=== PATIENT | female | born 1960 | race Caucasian/White ===

== ENCOUNTER 2019-12-11 15:02 | Emergency (ER) | payer BC, SELFPAY ==
[2019-12-11 15:24] VITALS: BP 142/82; PULSE 86; RESP 18; TEMP 36.7; O2SAT 96
--- NOTE | 2019-12-11 21:38 | ED.UPPEXIN ---
HPI - Extremity Injury (Upper) General Chief Complaint: Extremity Injury, Upper Stated Complaint: left arm swelling Time Seen by Provider: 12/11/19 16:04 Source: patient Mode of arrival: ambulatory Limitations: no limitations History of Present Illness HPI narrative: Patient presents for tingling and pain in her left upper extremity that began after falling on the extremity 3 months ago. Patient states that she complains of has had intermittent discomfort to the area since the event. Patient states that she has had x-ray imaging of her neck shoulder and arm which were negative. Patient reports she has intermittent tingling and cramping-like pain to the left arm. Patient reports she does have a history of neuropathy and she has had to have nerve conduction studies on her lower extremities. Patient denies new injury or direct injury to her neck. Patient denies any chest pain or pain radiating from her chest into her jaw or in her arm. Patient states that she had a EKG on due to her impending surgery which was normal. Related Data Home Medications Medication Instructions Recorded Confirmed acetaminophen-codeine tablet 12/11/19 atorvastatin 12/11/19 fluoxetine mg 12/11/19 omeprazole 12/11/19 ropinirole mg 12/11/19 sucralfate 12/11/19 Allergies Allergy/AdvReac Type Severity Reaction Status Date / Time hydrocodone Allergy Severe HALLUCINATI Verified 11/03/18 14:38 ONS morphine Allergy Severe ANAPHYLAXIS Verified 11/03/18 14:38 adhesive tape Allergy Intermediate Rash Verified 11/03/18 14:38 latex Allergy Unknown Itching Verified 12/11/19 16:01 Sulfa (Sulfonamide Allergy Unknown shortness Verified 10/02/15 14:16 Antibiotics) of breath and itching sulfanilamide Allergy Unknown Anaphylaxis Verified 12/11/19 16:01 Review of Systems Review of Systems: Narrative: CONSTITUTIONAL: Denies fever, chills, or sweats. EYES: Denies visual changes, redness, or discharge. ENT: Denies rhinorrhea, congestion, sore throat, or otalgia. CARDIOVASCULAR: Denies chest pain, palpitations, or edema. RESPIRATORY: Denies cough or dyspnea. GASTROINTESTINAL: Denies abdominal pain, nausea, vomiting, or diarrhea. GENITOURINARY: Denies dysuria or hematuria. SKIN: Denies rash or itching. MUSCULOSKELETAL: Reports left arm pain denies back pain, joint pain, or myalgia. NEUROLOGIC: Denies headache, numbness, dizziness, or weakness. PSYCHIATRIC: Denies anxiety or depression. [facility] Past Medical History Medical History (Updated 12/11/19 @ 17:10 by Donnie Briones PA-C) History of hypertension History of sleep apnea Surgical History Surgical History (Updated 05/14/19 @ 14:48 by Karen Bosch PA-C) History of cholecystectomy History of hysterectomy History of inguinal hernia repair Family History Family History (Updated 12/07/15 @ 23:19 by DOCTOR UNKNOWN) Father Hypertension Cerebrovascular accident Family history of diabetes mellitus in first degree relative Family history of heart disease in male family member before age 55 Family history of type 1 diabetes mellitus Mother Hypertension Family history of malignant neoplasm of breast in first degree relative Other Asthma Depression Family history of allergic disorder Family history of arthritis Social History Social History Smoking status: Never smoker Second hand tobacco smoke exposure: No Alcohol intake: never Gender identity (if verbalized by the patient): Female Exam Narrative: Exam Narrative: GENERAL: Well-appearing, well-nourished, and in no acute distress. HEAD: Normocephalic, atraumatic. EYES: PERRLA and EOMI. ENT: Nares clear, no rhinorrhea or epistaxis. Mucous membranes moist. Oropharynx without tonsillar hypertrophy exudate or other lesions. Bilateral TMs pearly benavidez nonbulging NECK: Supple. No adenopathy or masses. CHEST: Clear to auscultation. No respiratory distress. No wheezes rales or rhonchi HEART: Regu
== END 2019-12-11 17:25 | disposition home or self-care (01) ==
PROVIDERS: Emergency Provider Emergency Medicine; PCP Nurse Practitioner Adult Health
DX: M79.602 Pain in left arm (principal); R20.2 Paresthesia of skin; I10 Essential (primary) hypertension; G47.30 Sleep apnea, unspecified
CPT/HCPCS: 99282

== ENCOUNTER 2020-02-08 18:52 | Emergency (ER) | payer BC, SELFPAY ==
--- NOTE | ~2020-02-08 | XR_ITS ---
EXAMINATION: XR wrist RT min 3V DATE: 02/08/2020 19:33 INDICATION: Annual sided right wrist pain TECHNIQUE: Posteroanterior, ulnar deviation, oblique, and lateral views of the right wrist were obtai rgant. COMPARISON: none FINDINGS: Alignment is normal. No fracture. Mild osteoarthritis at the first metacarpophalangeal and interphala ngeal joints. No cortical erosions. Soft tissues are unremarkable. IMPRESSION: 1. 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 No acute osseous abnormality. Reviewed, dictated and finalized at location A.
[2020-02-08 18:57] VITALS: BP 124/75; PULSE 78; RESP 16; TEMP 36.1; O2SAT 100
--- NOTE | 2020-02-08 19:30 | ED.GENADULT ---
HPI - General Adult General Chief complaint: Extremity Injury, Upper Stated complaint: hurt my wrist Time Seen by Provider: 02/08/20 19:00 Source: patient Mode of arrival: ambulatory Limitations: no limitations History of Present Illness HPI narrative: Patient is a 59-year-old female who presents to emergency department for evaluation of right wrist pain since the weekend after lifting objects patient notes pain along the radial aspect of the wrist worse with activity and movement. Patient denies other injury or trauma taking anti-inflammatory with minimal improvement Related Data Home Medications Medication Instructions Recorded Confirmed fluoxetine 60 mg DAILY 12/11/19 omeprazole DAILY 12/11/19 ropinirole mg HS 12/11/19 pregabalin BID 02/08/20 trazodone HS 02/08/20 Allergies Allergy/AdvReac Type Severity Reaction Status Date / Time hydrocodone Allergy Severe HALLUCINATI Verified 02/08/20 19:08 ONS morphine Allergy Severe ANAPHYLAXIS Verified 02/08/20 19:08 adhesive tape Allergy Intermediate Rash Verified 02/08/20 19:08 latex Allergy Intermediate Itching Verified 02/08/20 19:08 Sulfa (Sulfonamide Allergy Unknown shortness Verified 02/08/20 19:08 Antibiotics) of breath and itching Review of Systems Review of Systems: All systems reviewed & are unremarkable except as noted in HPI and below PMFSH Past Medical History Medical History History of hypertension History of sleep apnea Surgical History Surgical History History of cholecystectomy History of hysterectomy History of inguinal hernia repair Family History Family History (Updated 12/07/15 @ 23:19 by DOCTOR UNKNOWN) Father Hypertension Cerebrovascular accident Family history of diabetes mellitus in first degree relative Family history of heart disease in male family member before age 55 Family history of type 1 diabetes mellitus Mother Hypertension Family history of malignant neoplasm of breast in first degree relative Other Asthma Depression Family history of allergic disorder Family history of arthritis Social History Social History Smoking status: Never smoker Second hand tobacco smoke exposure: No Alcohol intake: never Gender identity (if verbalized by the patient): Female Exam Narrative: Exam Narrative: GENERAL: Well-appearing, well-nourished, and in no acute distress. HEAD: Normocephalic, atraumatic. EYES: PERRLA and EOMI. ENT: Nares clear, no rhinorrhea or epistaxis. Mucous membranes moist. EXTREMITIES: Normal range of motion. No edema. Tenderness of the radial aspect of the right wrist with no deformity noted SKIN: Warm, dry, no rash. NEURO: No focal deficits. Alert and oriented x3. Neurovascularly intact. Capillary refill less than 2 seconds PSYCH: Normal mood and affect. Course Course Emergency Course: Patient in the room in no distress aware of case findings treatment plan and diagnosis Vital Signs Vital signs: Vital Signs Temperature 96.9 F L 02/08/20 18:57 Pulse Rate 78 02/08/20 18:57 Respiratory Rate 16 02/08/20 18:57 Blood Pressure 124/75 02/08/20 18:57 Pulse Oximetry 100 02/08/20 18:57 Temperature 96.9 F L 02/08/20 18:57 Pulse Rate 78 02/08/20 18:57 Respiratory Rate 16 02/08/20 18:57 Blood Pressure 124/75 02/08/20 18:57 Pulse Oximetry 100 02/08/20 18:57 Medical Decision Making [facility] Narrative Medical decision making narrative: Patients injury or pain is consistent with musculoskeletal etiology. No signs of neurological or vascular compromise on exam. Compartments and tisues are soft without signs of compartment syndrome. Pain is felt appropriate for further evaluation on an outpatient basis. Vital Signs Vital Signs: Vital Signs Temperature 96.9 F L 02/08/20 18:57
[2020-02-08 19:56] VITALS: BP 123/81; PULSE 77; RESP 16; TEMP 36.7; O2SAT 100
== END 2020-02-08 19:57 | disposition home or self-care (01) ==
PROVIDERS: Emergency Provider Emergency Medicine; PCP Nurse Practitioner Adult Health
DX: S63.501A Unspecified sprain of right wrist, initial encounter (principal); S66.911A Strain of unspecified muscle, fascia and tendon at wrist and hand level, right hand, initial encounter; I10 Essential (primary) hypertension; G47.30 Sleep apnea, unspecified; X50.0XXA Overexertion from strenuous movement or load, initial encounter
CPT/HCPCS: 73110; 99283

== ENCOUNTER 2020-02-28 17:13 | Emergency (ER) | payer BC, SELFPAY ==
--- NOTE | ~2020-02-28 | XR_ITS ---
EXAMINATION: XR chest 2V EXAM DATE: 02/28/2020 17:38 INDICATION: Mid chest pain O2opxak, shortness of breath, Hx hypertension, Worse Laying Down . TECHNIQUE: Frontal and lateral projections of the chest obtained and reviewed. Comparison is made to prior examination from 05/14/2019. FINDINGS: The lungs are clear. There are no pleural effusions. The cardiomediastinal silhouette is within normal limits. There is no pneumothorax suspected. The bones and soft tissues are unremarkab le. Gastric banding device. IMPRESSION: No acute cardiopulmonary findings. Reviewed, dictated and finalized at location A.
--- NOTE | ~2020-02-28 | CT_ITS ---
EXAMINATION: CTA chest PE protocol EXAM DATE: 02/28/2020 19:26 INDICATION: Shortness of breath, chest pain for 3 weeks. TECHNIQUE: Spiral CTA of the chest (pulmonary arteries) was performed with 100 cc Omnipaque 350 intr avenous contrast injection. Images were acquired during the pulmonary arterial phase. Coronal maxi mum intensity projection 3D-reconstructions were created by the technologist on dedicated workstation . Axial, coronal and sagittal reformatted images were reviewed. The dose-length product (DLP) for t his examination was 996.40 mGy-cm. The exposure was tailored according to patient size (auto mA exp osure control), and iterative reconstruction (ASIR) was used as additional dose reduction technique. There is no prior study for comparison. FINDINGS: Pulmonary arteries are well opacified and without intraluminal filling defects. No thorac ic aortic dissection. Linear left basilar atelectasis. Some dependent mosaic attenuation, appearance most consistent with air trapping. No confluent consolidation. There are no pleural or pericardial effusions. Tracheobronchial tree is patent. There is no mediastinal, hilar or axillary lymphadeno henny. There is no pneumothorax. Heart normal in size. No evidence of coronary arterial calcifi cation. Gastric banding device. Cholecystectomy clips. There is moderate thoracic spondylosis witho ut osteoblastic or osteolytic lesions identified. IMPRESSION: 1. No pulmonary emboli. 2. Left basilar linear atelectasis. 3. Dependent mosaic attenuation probably air trapping. Reviewed, dictated and finalized at location A.
--- NOTE | 2020-02-28 17:13 | ECG_ITS ---
Measurements Intervals [place] Rate: 81 P: 31 ME: 146 QRS: -1 QRSD: 97 T: 16 QT: 384 QTc: 448 Interpretive Statements SINUS RHYTHM VOLTAGE CRITERIA FOR LVH BORDERLINE ECG Electronically Signed On 02-29-2020 6:43:11 CDT by Corey Olivia D.O.
[2020-02-28 17:14] VITALS: BP 136/72; PULSE 83; RESP 15; TEMP 36.6; O2SAT 97
[2020-02-28 17:21] VITALS: BP 136/72; PULSE 83; PULSE 86; RESP 20; O2SAT 97
--- NOTE | 2020-02-28 17:23 | ED.GENADULT ---
HPI - General Adult General Chief complaint: Chest Pain Stated complaint: CP/SOB Time Seen by Provider: 02/28/20 17:16 Source: patient History of Present Illness HPI narrative: Patient is a 59 y/o female complaining of intermittent chest pain during last 3 weeks. Her current episode of pain started 2 days ago. She states that her pain is located in the midsternal area with radiation to left arm sometimes. She rates her pain as 5/10 and she states laying down aggravates her pain sometimes. She has a chronic cough. She denies any fever, chills or shortness of breath. Related Data Home Medications Medication Instructions Recorded Confirmed fluoxetine 60 mg DAILY 12/11/19 omeprazole DAILY 12/11/19 ropinirole mg HS 12/11/19 pregabalin BID 02/08/20 trazodone HS 02/08/20 acetaminophen-codeine 1 tablet PO Q6H PRN 02/28/20 aspirin 81 mg PO DAILY 02/28/20 celecoxib 200 mg PO DAILY 02/28/20 fluconazole [Diflucan] 100 mg PO DAILY 02/28/20 fluoxetine 40 mg PO DAILY 02/28/20 lidocaine HCl [Lidocaine Viscous] 1 applic MUCOUS MEMBRANE TID PRN 02/28/20 nystatin unit VAGINAL 02/28/20 02/28/20 rosuvastatin 20 mg PO DAILY 02/28/20 sucralfate g 02/28/20 02/28/20 tizanidine 4 mg PO Q8H PRN 02/28/20 Allergies Allergy/AdvReac Type Severity Reaction Status Date / Time hydrocodone Allergy Severe HALLUCINATI Verified 02/08/20 19:08 ONS morphine Allergy Severe ANAPHYLAXIS Verified 02/08/20 19:08 adhesive tape Allergy Intermediate Rash Verified 02/08/20 19:08 latex Allergy Intermediate Itching Verified 02/08/20 19:08 Sulfa (Sulfonamide Allergy Unknown shortness Verified 02/08/20 19:08 Antibiotics) of breath and itching Review of Systems Constitutional: Constitutional: Denies chills, Denies fever(s), Denies headache(s) and Denies weakness Eyes: Eyes: Denies blurry vision ENT: Denies headache(s) and Denies neck pain Cardiovascular: Cardiovascular: Reports chest pain and Denies dyspnea Respiratory: Respiratory: Reports cough and Denies dyspnea Gastrointestinal: Gastrointestinal: Denies abdominal pain, Denies diarrhea, Denies nausea and Denies vomiting Genitourinary: Genitourinary: Denies hematuria and Denies dysuria Musculoskeletal: Musculoskeletal: Denies back pain and Denies neck pain Neurologic: Denies headache(s) and Denies weakness [facility] Past Medical History Medical History (Updated 02/28/20 @ 21:12 by Darshana Rogers MD) History of hypertension History of sleep apnea Surgical History Surgical History History of cholecystectomy History of hysterectomy History of inguinal hernia repair Family History Family History Father Hypertension Cerebrovascular accident Family history of diabetes mellitus in first degree relative Family history of heart disease in male family member before age 55 Family history of type 1 diabetes mellitus Mother Hypertension Family history of malignant neoplasm of breast in first degree relative Other Asthma Depression Family history of allergic disorder Family history of arthritis Social History Social History Smoking status: Never smoker Second hand tobacco smoke exposure: No Alcohol intake: never Gender identity (if verbalized by the patient): Female Exam Const: General: no acute distress and well developed Orientation/consciousness: oriented to person, oriented to place, oriented to time and patient oriented x3 HENMT: Head: normocephalic Ears: external ears normal General nose exam: Normal external nose present Eyes: General: appearance normal, both eyes and all related structures Conjunctivae: conjunctivae normal Neck: Neck: normal visual inspection and full ROM Chest: Chest palpation & inspection: normal inspection of the chest and no tenderness Resp: Effort & Inspection: nor
[2020-02-28 17:41] LABS: Basophils Percent Auto 0.5 % (0.2-1.2); Eosinophils Absolute Auto 0.4 K/mm3 (0-0.3); Eosinophils Percent Auto 4.6 % (0-4.4); Hematocrit 35.5 % (37.0-47.0); Hemoglobin 11.1 g/dL (12.0-15.0); Immature Granulocyte Absolute 0.04 K/mm3 (0.00-0.031); Immature Granulocyte Percent A 0.5 % (0-0.5); Lymphocytes Absolute Auto 1.69 K/mm3 (0.9-3.2); Lymphocytes Percent Auto 19.1 % (18.3-44.2); Mean Corpuscular HGB Conc 31.3 g/dl (32-36); Mean Corpuscular Hemoglobin 25.8 pg (26-34); Mean Corpuscular Volume 82.6 fl (80-100); Mean Platelet Volume 10.5 fl (7.4-10.4); Monocytes Absolute Auto 0.6 K/mm3 (0.1-0.6); Monocytes Percent Auto 6.7 % (2.6-8.5); Neutrophils Absolute Auto 6.1 K/mm3 (1.3-6.7); Neutrophils Percent Auto 68.6 % (45.5-73.1); Platelet Count Result 272 k/mm3 (150-375); Red Cell Distribution Width 14.7 % (11.5-14.5); White Blood Count 8.8 K/mm3 (4.5-10.0)
--- NOTE | 2020-02-28 17:46 | PC.NURSE ---
RADHA OCONNOR INFORMED THAT PT IS MODERATE RISK ON COLUM[place]IA SCALE, NO NEW ORDERS.
[2020-02-28 17:54] LABS: Anion Gap 4 mmol/L (8-16); Blood Urea Nitrogen 19 mg/dL (7-17); Calcium 9.2 mg/dL (8.4-10.2); Carbon Dioxide 33 mmol/L (22-30); Chloride 101 mmol/L (98-107); Estimated CRCL calculation 75 ml/min; Estimated Glomerular Filt Rate > 60; Glucose 93 mg/dL (65-105); Potassium 4.2 mmol/L (3.4-5.0); Prothrombin Time 13.2 Seconds (11.1-14.7); Sodium 138 mmol/L (137-145)
[2020-02-28 17:55] LABS: Partial Thromboplastin Time 26.6 SECONDS (22.3-36.8)
[2020-02-28 18:05] LABS: Troponin I < 0.012 ng/mL (0.000-0.034)
--- NOTE | 2020-02-28 18:38 | PC.NURSE ---
PT BACK FROM CT ASKING FOR AC IV FOR CONTRAST, DOES NOT WANT CONTRAST MEDIA PUSHED THROUGH WRIST IV THAT IS IN PLACE.
[2020-02-28 18:39] VITALS: BP 119/73; PULSE 87; RESP 20; O2SAT 97
[2020-02-28 19:00] VITALS: BP 123/73; PULSE 84; RESP 16; O2SAT 100
--- NOTE | 2020-02-28 19:13 | PC.NURSE ---
REPORT TO ANIVAL PUGA AT THIS TIME, SHE HAS ASSUMED PT CARE.
--- NOTE | 2020-02-28 19:13 | PC.NURSE ---
Assumed care of pt. Report from VIVIEN Payne
[2020-02-28 19:46] VITALS: BP 113/67; PULSE 85; RESP 20; O2SAT 98
[2020-02-28 20:33] LABS: Troponin I < 0.012 ng/mL (0.000-0.034)
[2020-02-28 21:15] VITALS: BP 111/64; PULSE 79; RESP 14; O2SAT 99
== END 2020-02-28 21:15 | disposition home or self-care (01) ==
PROVIDERS: Emergency Provider Emergency Medicine; PCP Nurse Practitioner Adult Health
DX: R07.9 Chest pain, unspecified (principal); I10 Essential (primary) hypertension; G47.30 Sleep apnea, unspecified
CPT/HCPCS: 36415; 71046; 71275; 80048; 84484; 85025; 85380; 85610; 85730; 93005; 99284; Q9967

== ENCOUNTER 2022-08-22 19:44 | Emergency (ER) | payer OTHER, SELFPAY ==
--- NOTE | 2022-08-22 19:46 | ED.GENADULT ---
HPI - General Adult General Chief complaint: Dental/Oral Stated complaint: MOUTH PAIN/SWELLING Time Seen by Provider: 08/22/22 19:48 Source: patient, RN notes reviewed and old records reviewed Mode of arrival: ambulatory Limitations: no limitations History of Present Illness HPI narrative: 61-year-old female presents to the [facility] with complaints of 3 hours of feeling like her mouth is swollen and painful has taken Benadryl, used mouthwash, use her nystatin Related Data Home Medications Medication Instructions Recorded Confirmed fluoxetine 20 mg capsule 60 mg DAILY 12/11/19 omeprazole 20 mg capsule,delayed DAILY 12/11/19 release ropinirole 1 mg tablet mg HS 12/11/19 pregabalin 150 mg capsule BID 02/08/20 trazodone 100 mg tablet HS 02/08/20 acetaminophen 300 mg-codeine 30 mg 1 tablet PO Q6H PRN Pain 02/28/20 tablet fluoxetine 40 mg capsule 40 mg PO DAILY 02/28/20 lidocaine HCl 2 % mucosal solution 1 applic mucous membrane TID PRN 02/28/20 (Lidocaine Viscous) Pain nystatin 100,000 unit vaginal unit vaginal 02/28/20 02/28/20 tablet Allergies Allergy/AdvReac Type Severity Reaction Status Date / Time hydrocodone Allergy Severe HALLUCINATI Verified 08/22/22 19:52 ONS morphine Allergy Severe ANAPHYLAXIS Verified 08/22/22 19:52 adhesive tape Allergy Intermediate Rash Verified 08/22/22 19:52 latex Allergy Intermediate Itching Verified 08/22/22 19:52 Sulfa (Sulfonamide Allergy Unknown shortness Verified 08/22/22 19:52 Antibiotics) of breath and itching Review of Systems Review of Systems: All systems reviewed & are unremarkable except as noted in HPI and below Constitutional: Constitutional: Reports no additional constitutional complaints Eyes: Eyes: Reports no additional eye complaints ENT: Reports as per HPI Cardiovascular: Cardiovascular: Reports no additional cardiovascular complaints, Denies chest pain and Denies dyspnea Respiratory: Respiratory: Reports no additional respiratory complaints, Denies chest congestion, Denies cough and Denies dyspnea Gastrointestinal: Gastrointestinal: Reports no additional gastrointestinal complaints, Denies abdominal pain, Denies nausea and Denies vomiting Musculoskeletal: Musculoskeletal: Reports no additional musculoskeletal complaints Integumentary/Breasts: Skin/Breast: Reports system reviewed and no additional complaints, except as docu Neurologic: Reports system reviewed and no additional complaints, except as documented Psychiatric: Psychiatric: Reports no additional psychiatric complaints Allergic/Immunologic: Allergic/Immunologic: Reports no additional allergic/immunologic complaints [facility] Past Medical History Medical History History of hypertension History of sleep apnea Surgical History Surgical History History of cholecystectomy History of hysterectomy History of inguinal hernia repair Family History Family History Father Hypertension Cerebrovascular accident Family history of diabetes mellitus in first degree relative Family history of heart disease in male family member before age 55 Family history of type 1 diabetes mellitus Mother Hypertension Family history of malignant neoplasm of breast in first degree relative Other Asthma Depression Family history of allergic disorder Family history of arthritis Social History Social History Smoking status: Never smoker Second hand tobacco smoke exposure: No Alcohol intake: never Gender identity (if verbalized by the patient): Female Comments At the time of my signature, I reviewed and agree with the nursing past medical, surgical, social, and family history. There is no relevant family history pertinent to the patient complaint. E
[2022-08-22 19:51] VITALS: BP 140/71; PULSE 77; RESP 16; TEMP 36.6; O2SAT 100
[2022-08-22 19:57] VITALS: BP 140/71; PULSE 77; RESP 16; TEMP 36.6; O2SAT 100
== END 2022-08-22 20:02 | disposition home or self-care (01) ==
PROVIDERS: Emergency Provider Nurse Practitioner
DX: K08.89 Other specified disorders of teeth and supporting structures (principal); I10 Essential (primary) hypertension
CPT/HCPCS: 99213; G0463

== ENCOUNTER 2022-09-17 08:09 | Emergency (ER) | payer OTHER, SELFPAY ==
[2022-09-17] VITALS (10 sets, daily range): BP systolic 95–148; BP diastolic 56–66; PULSE 83–100; RESP 17–22; TEMP 36.6–39.5; O2SAT 92–100
--- NOTE | ~2022-09-17 | XR_ITS ---
Clinical Indication: Shortness of breath, chest pain AP and lateral views of the chest: Comparison: 02/28/2020 Findings: The lungs are clear, without evidence of focal consolidation or pleural effusion. Cardiome diastinal silhouette is within normal limits. Bones and soft tissues are unremarkable. Impression: Normal chest. Reviewed, dictated and finalized at location . Impression: Normal chest.
--- NOTE | ~2022-09-17 | CT_ITS ---
EXAMINATION: CT BRAIN W/O DATE: 09/17/2022 09:02 INDICATION: Head injury. TECHNIQUE: Computed tomography (CT) of the head was performed without intravenous contrast. The dose- length product was 1059.33 mGy-cm. Automated exposure control and iterative reconstruction technique were employed. COMPARISON: No prior studies for comparison. FINDINGS: Normal brain parenchymal volume for age. Normal benavidez-white differentiation. No acute intrac ranial hemorrhage, infarction, mass or mass effect. No ventriculomegaly or midline shift. Midline sagittal images demonstrate a normal corpus callosum, c raniovertebral junction and sella turcica. Basilar cisterns are patent. There is a small air-fluid level in the right maxillary sinus. There is mucosal thickening of the eth moid sinuses. Mastoids are pneumatized. No depressed skull fractures. IMPRESSION: 1. No acute intracranial abnormality. Reviewed, dictated and finalized at location B.
--- NOTE | 2022-09-17 08:21 | ECG_ITS ---
Measurements Intervals [place] Rate: 88 P: 49 HI: 142 QRS: 18 QRSD: 90 T: 42 QT: 341 QTc: 413 Interpretive Statements SINUS RHYTHM NONSPECIFIC ST & T-WAVE ABNORMALITY- ANTEROLAT/INF LEADS BORDERLINE ECG COMPARED TO ECG 02/28/2020 17:17:02 ST-T WAVE ABNORMALITY NOW PRESENT Electronically Signed On 09-17-2022 9:02:55 CDT by Corey Olivia D.O.
[2022-09-17] MEDS: ASPIRIN 81 MG CHEWABLE TABLET 324 MG PO (08:38)
[2022-09-17 08:47] LABS: Basophils Percent Auto 0.5 % (0.2-1.2); Eosinophils Absolute Auto 0.3 K/mm3 (0-0.3); Eosinophils Percent Auto 3.6 % (0-4.4); Hematocrit 35.9 % (37.0-47.0); Hemoglobin 10.9 g/dL (12.0-15.0); Immature Granulocyte Absolute 0.02 K/mm3 (0.00-0.031); Immature Granulocyte Percent A 0.2 % (0-0.5); Lymphocytes Absolute Auto 0.75 K/mm3 (0.9-3.2); Lymphocytes Percent Auto 8.7 % (18.3-44.2); Mean Corpuscular HGB Conc 30.4 g/dl (32-36); Mean Corpuscular Hemoglobin 26.1 pg (26-34); Mean Corpuscular Volume 86.1 fl (80-100); Mean Platelet Volume 10.3 fl (7.4-10.4); Monocytes Absolute Auto 0.3 K/mm3 (0.1-0.6); Monocytes Percent Auto 3.9 % (2.6-8.5); Neutrophils Absolute Auto 7.2 K/mm3 (1.3-6.7); Neutrophils Percent Auto 83.1 % (45.5-73.1); Platelet Count Result 221 k/mm3 (150-375); Red Blood Count 4.17 M/mm3 (4.2-5.4); Red Cell Distribution Width 16.6 % (11.5-14.5); White Blood Count 8.6 K/mm3 (4.5-10.0)
[2022-09-17] MEDS: LEVALBUTEROL NEB 1.25 MG/3 ML 2.5 MG INHALATION (08:55)
[2022-09-17] MEDS: IPRATROPIUM BR 0.02% INH SOLN 0.5 MG/2.5 ML VIAL 1.5 MG INHALATION (08:55)
[2022-09-17 08:58] LABS: Alanine Aminotransferase 31 U/L (6-35); Albumin Level 4.1 g/dL (3.5-5.1); Alkaline Phosphatase 92 U/L (38-126); Anion Gap 7 mmol/L (8-16); Aspartate Amino Transferase 44 U/L (14-36); Bilirubin,Total 0.7 mg/dL (0.2-1.3); Blood Urea Nitrogen 9 mg/dL (7-17); Calcium 8.9 mg/dL (8.4-10.2); Carbon Dioxide 30 mmol/L (22-30); Chloride 103 mmol/L (98-107); Estimated CRCL calculation 62 ml/min; Estimated Glomerular Filt Rate 56; Glucose 96 mg/dL (65-110); Lipase 47 U/L (23-300); Sodium 140 mmol/L (137-145)
[2022-09-17 09:04] LABS: Prothrombin Time 13.5 Seconds (11.1-14.7)
[2022-09-17 09:05] LABS: Partial Thromboplastin Time 28.7 SECONDS (22.3-36.8)
[2022-09-17 09:09] LABS: Troponin I < 0.012 ng/mL (0.000-0.034)
[2022-09-17] MEDS: KETOROLAC 30 MG/ML VIAL (*BKC) IV PUSH (10:50)
--- NOTE | 2022-09-17 10:50 | PC.NURSE ---
Pt states she feels feverish, temp obtained, axillary temp of 103.1, Dr. Thompson notified
--- NOTE | 2022-09-17 11:04 | ED.GENADULT ---
HPI - General Adult General Chief complaint: Unspecified Stated complaint: i cant have hardly breath Time Seen by Provider: 09/17/22 08:28 History of Present Illness HPI narrative: Patient is a 61-year-old female who presents ER with multiple complaints. Her major complaint is shortness of breath beginning 2 days ago after mowing the lawn. She has developed productive cough and shortness of breath that worsened last night. Subjective fevers and chills. She has chest pain that is described as tight. Patient has frequent coughing and has trouble finishing a sentence. Patient also reports that she fell 10 days ago off of a deck. No loss of consciousness but has had some mild headache since then. No extremity injury or numbness or tingling. She is not on any blood thinners. Related Data Home Medications Medication Instructions Recorded Confirmed fluoxetine 20 mg capsule 60 mg DAILY 12/11/19 08/22/22 omeprazole 20 mg capsule,delayed 20 mg PO DAILY 12/11/19 08/22/22 release ropinirole 1 mg tablet 1 mg PO HS 12/11/19 08/22/22 pregabalin 150 mg capsule 150 mg PO BID 02/08/20 08/22/22 trazodone 100 mg tablet 100 mg PO HS 02/08/20 08/22/22 acetaminophen 300 mg-codeine 30 mg 1 tablet PO Q6H PRN Pain 02/28/20 08/22/22 tablet fluoxetine 40 mg capsule 40 mg PO DAILY 02/28/20 08/22/22 lidocaine HCl 2 % mucosal solution 1 applic mucous membrane TID PRN 02/28/20 08/22/22 (Lidocaine Viscous) Pain nystatin 100,000 unit vaginal 1 unit vaginal DAILY 02/28/20 08/22/22 tablet Allergies Allergy/AdvReac Type Severity Reaction Status Date / Time hydrocodone Allergy Severe HALLUCINATI Verified 08/22/22 19:52 ONS morphine Allergy Severe ANAPHYLAXIS Verified 08/22/22 19:52 adhesive tape Allergy Intermediate Rash Verified 08/22/22 19:52 latex Allergy Intermediate Itching Verified 08/22/22 19:52 Sulfa (Sulfonamide Allergy Unknown shortness Verified 08/22/22 19:52 Antibiotics) of breath and itching Review of Systems Review of Systems: All systems reviewed & are unremarkable except as noted in HPI and below Constitutional: Constitutional: Denies chills and Denies fever(s) ENT: Denies sinus pressure and Denies sore throat Cardiovascular: Cardiovascular: Reports chest pain, Denies radiating jaw, neck or arm pain and Denies palpitations Respiratory: Respiratory: Reports cough, Reports dyspnea and Reports wheezing Gastrointestinal: Gastrointestinal: Denies abdominal pain, Denies diarrhea, Denies nausea and Denies vomiting PMFSH Past Medical History Medical History (Updated 09/17/22 @ 13:34 by Trey Thompson MD) History of hypertension History of sleep apnea Surgical History Surgical History History of cholecystectomy History of hysterectomy History of inguinal hernia repair Family History Family History Father Hypertension Cerebrovascular accident Family history of diabetes mellitus in first degree relative Family history of heart disease in male family member before age 55 Family history of type 1 diabetes mellitus Mother Hypertension Family history of malignant neoplasm of breast in first degree relative Other Asthma Depression Family history of allergic disorder Family history of arthritis Social History Social History Smoking status: Never smoker Second hand tobacco smoke exposure: No Alcohol intake: never Gender identity (if verbalized by the patient): Female Exam Narrative: GENERAL: Ill-appearing, well-nourished, and in no acute distress. HEAD: Normocephalic, atraumatic. EYES: PERRL and EOMI. ENT: Mucous membranes moist. CHEST: Coarse rales and wheezing bilaterally with frequent coughing. Mild respiratory distress. HEART: Regular rate and rhythm. Normal peripheral pulses. ABDOMEN: Soft, nontender, nondi
[2022-09-17] MEDS: POTASSIUM CHLORIDE 20 MEQ TABLET 40 MEQ PO (11:25)
[2022-09-17 11:56] LABS: Influenza A QL RT-PCR Negative (Negative); Influenza B QL RT-PCR Negative (Negative); SARS-CoV-2 RNA PCR Negative (Negative)
[2022-09-17 12:01] LABS: Troponin I < 0.012 ng/mL (0.000-0.034)
== END 2022-09-17 13:48 | disposition home or self-care (01) ==
PROVIDERS: Emergency Provider Emergency Medicine; PCP Physician Assistant
DX: J18.9 Pneumonia, unspecified organism (principal); R09.1 Pleurisy; Z20.822 Contact with and (suspected) exposure to COVID-19; I10 Essential (primary) hypertension; G47.30 Sleep apnea, unspecified; Z90.710 Acquired absence of both cervix and uterus; R94.31 Abnormal electrocardiogram [ECG] [EKG]
CPT/HCPCS: 36415; 70450; 71046; 80053; 83690; 84484; 85025; 85610; 85730; 87636; 93005; 94640; 96374; 99284; A9270; J1885

== ENCOUNTER 2022-10-02 18:28 | Emergency (ER) | payer OTHER, SELFPAY ==
--- NOTE | ~2022-10-02 | XR_ITS ---
EXAMINATION: XR chest 2V DATE: 10/02/2022 20:20 INDICATION: Shortness of breath. Pneumonia. TECHNIQUE: Frontal and lateral views of the chest were obtained. COMPARISON: Chest 2 views 09/17/2022 FINDINGS: The chest demonstrates clear lungs without pneumonia, pleural effusion, or pneumothorax. Th e heart size is normal. There is mild chronic anterior wedging of multiple vertebral bodies. There ar e surgical clips in the abdomen. IMPRESSION: 1. No acute cardiopulmonary disease. Reviewed, dictated and finalized at location E.
[2022-10-02 18:38] VITALS: BP 135/74; PULSE 72; RESP 18; TEMP 36.8; O2SAT 98
--- NOTE | 2022-10-02 18:42 | ECG_ITS ---
Measurements Intervals [place] Rate: 68 P: 42 GA: 168 QRS: 8 QRSD: 101 T: -2 QT: 401 QTc: 428 Interpretive Statements SINUS RHYTHM DELAYED PRECORDIAL R/S TRANSITION NONSPECIFIC ST & T-WAVE ABNORMALITY- ANT/INF LEADS BASELINE ARTIFACT- V5 BORDERLINE ECG COMPARED TO ECG 09/17/2022 08:27:15 NO SIGNIFICANT CHANGES Electronically Signed On 10-03-2022 6:33:36 CDT by Corey Olivia D.O.
--- NOTE | 2022-10-02 19:29 | ED.GENADULT ---
HPI - General Adult General Chief complaint: Shortness of Breath/Dyspnea Stated complaint: Mouth pain Time Seen by Provider: 10/02/22 19:02 History of Present Illness HPI narrative: This is a 61-year-old female with history of fibromyalgia presenting ED with mouth pain. The patient is diagnosed with pneumonia last week and was treated with antibiotics. Her condition is improved but she has developed pain throughout her mouth. She relates it to when she has had thrush in the past. She has been taking Tylenol threes with some improvement. She does have a residual cough from the ammonia that has been bothering her but she is not taking a cough medicine yet. Patient denies fever, chills, trouble swallowing her secretions or shortness of breath. The patient called her primary care physician who told her to come to the emergency room for evaluation. Related Data Home Medications Medication Instructions Recorded Confirmed fluoxetine 20 mg capsule 60 mg DAILY 12/11/19 08/22/22 omeprazole 20 mg capsule,delayed 20 mg PO DAILY 12/11/19 08/22/22 release ropinirole 1 mg tablet 1 mg PO HS 12/11/19 08/22/22 pregabalin 150 mg capsule 150 mg PO BID 02/08/20 08/22/22 trazodone 100 mg tablet 100 mg PO HS 02/08/20 08/22/22 acetaminophen 300 mg-codeine 30 mg 1 tablet PO Q6H PRN Pain 02/28/20 08/22/22 tablet fluoxetine 40 mg capsule 40 mg PO DAILY 02/28/20 08/22/22 lidocaine HCl 2 % mucosal solution 1 applic mucous membrane TID PRN 02/28/20 08/22/22 (Lidocaine Viscous) Pain nystatin 100,000 unit vaginal 1 unit vaginal DAILY 02/28/20 08/22/22 tablet Allergies Allergy/AdvReac Type Severity Reaction Status Date / Time hydrocodone Allergy Severe HALLUCINATI Verified 10/02/22 18:28 ONS morphine Allergy Severe ANAPHYLAXIS Verified 10/02/22 18:28 adhesive tape Allergy Intermediate Rash Verified 10/02/22 18:28 latex Allergy Intermediate Itching Verified 10/02/22 18:28 Sulfa (Sulfonamide Allergy Unknown shortness Verified 10/02/22 18:28 Antibiotics) of breath and itching PMFSH Past Medical History Medical History Fibromyalgia History of hypertension History of sleep apnea Surgical History Surgical History History of cholecystectomy History of hysterectomy History of inguinal hernia repair Family History Family History Father Hypertension Cerebrovascular accident Family history of diabetes mellitus in first degree relative Family history of heart disease in male family member before age 55 Family history of type 1 diabetes mellitus Mother Hypertension Family history of malignant neoplasm of breast in first degree relative Other Asthma Depression Family history of allergic disorder Family history of arthritis Social History Social History Smoking status: Never smoker Second hand tobacco smoke exposure: No Alcohol intake: never Gender identity (if verbalized by the patient): Female Exam Narrative: APPEARANCE: No apparent distress. Head: oral examination revealed no obvious ulcerations. There are some white clumps in the buccal surfaces. EYES: EOMI, NOSE: Atraumatic NECK: Trachea midline No audible stridor RESPIRATORY: No increased rate of breathing, clear auscultation CARDIOVASCULAR: RRR, no peripheral edema ABDOMINAL: Non-distended MUSCULOSKELETAl: No obvious deformities NEURO: Alert. Moving 4/4 extremities SKIN:: Warm, dry. Normal color PSYCHIATRIC: Normal affect Course Vital Signs Vital signs: Vital Signs Temperature 98.3 F 10/02/22 18:38 Pulse Rate 72 10/02/22 18:38 Respiratory Rate 18 10/02/22 18:38 Blood Pressure 135/74 10/02/22 18:38 Pulse Oximetry 98 10/02/22 18:38 Oxygen Delivery Room Air 10/02/22 18:38 Temperatu
[2022-10-02 19:34] LABS: Basophils Percent Auto 0.4 % (0.2-1.2); Eosinophils Absolute Auto 0.4 K/mm3 (0-0.3); Eosinophils Percent Auto 4.2 % (0-4.4); Hematocrit 33.9 % (37.0-47.0); Hemoglobin 10.5 g/dL (12.0-15.0); Immature Granulocyte Absolute 0.04 K/mm3 (0.00-0.031); Immature Granulocyte Percent A 0.4 % (0-0.5); Lymphocytes Absolute Auto 1.48 K/mm3 (0.9-3.2); Lymphocytes Percent Auto 15.5 % (18.3-44.2); Mean Corpuscular Hemoglobin 25.8 pg (26-34); Mean Corpuscular Volume 83.3 fl (80-100); Mean Platelet Volume 10.2 fl (7.4-10.4); Monocytes Absolute Auto 0.7 K/mm3 (0.1-0.6); Neutrophils Absolute Auto 6.9 K/mm3 (1.3-6.7); Neutrophils Percent Auto 72.5 % (45.5-73.1); Platelet Count Result 239 k/mm3 (150-375); Red Blood Count 4.07 M/mm3 (4.2-5.4); Red Cell Distribution Width 15.4 % (11.5-14.5); White Blood Count 9.6 K/mm3 (4.5-10.0)
[2022-10-02 19:44] LABS: Alanine Aminotransferase 20 U/L (6-35); Albumin Level 3.8 g/dL (3.5-5.1); Alkaline Phosphatase 78 U/L (38-126); Anion Gap 3 mmol/L (8-16); Aspartate Amino Transferase 27 U/L (14-36); Bilirubin,Total 0.4 mg/dL (0.2-1.3); Blood Urea Nitrogen 8 mg/dL (7-17); Calcium 8.3 mg/dL (8.4-10.2); Carbon Dioxide 33 mmol/L (22-30); Chloride 105 mmol/L (98-107); Estimated CRCL calculation 73 ml/min; Estimated Glomerular Filt Rate > 60; Glucose 84 mg/dL (65-110); Potassium 3.1 mmol/L (3.4-5.0); Sodium 141 mmol/L (137-145)
[2022-10-02] MEDS: IBUPROFEN 400 MG TABLET 800 MG PO (20:05)
[2022-10-02] MEDS: NYSTATIN 100,000 UNITS/ML SUSP 5 ML ORAL.SUSP PO (20:05)
[2022-10-02] MEDS: BENZOCAINE 20% DENTAL GEL 9 GM TUBE 1 APPLIC BY MOUTH (20:06)
[2022-10-02 20:30] VITALS: BP 125/82; PULSE 65; RESP 18
== END 2022-10-02 20:32 | disposition home or self-care (01) ==
PROVIDERS: Family Medicine; Emergency Provider Emergency Medicine; PCP Physician Assistant
DX: B37.0 Candidal stomatitis (principal); M79.7 Fibromyalgia; I10 Essential (primary) hypertension; Z87.01 Personal history of pneumonia (recurrent); Z90.49 Acquired absence of other specified parts of digestive tract; Z90.710 Acquired absence of both cervix and uterus
CPT/HCPCS: 36415; 71046; 80053; 85025; 93005; 99284; A9270

== ENCOUNTER 2023-03-30 18:25 | Emergency (ER) | payer OTHER, SELFPAY ==
[2023-03-30] VITALS (8 sets, daily range): BP systolic 111–138; BP diastolic 56–73; PULSE 72–95; RESP 15–20; TEMP 36.6; O2SAT 88–97
--- NOTE | ~2023-03-30 | XR_ITS ---
EXAMINATION: XR chest 2V DATE: 03/30/2023 19:00 INDICATION: Cough and congestion TECHNIQUE: AP and lateral views of the chest are obtained. COMPARISON: 10/02/2022 FINDINGS: The lungs are free of acute opacities. No pleural effusion or pneumothorax. The cardiomedia stinal silhouette is normal. There is moderate thoracic spondylosis. IMPRESSION: 1. No acute cardiopulmonary abnormality. Reviewed, dictated and finalized at location F. X DEVOPS ENGINEER
--- NOTE | 2023-03-30 18:31 | ECG_ITS ---
Measurements Intervals [place] Rate: 78 P: 40 NE: 152 QRS: 12 QRSD: 92 T: 8 QT: 390 QTc: 446 Interpretive Statements SINUS RHYTHM NONSPECIFIC ST & T-WAVE ABNORMALITY- DIFFUSE LEADS BASELINE WANDER- I, II, III BORDERLINE ECG COMPARED TO ECG 10/02/2022 18:59:00 NO SIGNIFICANT CHANGES Electronically Signed On 03-30-2023 19:34:23 FIBERLINE SUPERVISOR by Corey Olivia D.O.
--- NOTE | 2023-03-30 18:32 | ED.SOB ---
HPI - SOB/Dyspnea General Chief Complaint: Shortness of Breath/Dyspnea Stated Complaint: cough, congestion Time Seen by Provider: 03/30/23 19:07 Source: patient Mode of arrival: ambulatory Limitations: no limitations History of Present Illness HPI Narrative: Patient is a 62 y/o female who presents to the ED with c/o URI sx's. Patient reports having cough, congestion, hoarse voice, shortness of breath, nausea, intermittent fevers (Tmax 104.1) since Thursday. She states the sob has progressively worsened. She has been around her mother who has been ill with similar sx's. She has been taking Tylenol without relief. She also reports having pain in her right lower back. Denies injury. Denies abdominal pain, vomiting, CP. Related Data Home Medications Medication Instructions Recorded Confirmed fluoxetine 20 mg capsule 60 mg DAILY 12/11/19 08/22/22 omeprazole 20 mg capsule,delayed 20 mg PO DAILY 12/11/19 08/22/22 release ropinirole 1 mg tablet 1 mg PO HS 12/11/19 08/22/22 pregabalin 150 mg capsule 150 mg PO BID 02/08/20 08/22/22 trazodone 100 mg tablet 100 mg PO HS 02/08/20 08/22/22 acetaminophen 300 mg-codeine 30 mg 1 tablet PO Q6H PRN Pain 02/28/20 08/22/22 tablet fluoxetine 40 mg capsule 40 mg PO DAILY 02/28/20 08/22/22 lidocaine HCl 2 % mucosal solution 1 applic mucous membrane TID PRN 02/28/20 08/22/22 (Lidocaine Viscous) Pain nystatin 100,000 unit vaginal 1 unit vaginal DAILY 02/28/20 08/22/22 tablet Allergies Allergy/AdvReac Type Severity Reaction Status Date / Time hydrocodone Allergy Severe HALLUCINATI Verified 10/02/22 18:28 ONS morphine Allergy Severe ANAPHYLAXIS Verified 10/02/22 18:28 adhesive tape Allergy Intermediate Rash Verified 10/02/22 18:28 latex Allergy Intermediate Itching Verified 10/02/22 18:28 Sulfa (Sulfonamide Allergy Unknown shortness Verified 10/02/22 18:28 Antibiotics) of breath and itching Review of Systems Constitutional: Constitutional: Reports fever(s) ENT: Reports nasal congestion Cardiovascular: Cardiovascular: Denies chest pain Respiratory: Respiratory: Reports chest congestion, Reports cough and Reports dyspnea Gastrointestinal: Gastrointestinal: Denies abdominal pain, Reports nausea and Denies vomiting Musculoskeletal: Musculoskeletal: Reports back pain and Reports myalgias [facility] Past Medical History Medical History Fibromyalgia History of hypertension History of sleep apnea Surgical History Surgical History History of cholecystectomy History of hysterectomy History of inguinal hernia repair Family History Family History Father Hypertension Cerebrovascular accident Family history of diabetes mellitus in first degree relative Family history of heart disease in male family member before age 55 Family history of type 1 diabetes mellitus Mother Hypertension Family history of malignant neoplasm of breast in first degree relative Other Asthma Depression Family history of allergic disorder Family history of arthritis Social History Social History Smoking status: Never smoker Second hand tobacco smoke exposure: No Alcohol intake: never Gender identity (if verbalized by the patient): Female Exam Const: General: ill appearing Nutritional Appearance: well nourished Orientation/consciousness: patient oriented x3 Limitations: no limitations Chest: Chest palpation & inspection: normal inspection of the chest Resp: Effort & Inspection: normal respiratory effort and labored (mildly) Auscultation: crackles on the left Cardio: Rate: regular rate Rhythm: regular rhythm Back/Spine/Pelvis: Other: tenderness throughout R lumbar/lateral back Course Vital Signs Vital signs: Vital
--- NOTE | 2023-03-30 19:28 | ED.GENADULT ---
HPI - General Adult General Chief complaint: Shortness of Breath/Dyspnea Stated complaint: cough, congestion Time Seen by Provider: 03/30/23 19:07 Source: patient Mode of arrival: ambulatory Limitations: no limitations History of Present Illness HPI narrative: Patient presents the emergency department from home with her . She denies history of asthma or COPD. She has been short of breath with cough for the past couple days. Also complains of a headache and low-grade fevers. Overall not feeling well. Related Data Home Medications Medication Instructions Recorded Confirmed fluoxetine 20 mg capsule 60 mg DAILY 12/11/19 08/22/22 omeprazole 20 mg capsule,delayed 20 mg PO DAILY 12/11/19 08/22/22 release ropinirole 1 mg tablet 1 mg PO HS 12/11/19 08/22/22 pregabalin 150 mg capsule 150 mg PO BID 02/08/20 08/22/22 trazodone 100 mg tablet 100 mg PO HS 02/08/20 08/22/22 acetaminophen 300 mg-codeine 30 mg 1 tablet PO Q6H PRN Pain 02/28/20 08/22/22 tablet fluoxetine 40 mg capsule 40 mg PO DAILY 02/28/20 08/22/22 lidocaine HCl 2 % mucosal solution 1 applic mucous membrane TID PRN 02/28/20 08/22/22 (Lidocaine Viscous) Pain nystatin 100,000 unit vaginal 1 unit vaginal DAILY 02/28/20 08/22/22 tablet Allergies Allergy/AdvReac Type Severity Reaction Status Date / Time hydrocodone Allergy Severe HALLUCINATI Verified 10/02/22 18:28 ONS morphine Allergy Severe ANAPHYLAXIS Verified 10/02/22 18:28 adhesive tape Allergy Intermediate Rash Verified 10/02/22 18:28 latex Allergy Intermediate Itching Verified 10/02/22 18:28 ketorolac Allergy Unknown Anxiety Verified 03/30/23 20:54 Sulfa (Sulfonamide Allergy Unknown shortness Verified 10/02/22 18:28 Antibiotics) of breath and itching Review of Systems Review of Systems: Negative except for as documented in the HPI [facility] Past Medical History Medical History Fibromyalgia History of hypertension History of sleep apnea Surgical History Surgical History History of cholecystectomy History of hysterectomy History of inguinal hernia repair Family History Family History Father Hypertension Cerebrovascular accident Family history of diabetes mellitus in first degree relative Family history of heart disease in male family member before age 55 Family history of type 1 diabetes mellitus Mother Hypertension Family history of malignant neoplasm of breast in first degree relative Other Asthma Depression Family history of allergic disorder Family history of arthritis Social History Social History Smoking status: Never smoker Second hand tobacco smoke exposure: No Alcohol intake: never Gender identity (if verbalized by the patient): Female Exam Narrative: GENERAL: Well-appearing, well-nourished, and in no acute distress. Not feeling well HEAD: Normocephalic, atraumatic. EYES: PERRLA and EOMI. ENT: Nares clear, no rhinorrhea or epistaxis. Mucous membranes moist. NECK: Supple. CHEST: Clear to auscultation. No respiratory distress. HEART: Regular rate and rhythm. ABDOMEN: Soft, nontender, nondistended. EXTREMITIES: Normal range of motion. No edema. SKIN: Warm, dry, no rash. NEURO: No focal deficits. Alert and oriented x3. PSYCH: Normal mood and affect. Course Course Emergency Course: Differential diagnosis includes but not limited to pneumonia, bronchitis, COVID, new onset CHF Vital Signs Vital signs: Vital Signs Temperature 36.6 C 03/30/23 18:27 Pulse Rate 90 03/30/23 18:27 Respiratory Rate 18 03/30/23 18:27 Blood Pressure 111/61 03/30/23 18:27 Pulse Oximetry 92 03/30/23 18:27 Oxygen Delivery Room Air 03/30/23 18:27 Temperature 36.6 C 03/30/23
[2023-03-30 19:39] LABS: Basophils Percent Auto 0.2 % (0.2-1.2); Eosinophils Percent Auto 0.1 % (0-4.4); Hematocrit 34.8 % (37.0-47.0); Hemoglobin 10.5 g/dL (12.0-15.0); Immature Granulocyte Absolute 0.06 K/mm3 (0.00-0.031); Immature Granulocyte Percent A 0.5 % (0-0.5); Lymphocytes Absolute Auto 1.06 K/mm3 (0.9-3.2); Lymphocytes Percent Auto 8.2 % (18.3-44.2); Mean Corpuscular HGB Conc 30.2 g/dl (32-36); Mean Corpuscular Hemoglobin 24.8 pg (26-34); Mean Corpuscular Volume 82.1 fl (80-100); Mean Platelet Volume 10.2 fl (7.4-10.4); Monocytes Absolute Auto 0.7 K/mm3 (0.1-0.6); Monocytes Percent Auto 5.7 % (2.6-8.5); Neutrophils Percent Auto 85.3 % (45.5-73.1); Platelet Count Result 193 k/mm3 (150-375); Red Blood Count 4.24 M/mm3 (4.2-5.4); Red Cell Distribution Width 16.4 % (11.5-14.5); White Blood Count 12.9 K/mm3 (4.5-10.0)
[2023-03-30] MEDS: ALBUTEROL SULFATE NEB 2.5 MG/3 ML INH INHALATION (19:41)
[2023-03-30] MEDS: METOCLOPRAMIDE HCL INJ 10 MG/2 ML VIAL IV PUSH (19:46)
[2023-03-30] MEDS: KETOROLAC 15 MG/ML VIAL (*BKC) 30 MG IV PUSH (19:46)
[2023-03-30] MEDS: SODIUM CHLORIDE 0.9% IV 1,000 ML 999 ML IV CONT (19:46)
[2023-03-30] MEDS: BENZONATATE 100 MG CAPSULE PO (19:46)
[2023-03-30] MEDS: diphenhydrAMINE HCl INJ 50 MG/ML VIAL 25 MG IV PUSH (19:47)
[2023-03-30 19:48] LABS: Alanine Aminotransferase 18 U/L (6-35); Albumin Level 3.5 g/dL (3.5-5.1); Alkaline Phosphatase 72 U/L (38-126); Anion Gap 8 mmol/L (8-16); Aspartate Amino Transferase 27 U/L (14-36); Bilirubin,Total 0.6 mg/dL (0.2-1.3); Blood Urea Nitrogen 10 mg/dL (7-17); Calcium 8.4 mg/dL (8.4-10.2); Carbon Dioxide 30 mmol/L (22-30); Chloride 103 mmol/L (98-107); Estimated CRCL calculation 70 ml/min; Estimated Glomerular Filt Rate > 60; Glucose 107 mg/dL (65-110); Magnesium 2.1 mg/dL (1.6-2.3); Potassium 3.4 mmol/L (3.4-5.0); Sodium 141 mmol/L (137-145)
[2023-03-30 19:57] LABS: INR 1.1; Prothrombin Time 14.9 Seconds (11.1-14.7)
[2023-03-30 19:58] LABS: Partial Thromboplastin Time 43.5 SECONDS (22.3-36.8)
[2023-03-30 20:00] LABS: Troponin I < 0.012 ng/mL (0.000-0.034)
[2023-03-30 20:15] LABS: Influenza A QL RT-PCR Negative (Negative); Influenza B QL RT-PCR Negative (Negative); SARS-CoV-2 RNA PCR Negative (Negative)
[2023-03-30] MEDS: rOPINIRole HCL 0.5 MG TABLET PO (20:15)
[2023-03-30 21:28] LABS: Procalcitonin 0.9 ng/mL
== END 2023-03-30 21:00 | disposition home or self-care (01) ==
PROVIDERS: Physician Assistant; Emergency Provider Emergency Medicine; PCP Physician Assistant
DX: J40 Bronchitis, not specified as acute or chronic (principal); I10 Essential (primary) hypertension; G47.30 Sleep apnea, unspecified; M79.7 Fibromyalgia
CPT/HCPCS: 36415; 71046; 80053; 83735; 84145; 84484; 85025; 85610; 85730; 87636; 93005; 94640; 96361; 96374; 96375; 99284; A9270; J1200; J1885; J2765; J7030

== ENCOUNTER 2023-04-04 14:56 | Emergency (ER) | payer OTHER, SELFPAY ==
[2023-04-04 15:13] VITALS: BP 130/57; PULSE 79; RESP 20; TEMP 37.1; O2SAT 94
--- NOTE | 2023-04-04 17:04 | PC.NURSE ---
Pt walked up to the triage desk and states, jey me off the list and walked out.
== END 2023-04-04 17:26 | disposition left against medical advice (07) ==
LOC: ANHED 17:17
PROVIDERS: PCP Physician Assistant
DX: R06.02 Shortness of breath (principal)
CPT/HCPCS: 99199

== ENCOUNTER 2023-06-16 18:12 | Emergency (ER) | payer OTHER, SELFPAY ==
--- NOTE | ~2023-06-16 | XR_ITS ---
EXAMINATION: XR chest 2V Exam Date/Time: 06/16/2023 19:03 ABORIGINAL CEREMONIAL CELEBRANT HISTORY: SOB Comparison: 03/30/2023. RESULT: Lines, tubes, and devices: Cholecystectomy clips. Lungs and pleura: Slightly low volumes in the lateral view with crowding. No focal consolidation, pl eural effusion, or pneumothorax. Cardiomediastinal silhouette: Stable. Other: No acute osseous or upper abdominal finding. IMPRESSION: No acute cardiopulmonary process. Reviewed, dictated and finalized at location K. IGINAL CEREMONIAL CELEBRANT
--- NOTE | 2023-06-16 18:20 | ECG_ITS ---
Measurements Intervals [place] Rate: 82 P: 33 IN: 155 QRS: -7 QRSD: 92 T: 29 QT: 387 QTc: 453 Interpretive Statements SINUS RHYTHM MINIMAL VOLTAGE CRITERIA FOR LVH, CONSIDER NORMAL VARIANT [MEETS CRITERIA IN ONE OF: R(aVL), S(V1), R(V5), R(V5/V6)+S(V1)] NONSPECIFIC ST & T-WAVE ABNORMALITY COMPARED TO ECG 03/30/2023 19:14:18 NO SIGNIFICANT CHANGES Electronically Signed On 06-17-2023 15:05:25 CIS COORDINATOR by Richie Tejada M.D.
[2023-06-16 18:21] VITALS: BP 119/75; PULSE 87; RESP 20; TEMP 36.7; O2SAT 96
[2023-06-16 18:51] LABS: Basophils Percent Auto 0.5 % (0.2-1.2); Eosinophils Absolute Auto 0.1 K/mm3 (0-0.3); Hematocrit 33.8 % (37.0-47.0); Hemoglobin 9.9 g/dL (12.0-15.0); Immature Granulocyte Absolute 0.03 K/mm3 (0.00-0.031); Immature Granulocyte Percent A 0.5 % (0-0.5); Immature Platelet Fraction Pct 5.8 % (0.9-11.2); Lymphocytes Absolute Auto 0.56 K/mm3 (0.9-3.2); Lymphocytes Percent Auto 8.7 % (18.3-44.2); Mean Corpuscular HGB Conc 29.3 g/dl (32-36); Mean Corpuscular Hemoglobin 24.4 pg (26-34); Mean Corpuscular Volume 83.3 fl (80-100); Mean Platelet Volume 11.1 fl (7.4-10.4); Monocytes Absolute Auto 0.4 K/mm3 (0.1-0.6); Monocytes Percent Auto 5.5 % (2.6-8.5); Neutrophils Absolute Auto 5.3 K/mm3 (1.3-6.7); Neutrophils Percent Auto 82.8 % (45.5-73.1); Platelet Count Result 177 k/mm3 (150-375); Red Blood Count 4.06 M/mm3 (4.2-5.4); Red Cell Distribution Width 17.9 % (11.5-14.5); White Blood Count 6.4 K/mm3 (4.5-10.0)
[2023-06-16 19:04] LABS: Alanine Aminotransferase 16 U/L (6-35); Albumin Level 3.7 g/dL (3.5-5.1); Alkaline Phosphatase 87 U/L (38-126); Anion Gap 7 mmol/L (8-16); Aspartate Amino Transferase 33 U/L (14-36); Bilirubin,Total 0.6 mg/dL (0.2-1.3); Blood Urea Nitrogen 9 mg/dL (7-17); Calcium 8.4 mg/dL (8.4-10.2); Carbon Dioxide 24 mmol/L (22-30); Chloride 104 mmol/L (98-107); Estimated CRCL calculation 66 ml/min; Estimated Glomerular Filt Rate > 60; Glucose 100 mg/dL (65-110); Potassium 3.5 mmol/L (3.4-5.0); Sodium 135 mmol/L (137-145)
[2023-06-16 19:11] LABS: Anisocytosis 1+ (NORMAL); Hypochromasia 1+ (NORMAL); Ovalocytes 1+ (NORMAL); Platelet Estimate Adequate (Adequate); Schistocytes None Seen (NORMAL)
[2023-06-16 19:30] LABS: Influenza A QL RT-PCR Negative (Negative); Influenza B QL RT-PCR Negative (Negative); RSV RNA, RT-PCR Negative (Negative); SARS-CoV-2 RNA PCR Positive (Negative)
[2023-06-16 20:38] VITALS: BP 114/59; PULSE 83; RESP 17; O2SAT 95
--- NOTE | 2023-06-16 21:42 | ED.SOB ---
HPI - SOB/Dyspnea General Chief Complaint: Shortness of Breath/Dyspnea Stated Complaint: sob Time Seen by Provider: 06/16/23 20:22 History of Present Illness HPI Narrative: Patient is a 62-year-old female with a history of hypertension, hyperlipidemia presenting with URI symptoms. Patient states that since yesterday she has had body aches and a cough. States the cough is sometimes painful. States that she has also felt intermittently short of breath. Denies leg swelling, lightheadedness, palpitations. No vomiting or diarrhea. Related Data Home Medications Medication Instructions Recorded Confirmed omeprazole 20 mg capsule,delayed 20 mg PO DAILY 12/11/19 04/14/23 release pregabalin 150 mg capsule 150 mg PO BID 02/08/20 04/14/23 trazodone 100 mg tablet 100 mg PO HS 02/08/20 04/14/23 acetaminophen 300 mg-codeine 30 mg 1 tablet PO Q6H PRN Pain 02/28/20 04/14/23 tablet lidocaine HCl 2 % mucosal solution 1 applic mucous membrane TID PRN 02/28/20 04/14/23 (Lidocaine Viscous) Pain fluoxetine 20 mg capsule 20 mg PO QAM 04/14/23 04/14/23 fluoxetine 40 mg capsule 40 mg PO QPM 04/14/23 04/14/23 Allergies Allergy/AdvReac Type Severity Reaction Status Date / Time hydrocodone Allergy Severe HALLUCINATI Verified 06/16/23 20:40 ONS morphine Allergy Severe ANAPHYLAXIS Verified 06/16/23 20:40 adhesive tape Allergy Intermediate Rash Verified 06/16/23 20:40 latex Allergy Intermediate Itching Verified 06/16/23 20:40 ketorolac Allergy Unknown Anxiety Verified 06/16/23 20:40 Sulfa (Sulfonamide Allergy Unknown shortness Verified 06/16/23 20:40 Antibiotics) of breath and itching Review of Systems Review of Systems: All systems reviewed & are unremarkable except as noted in HPI and below PMFSH Past Medical History Medical History Fibromyalgia History of hypertension History of sleep apnea Surgical History Surgical History History of cholecystectomy History of hysterectomy History of inguinal hernia repair Family History Family History Father Hypertension Cerebrovascular accident Family history of diabetes mellitus in first degree relative Family history of heart disease in male family member before age 55 Family history of type 1 diabetes mellitus Mother Hypertension Family history of malignant neoplasm of breast in first degree relative Other Asthma Depression Family history of allergic disorder Family history of arthritis Social History Social History Smoking status: Never smoker Second hand tobacco smoke exposure: No Alcohol intake: never Gender identity (if verbalized by the patient): Female Exam Narrative: GENERAL: Nontoxic, in no acute distress, pleasant cooperative HEAD: Normocephalic, atraumatic. EYES: PERRLA and EOMI. ENT: grossly unremarkable NECK: Supple. CHEST: Clear to auscultation. No respiratory distress. HEART: Regular rate and rhythm ABDOMEN: Soft, nontender, nondistended EXTREMITIES: Normal range of motion. No edema. SKIN: Warm, dry, no rash. NEURO: No focal deficits. Alert and oriented x3. PSYCH: Normal mood and affect. Course Vital Signs Vital signs: Vital Signs Temperature 98.1 F 06/16/23 18:21 Pulse Rate 87 06/16/23 18:21 Respiratory Rate 20 06/16/23 18:21 Blood Pressure 119/75 06/16/23 18:21 Pulse Oximetry 96 06/16/23 18:21 Oxygen Delivery Room Air 06/16/23 18:21 Temperature 98.1 F 06/16/23 18:21 Pulse Rate 76 06/16/23 22:21 Respiratory Rate 17 06/16/23 20:38 Blood Pressure 110/50 L 06/16/23 22:21 Pulse Oximetry 95 06/16/23 22:21 Oxygen Delivery Room Air 06/16/23 18:21 MDM - SOB/Dyspnea MDM Narrative Medical decision making narrative: 62-year-old
[2023-06-16] MEDS: SODIUM CHLORIDE 0.9% IV 1,000 ML 999 ML IV CONT (22:11)
[2023-06-16 22:21] VITALS: BP 110/50; PULSE 76; O2SAT 95
== END 2023-06-16 23:26 | disposition home or self-care (01) ==
PROVIDERS: Emergency Provider Emergency Medicine; PCP Nurse Practitioner Family
DX: U07.1 COVID-19 (principal); M79.7 Fibromyalgia; I10 Essential (primary) hypertension; G47.30 Sleep apnea, unspecified
CPT/HCPCS: 36415; 71046; 80053; 85025; 85055; 87637; 93005; 96360; 99284; J7030

== ENCOUNTER 2023-09-02 11:24 | Outpatient (CLI) | payer OTHER, SELFPAY ==
--- NOTE | ~2023-09-02 | XR_ITS ---
AP and lateral views of the left hip Clinical history: Pain Findings: No acute fracture or dislocation is seen. Osseous alignment is anatomic. Bilateral hip and SI joint spaces are preserved. Soft tissues are unremarkable. Impression: No significant abnormality is seen. Reviewed, dictated and finalized at location . Impression: No significant abnormality is seen.
--- NOTE | ~2023-09-02 | XR_ITS ---
Left Knee Technique: AP and lateral views were obtained. Clinical History: Pain Findings: No fracture or dislocation is seen. Left knee arthroplasty in place, without evidence of bradford rdware complication.. Soft tissues are unremarkable. No joint effusion is seen. Impression: No acute abnormality. Left knee arthroplasty in place. Reviewed, dictated and finalized at location . Impression: No acute abnormality. Left knee arthroplasty in place.
--- NOTE | ~2023-09-02 | XR_ITS ---
Right Knee Technique: AP and lateral views were obtained. Clinical History: Pain Findings: No fracture or dislocation is seen. Osseous alignment is anatomic. There is mild to moderat e tricompartmental degenerative spurring. Soft tissues are unremarkable. No joint effusion is seen. Impression: Mild to moderate tricompartmental degenerative change. Reviewed, dictated and finalized at location . Impression: Mild to moderate tricompartmental degenerative change.
[2023-09-02 20:11] LABS: Alanine Aminotransferase 17 U/L (6-35); Alkaline Phosphatase 91 U/L (38-126); Anion Gap 5 mmol/L (4-12); Aspartate Amino Transferase 57 U/L (14-36); Bilirubin,Total 0.7 mg/dL (0.2-1.3); Blood Urea Nitrogen 11 mg/dL (7-17); Calcium 9.1 mg/dL (8.4-10.2); Carbon Dioxide 33 mmol/L (22-30); Chloride 105 mmol/L (98-107); Cholesterol 236 mg/dL (0-200); Estimated Glomerular Filt Rate > 60; Glucose 80 mg/dL (65-110); HDL Direct 46 mg/dL; Potassium 3.4 mmol/L (3.4-5.0); Sodium 143 mmol/L (137-145); Triglycerides 149 mg/dL (<150)
[2023-09-02 20:13] LABS: Iron 39 ug/dL (37-170)
[2023-09-02 20:17] LABS: Basophils Absolute Auto 0.1 K/mm3 (0.0-0.1); Basophils Percent Auto 0.8 % (0.2-1.2); Eosinophils Absolute Auto 0.4 K/mm3 (0-0.3); Eosinophils Percent Auto 5.5 % (0-4.4); Hematocrit 33.6 % (37.0-47.0); Hemoglobin 9.9 g/dL (12.0-15.0); Immature Granulocyte Absolute 0.02 K/mm3 (0.00-0.031); Immature Granulocyte Percent A 0.3 % (0-0.5); Lymphocytes Percent Auto 18.9 % (18.3-44.2); Mean Corpuscular HGB Conc 29.5 g/dl (32-36); Mean Corpuscular Hemoglobin 24.4 pg (26-34); Mean Corpuscular Volume 82.8 fl (80-100); Mean Platelet Volume 9.8 fl (7.4-10.4); Monocytes Absolute Auto 0.4 K/mm3 (0.1-0.6); Monocytes Percent Auto 6.3 % (2.6-8.5); Neutrophils Absolute Auto 4.3 K/mm3 (1.3-6.7); Neutrophils Percent Auto 68.2 % (45.5-73.1); Platelet Count Result 345 k/mm3 (150-375); Red Blood Count 4.06 M/mm3 (4.2-5.4); White Blood Count 6.4 K/mm3 (4.5-10.0)
[2023-09-02 20:24] LABS: LDL Cholesterol Direct 145 mg/dL
[2023-09-02 20:43] LABS: Anisocytosis 1+; Hypochromasia 1+; Ovalocytes 1+; Platelet Estimate Adequate (Adequate); Schistocytes None Seen
[2023-09-02 21:00] LABS: Ferritin 7.42 ng/mL (11.1-264); Vitamin D 25 Hydroxy 16.7 ng/mL
[2023-09-04 18:38] LABS: Red Blood Cell Folate 640 ng/mL RBC (>280)
== END 2023-09-02 11:25 | disposition home or self-care (01) ==
LOC: ANHASCIMG 11:35 → ANHBWCIMG 11:37
PROVIDERS: PCP Nurse Practitioner Adult Health; Visit Provider Nurse Practitioner Adult Health
DX: D64.9 Anemia, unspecified (principal); E55.9 Vitamin D deficiency, unspecified; Z13.9 Encounter for screening, unspecified; M25.562 Pain in left knee; M25.551 Pain in right hip; M25.552 Pain in left hip; M17.11 Unilateral primary osteoarthritis, right knee
CPT/HCPCS: 36415; 73502; 73560; 80053; 80061; 82306; 82607; 82728; 82747; 83540; 84443; 85025

== ENCOUNTER 2023-10-07 15:04 | Outpatient (CLI) | payer OTHER, SELFPAY ==
--- NOTE | ~2023-10-07 | XR_ITS ---
Cervical Spine: AP, lateral, open-mouth views Clinical History: Pain Findings: The normal lordotic curve is maintained. The vertebral bodies and posterior elements appea r intact. There is mild degenerative change at C4-C5 and C5-C6. There is mild facet arthropathy and c ervical spine. Pre-vertebral soft tissues are unremarkable. Impression: Mild degenerative spondylosis, as above. Reviewed, dictated and finalized at location . Impression: Mild degenerative spondylosis, as above.
--- NOTE | ~2023-10-07 | XR_ITS ---
Lumbosacral Spine: AP and lateral views Clinical History: Pain Findings: The normal lordotic curve is maintained. No fracture seen. There is 8mm anterolisthesis of L4 over L5. There is mild degenerative disc change at L4-L5 and L5-S1. There is severe facet arthropa thy at L4-L5 and L5-S1. There is mild to moderate facet arthropathy in the remainder of the lumbar sp ine. The sacroiliac joints are normally outlined. Impression: Severe degenerative spondylosis at L4-L5 and L5-S1, with associated 8 mm anterolisthesis of L4 over L 5. Mild degenerative spondylosis of the upper lumbar spine. Reviewed, dictated and finalized at location . Impression: Severe degenerative spondylosis at L4-L5 and L5-S1, with associated 8 mm cresencio listhesis of L4 over L5. Mild degenerative spondylosis of the upper lumbar spine.
[2023-10-07 19:25] LABS: Hematocrit 36.4 % (37.0-47.0); Hemoglobin 10.6 g/dL (12.0-15.0); Mean Corpuscular HGB Conc 29.1 g/dl (32-36); Mean Corpuscular Hemoglobin 23.3 pg (26-34); Mean Platelet Volume 10.6 fl (7.4-10.4); Platelet Count Result 331 k/mm3 (150-375); Red Blood Count 4.55 M/mm3 (4.2-5.4); Red Cell Distribution Width 17.5 % (11.5-14.5); White Blood Count 6.1 K/mm3 (4.5-10.0)
[2023-10-07 20:09] LABS: Iron 51 ug/dL (37-170)
[2023-10-07 20:18] LABS: Percent Iron Saturation 12 % (20-50)
[2023-10-07 20:46] LABS: Ferritin 8.89 ng/mL (11.1-264)
[2023-10-07 21:36] LABS: Folic Acid 4.2 ng/mL (2.76->20)
== END 2023-10-07 15:05 | disposition home or self-care (01) ==
LOC: ANHBWCLAB 15:05
PROVIDERS: PCP Nurse Practitioner Adult Health; Visit Provider Nurse Practitioner Adult Health
DX: M47.896 Other spondylosis, lumbar region (principal); M47.897 Other spondylosis, lumbosacral region; M47.892 Other spondylosis, cervical region; D64.9 Anemia, unspecified; G89.29 Other chronic pain
CPT/HCPCS: 36415; 72040; 72100; 82607; 82728; 82746; 83540; 83550; 85027

== ENCOUNTER 2023-11-13 14:24 | Outpatient (CLI) | payer OTHER, SELFPAY ==
--- NOTE | ~2023-11-13 | MM_ITS ---
CORRECTED REPORT corrected examination description [facility] [place]23 This report was recreated on 11/16/23. Original report was EXAMINATION: MM screening mammo BI w stef HISTORY: Screening TECHNIQUE: Craniocaudal and mediolateral oblique 3-D tomosynthesis images were obtained and synthetic 2-D images were generated. CAD analysis was submitted and interpreted. COMPARISON: Comparison to multiple prior studies sequentially, with oldest reviewed study dated 01/08/2015. BREAST PARENCHYMAL COMPOSITION: Not dense: There are scattered areas of fibroglandular density. FINDINGS: There is no evidence of suspicious mass, calcification, or architectural distortion to suggest malignancy in either breast. There has been no suspicious interval change. IMPRESSION: 1. No mammographic evidence of malignancy. 2. Recommend routine screening mammography in one year. BI-RADS Category 1: Negative Reviewed, dictated and finalized at location B. MTDD
== END 2023-11-13 14:25 | disposition home or self-care (01) ==
LOC: ANHIMG 14:27
PROVIDERS: PCP Nurse Practitioner Adult Health; Visit Provider Nurse Practitioner Adult Health
DX: Z12.31 Encounter for screening mammogram for malignant neoplasm of breast (principal)
CPT/HCPCS: 77063; 77067

== ENCOUNTER 2024-04-18 09:57 | Outpatient (CLI) | payer OTHER, MEDICAID, SELFPAY ==
--- NOTE | ~2024-04-18 | XR_ITS ---
XR chest 2V Ordering provider: Shanel Ventura APRN History: 63 years Female with . R05.9 - Cough, unspecified . Comparison: June 16, 2023 FINDINGS: MEDIASTINUM: The cardiac silhouette is not enlarged. LUNGS: No infiltrates, effusions or pneumothorax. OTHER: No free air under the diaphragm. Degenerative changes of the spine. IMPRESSION: No acute cardiopulmonary pathology. Reviewed, dictated and finalized at location A. BOILER
== END 2024-04-18 09:58 | disposition home or self-care (01) ==
PROVIDERS: PCP Nurse Practitioner Adult Health; Visit Provider Nurse Practitioner Adult Health
DX: R05.9 Cough, unspecified (principal)
CPT/HCPCS: 71046

== ENCOUNTER 2025-02-13 19:59 | Observation (INO) | payer OTHER, MEDICAID, SELFPAY ==
[2025-02-13] VITALS (14 sets, daily range): BP systolic 100–156; BP diastolic 76–86; PULSE 68–83; RESP 13–24; TEMP 36.6; O2SAT 90–100; BMI 32.1
--- NOTE | ~2025-02-13 | XR_ITS ---
EXAMINATION: XR femur RT min 2V, 02/14/2025 12:50 CDT HISTORY: leg pain s/p fall COMPARISON: No comparisons available. Findings: No acute fracture or malalignment. Moderate to severe degenerative changes Soft tissues unremarkable. Impression: No acute fracture or malalignment. Reviewed, dictated and finalized at location P. Impression: No acute fracture or malalignment.
--- NOTE | ~2025-02-13 | CT_ITS ---
EXAMINATION: CT brain wo con DATE: 02/13/2025 21:01 INDICATION: Fall TECHNIQUE: Computed tomography (CT) of the head was performed without intravenous contrast. Sagittal and coronal reconstructions were performed. The mA was adjusted according to patient size. Iterative reconstruction technique was employed. The dose-length product was 681.00 mGy-cm. COMPARISON: head CT dated 09/17/2022 FINDINGS: No fracture. No acute intracranial hemorrhage, acute infarction or abnormal extra axial fluid collection. Ventricles are normal and symmetric. No mass/mass effect. The orbits, paranasal sinuses and mastoid air cells are normal. Developmentally unfused posterior ring of C1. IMPRESSION: 1. No fracture or acute intracranial process. Reviewed, dictated and finalized at location A.
--- NOTE | ~2025-02-13 | XR_ITS ---
EXAMINATION: XR hip RT 2V w AP pelvis DATE: 02/13/2025 21:18 INDICATION: Right hip injury post fall TECHNIQUE: Anteroposterior view of the pelvis and anteroposterior and cross- table lateral views of the right hip were obtained. COMPARISON: 11/14/2016 FINDINGS: Minimally displaced fractures of the right superior and inferior pubic rami also involving the right pubic body. Alignment is otherwise normal. No other fractures identified. Specifically no evident fracture of the proximal right femur or right acetabulum. Bilateral hip and sacroiliac joint spaces appear relatively preserved. Moderate to severe lower lumbar spondylosis with severe bilateral lower lumbar facet osteoarthritis. IMPRESSION: 1. Minimally displaced fractures of the right superior and inferior pubic rami and right pubic body. Reviewed, dictated and finalized at location A.
--- NOTE | ~2025-02-13 | XR_ITS ---
EXAMINATION: XR chest 1V DATE: 02/13/2025 21:18 INDICATION: Fall TECHNIQUE: frontal view of the chest was obtained. COMPARISON: Chest radiograph dated 04/28/2024 FINDINGS: The lungs remain clear with no focal airspace opacities, pulmonary edema, pleural effusion or pneumothorax. The cardiomediastinal silhouette is normal. Visualized bones and soft tissues are unremarkable. IMPRESSION: 1. No acute cardiopulmonary disease. Reviewed, dictated and finalized at location A.
--- NOTE | 2025-02-13 20:20 | ECG_ITS ---
Test Date: 2025-02-13 21:58:08 Measurements Intervals [place] Rate: 66 P: 55 CO: 151 QRS: 31 QRSD: 94 T: 26 QT: 376 QTc: 396 Interpretive Statements SINUS RHYTHM NONSPECIFIC ST & T-WAVE ABNORMALITY- INF/LAT LEADS BASELINE ARTIFACT- I, II, III, AVR, AVL, AVF BORDERLINE ECG No previous ECG available for comparison Electronically Signed On 02-14-2025 06:29:57 CDT by Corey Olivia D.O.
[2025-02-13] MEDS: ONDANSETRON INJ 4 MG/2 ML VIAL IV PUSH (20:32)
[2025-02-13] MEDS: HYDROmorphone HCL INJ (*CRX) 1 MG/ML SYR 0.5 MG IV PUSH ×2 (20:32→23:38)
[2025-02-13 20:33] LABS: Hematocrit 29.0 % (37.0-47.0); Hemoglobin 8.8 g/dL (12.0-15.0); Immature Granulocyte Percent A 1.2 % (0-0.5); Lymphocytes Absolute Auto 1.74 K/mm3 (0.9-3.2); Mean Corpuscular HGB Conc 30.3 g/dl (32-36); Mean Corpuscular Hemoglobin 21.7 pg (26-34); Mean Corpuscular Volume 71.4 fl (80-100); Nucleated Red Blood Cells Absolute Auto 0.000 K/mm3 (0.0-0.012); Nucleated Red Blood Cells Perc 0.0 % (0.0-0.2); Platelet Count Result 274 k/mm3 (150-375); Red Blood Count 4.06 M/mm3 (4.2-5.4); White Blood Count 9.8 K/mm3 (4.5-10.0)
--- OUTSIDE RECORDS SUMMARY | 2025-02-13 20:33 | XMS_ITS | Encounter Summary ---
Author Organization [facility] Address [facility] [place] [address] Care Team Providers Care Dermatology Teacher Name Role Phone Shanel Ventura Primary Care Provider + Susana Dixon MD Primary Care Provider + Encounter Details Date Type Department Care Team (Late st Contact Info) Description 11/01/2019 Lab Requisition [facility] [address] [place] [id number] Social History Tobacco Use Types Packs/Day Years Used Date Smoking Tobacco: Never Smokeless Tobacco: Never Alcohol Use Standard Drinks/Week Comments No 0 (1 standard drink = 0.6 oz pur e alcohol) Comments No Sex and Gender Information Value Date Recorded Sex Assigned at Not on file Legal Sex Female 6:41 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 Gender Identity Not on file Sexual Orientation Not on file documented as of this encounter Plan of Treatment Not on file documented as of this encounter Procedures Procedure Name Priority Date/Time Associated Diagnosis Comments SARS-COV-2 (COVID-19) IN HOUSE Routine 10/31/2019 1:02 PM CDT documented in this encounter Results * SARS-COV-2 (COVID-19) IN HOUSE (10/31/2019 1:02 PM CDT) COVID-19 PCR Not detected Not detected, Invalid 11/01/2019 8:52 PM CDT [facility] Microbiology SPECIMEN FROM NASOPHARYNGEAL STRUCTURE / Unknown Collection / Unknown 10/31/2019 1:02 PM CDT 11/01/2019 11:59 AM CDT Narrative [facility] - 11/01/2019 8:52 PM CDT This Real Time RT-PCR assay was developed and its performance characteristics determined by [facility]. This test has been authorized by the Food and Drug administration (FDA)under an Emergency Use Authorization (EUA). This test has been validated in accordance with the FDA's guidance document Policy for Diagnostic Testing in Laboratories Certified to perform High Complexity Testing under CLIA prior to Emergency Use Authorization for Coronavirus Disease-2019 during the Public Health Emergency issued on July 09, 2019. FDA independent review of this validation is pending. This test is only authorized for the duration of time the declaration that circumstances exist justifying the authorization of emergency use of in vitro diagnostic tests for detection of SARS-CoV-2 virus and/or diagnosis of COVID-19 infection under section 564(b)(1) of the Act, 21 U.S.C 360bbb-3 (b)(1), unless the authorization is terminated or revoked sooner. us LAB - MICROBIOLOGY ORDERABLES Fi nal Result [facility] [address] [place], [place] [address], [facility] [phone] documented in this encounter Visit Diagnoses Not on filedocumented in this encounter Additional Health Concerns Infection Onset Date Last Indicated Resolved Time COVID-19 Under Investigation 10/31/2019 10/31/2019 11/01/2019 8:52 PM CDT documented as of this encounter Care Teams Dermatology Teacher Relationship Specialty Start Date End Date Shanel Ventura APRN-ROWENA [address] [id number] PCP - General Nurse Practitioner 04/27/19 01/21/22 Susana Dixon MD [address] [place] [address] PCP - General 01/22/22 documented as of this encounter
--- OUTSIDE RECORDS SUMMARY | 2025-02-13 20:33 | XMS_ITS | Clinical Summary ---
Author Organization [facility] Address [address] [facility] [place] [address] Care Team Providers Care Sketch Liner Name Role Phone Susana Dixon MD Primary Care Provider + Source Comments [facility],non-owned Affiliates and Associated Physician Practices is amultiple site organization consisting of ambulatory clinics and hospital sitesin [place], [place], [place] and [place]. This disclosure is being madepursuant to the Care Everywhere program and may not contain all information available regarding this patient. Last updated 18.[facility] Allergies Active Allergy Reactions Criticality Noted Date Comments Sulfa Drugs Urticaria Medium 02/06/2018 Hydrocodone-Acetaminophen Shortness of Breath High 0 02/06/2018 Medications * Be aware that medications may not be up to date on this document. Alwaysverify current medications with the patient. HYDROcodone-ac etaminophen (NORCO) 5-325 MG tablet Take 1-2 tablets by mouth every 4 hours as needed for Pain Do not exceed 3 grams of acetaminophen (TYLENOL) daily. 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 Gender Identity Not on file Sexual Orientation Not on file Last Filed Vital Signs Vital Sign Reading Time Taken Comments Blood Pressure 125/66 02/06/2018 4:30 PM CDT Pulse 81 02/06/2018 4:38 PM CDT Temperature 36.4 C (97.5 F) 02/06/2018 5:41 AM CDT Respiratory Rate 18 02/06/2018 4:38 PM CDT Oxygen Saturation 100% 02/06/2018 4:38 PM CDT Inhaled Oxygen Concentration - - Weight 96.2 kg (212 lb) 02/06/2018 5:41 AM CDT Height 170.2 cm (5' 7) 02/06/2018 5:41 AM CDT Body Mass Index 33.2 02/06/2018 5:41 AM CDT Plan of Treatment Health Maintenance Due Date Last Done Comments COLOGUARD (AGES 45-75) - COL ON CA SCREENING 1960 COLON MONITORING 1960 COLONOSCOPY - COLON CA SCREENING 1960 CT COLONOGRAPHY - COLON CA SCREENING 1960 Colorectal Cancer Screening 1960 FIT - COLON CA SCREENING 1960 FLEX SIG - COLON CA SCREENING 1960 LIPID TESTING 1960 MAMMOGRAM 1960 HIV SCREENING 12/22/1975 HEPATITIS C SCREENING 12/17/1978 DTAP/TDAP/TD VACCINES (1 - Tdap) 12/22/1979 PAP SMEAR 1981 PNEUMOCOCCAL VACCINE 50+ (1 of 1 - PCV) 2010 ZOSTER VACCINE (1 of 2) 2010 DEPRESSION SCREENING 05/11/2024 COVID-19 VACCINE (2 - 2024-2 6 season) 2025 08/20/2020 INFLUENZA VACCINE (#1) 2025 , 03/14/2020 Respiratory Syncytial Virus (RSV) Vaccine Pt: or over 60 yrs (1 - 1-dose 75+ series) 12/22/2035 HEPATITIS B VACCINE Aged Out No longe r eligible based on patient's age to complete this topic HIB VACCINE Aged Out No longer eligi ble based on patient's age to complete this topic HPV VACCINE Aged Out No longer eligi ble based on patient's age to complete this topic MENINGOCOCCAL (Group B) VACCINE SHARED DECISION-MAKING Aged Out No longer eligible based on patient's age to complete this topic MENINGOCOCCAL GROUPS A/C/Y/W VACCINE Aged Out No longer eligible b ased on patient's age to complete this topic Insurance [facility] MEDICAID Care Teams Sketch Liner Relationship Specialty Start Date End Date Susana Dixon MD [address] [place] [address] PCP - General 01/22/22
--- OUTSIDE RECORDS SUMMARY | 2025-02-13 20:33 | XMS_ITS | Encounter Summary ---
Author Organization [facility] Address [address] [place] [address] Phone Care Team Providers Care Circular Tank Cooper Name Role Phone Gabrielle Thompson MD Primary Care Provider [phone] Tasha Blakely MD Primary Care Pr ovider Shanel Ventura NP Primary Care Provider [phone] Encounter Details Date Type Department Care Team (Latest Contact Info) Description 02/08/2018 Orders Only [facility] Scanning, Provider Social History Tobacco Use Types Packs/Day Years Used Date Smoking Tobacco: Never Smokeless Tobacco: Never Comments Unknown Sex and Gender Information Value Date Recorded Sex Assigned at Not on file Legal Sex Female 9:47 AM 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 AND 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 Gender Identity Female 04/30/2022 8:02 PM AERIAL PLANTING AND 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 Sexual Orientation Straight 04/30/2022 8: 02 PM AERIAL PLANTING AND 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 documented as of this encounter Plan of Treatment Not on file documented as of this encounter Procedures Procedure Name Priority Date/Time Associated Diagnosis Comments CARDIOLOGY DOCUMENT SCAN 02/08/2018 documented in this encounter Results * SCAN - CARDIOLOGY (02/08/2018) Anatomical Region Laterality Modality Other us Provider Scanning [facility] PROCEDURES Final Result documented in this encounter Visit Diagnoses Not on filedocumented in this encounter Care Teams Circular Tank Cooper Relationship Specialty [place] [address] [place] [address] PCP - General 02/08/18 08/15/18 Tasha Blakely MD [address] [address] PCP - General Internal Medicine 08/16/18 02/29/20 Shanel Ventura NP [address] [place] [address] PCP - General Nurse Practitioner 03/01/20 documented as of this encounter
--- OUTSIDE RECORDS SUMMARY | 2025-02-13 20:33 | XMS_ITS | Clinical Summary ---
Author Organization [facility] Address [address] [place] [address] Phone Care Team Providers Care Molding Fitter Name Role Phone Beena Owen MD Primary Care Provider Allergies Active Allergy Reactions Criticality Noted Date Comments Cayenne Unknown 11/10/2016 Cefdinir Rash Medium 03/25/2018 Blisters in mouth Codeine Anaphylaxis High 11/10/2016 Hydrocodone-Acetaminophen Anaphylaxis,Sh ortnes s of Breath/Wheezing High 11/10/2016 Currently taking and no allergies Morphine Anaphylaxis High 12/31/2017 Makes HR drop Prochlorperazine Rash Medium 11/03/2023 Sulfa (Sulfonamide Antibiotics) Hives High 02/06/2018 Medications ferrous sulfate 325 mg (65 mg iron) tablet Take 1 Tablet by mouth daily. 4 Active nystatin (MYCOSTATIN) 100,000 unit/mL suspension TAKE 5 ML BY MOUTH 4 TIMES A DAY 2 Active ofloxacin (OCUFLOX) 0.3 % solution PLEASE SEE ATTACHED FOR DETAILED DIRECTIONS 4 Active ondansetron (ZOFRAN) 4 mg Tablet Active polymyxin B sulf-trimethop rim (POLYTRIM) 10,000 unit- 1 mg/mL solution INSTILL 1 DROP INTO AFFECTED EYE(S) BY OPHTHALMIC ROUTE EVERY 6 HOURS Active albuterol sulfate HFA 90 mcg/actuation aerosol inhaler INHALE 2 PUFFS EVERY 4 HOURS BY INHALATION ROUTE NEEDED Active TENS unit and electrodes Combo PackIndication s:Other chronic pain Use daily as needed for pain control. 1 Each 4 Active gabapentin (NEURONTIN) 600 mg tabletIndicati ons:Other chronic pain Take 1 Tablet (600 mg) by mouth 2 times daily. 180 Tablet 3 07/10/2024 7:52 PM VISUAL COMMUNICATIONS INSTRUCTOR 4 Active DULoxetine (CYMBALTA) 60 mg Capsule, Delayed Release(E.C.) Take 1 Capsule (60 mg) by mouth daily. 90 Capsule 3 07/10/2024 7:52 PM VISUAL COMMUNICATIONS INSTRUCTOR 4 Active omeprazole (PriLOSEC) 40 mg Capsule, Delayed Release(E.C.) Take 1 Capsule (40 mg) by mouth daily. 90 Capsule 1 07/10/2024 7:52 PM VISUAL COMMUNICATIONS INSTRUCTOR 4 Active ergocalciferol (Vitamin D2) 50,000 unit capsuleIndicat ions:Vitamin D deficiency TAKE 1 CAPSULE BY MOUTH EVERY WEEK (every 7 days) 12 Capsule 07/10/2024 7:52 PM VISUAL COMMUNICATIONS INSTRUCTOR 4 Active rOPINIRole (REQUIP) 4 mg Tablet Take 1 Tablet (4 mg) by mouth daily at bedtime. 90 Tablet 3 5 Active traZODone (DESYREL) 100 mg tablet Take 1 Tablet (100 mg) by mouth daily at bedtime. 90 Tablet 3 07/10/2024 7:52 PM VISUAL COMMUNICATIONS INSTRUCTOR 5 Active cyanocobalamin (VITAMIN B-12) 1,000 mcg/mL SolutionIndica tions:Vitamin B12 deficiency (non anemic) INJECT 1000 MCG SUBCUTANEOUSLY ONCE A WEEK FOR 4 WEEKS, FOLLOWED BY ONCE A MONTH FOR 4 MONTHS 8 mL 1 07/10/2024 7:52 PM VISUAL COMMUNICATIONS INSTRUCTOR 5 Active Syringe with Needle, Disp, (BD Luer-Kesha Syringe) 3 mL 25 gauge x 1 SyringeIndicat ions:Vitamin B12 deficiency (non anemic) Use as directed to administer b12 (cyaocobalamin). 8 Each 07/10/2024 7:52 PM VISUAL COMMUNICATIONS INSTRUCTOR 5 Active tiZANidine (ZANAFLEX) 4 mg Tablet Take 1 Tablet (4 mg) by mouth every 6 hours as needed for spasms 30 Tablet 1 07/10/2024 7:52 PM VISUAL COMMUNICATIONS INSTRUCTOR 5 Active Active Problems Problem Noted Date Diagnosed Date Iron deficiency anemia 10/27/2022 Sleep disorder 10/27/2022 Spinal stenosis in cervical region 09/09/2022 Family history of breast cancer 12/31/2021 Mixed anxiety and depressive disorder 02/25/2021 Vitamin D deficiency 08/27/2020 Hyperlipidemia 04/28/2019 History of laparoscopic adjustable gastric vy ng 04/25/2019 Pernicious anemia 01/04/2018 Obesity (BMI 30.0-34.9) 12/18/2017 ZULEMA (obstructive sleep apnea) 12/18/2017 GERD (gastroesophageal reflux disease) 8 BRCA1 positive 08/05/2017 Anxiety 08/05/2017 Overview (11/03/2023): Last Assessment & Plan: Needs refill. Currently controlled on the fluoxetine 60mg Last Assessment & Plan: Needs refill. Currently controlled on the fluoxetine 60mg Fatty liver disease, nonalcoholic 08/05/2017 Fibromyalgia 08/05/2017 Migraines 08/05/2017 Rheumatoid arthritis 08/05/2017 Presence of total knee joint prosthesis, left Paroxysmal atrial fibrillati on with rapid ventricular response 05/11/2017 Osteoarthritis of knee 10/24/2011 Encounters Date Type Department Care Team Description 01/24/2025 External Device Data [facility] ABSTRACTION Provider, Abstract 12/27/2024 External Device Data [facility] ABSTRACTION Provider, Abstract 12/06/2024 External Device Data [facility] ABSTRACTION Provider, Abstract 12/06/2024 External Device Data [facility] ABSTRACTION Provider, Abstract 12/06/2024 External Device Data [facility] ABSTRACTION Provider, Abstract 11/29/2024 External Device Data [facility] ABSTRACTION Provider, Abstract from Last 3 Months Immunizations Immunization Administration Dates Next Due (ADACEL/BOOSTRIX)(10 YR UP) TDAP VACCINE, 0.5ML, IM 09/07/2018 (PFIZER)(12 YR UP) COVID-19 VACCINE - EMERGENCY USE AUTHORIZATION, MRNA, [id number](PF) 30 MCG/0.3 ML IM SUSP 08/20/2020 INFLUENZA VACCINE QUADRIVALENT 6 MOS UP PF IM ,03/14/2020 Family History Medical History Relation Name Comments Depression Father Mauricio Diabetes Father [place] Heart Disease Father Mauricio High Cholesterol Father [place] Hypertension Father [place] Respiratory Disease Father [place] COPD Breast Cancer Mother Vero Osorio Osteoporosis Mother Vero Osorio Relation Name Status Comments Father Mauricio Mother Vero Osorio Social History Tobacco Use Types Packs/Day Years Used Date Smoking Tobacco: Never Smokeless Tobacco: Never Alcohol Use Standard Drinks/Week Comments Never 0 (1 standard drink = 0.6 oz pur e alcohol) Comments Unknown Sex and Gender Information Value Date Recorded Sex Assigned at Female 11/02/2023 3:08 PM CDT Legal Sex Female 11:14 PM CDT Gender Identity Female 11/02/2023 3:08 PM CDT Sexual Orientation Straight 11/02/2023 3: 08 PM CDT Last Filed Vital Signs Vital Sign Reading Time Taken Comments Blood Pressure 114/68 11/03/2023 7:37 AM CDT Pulse 74 11/03/2023 7:37 AM CDT Temperature - - Respiratory Rate - - Oxygen Saturation 97% 11/03/2023 7:37 AM CDT Inhaled Oxygen Concentration - - Weight 81.6 kg (180 lb) 03/23/2024 8:25 AM VISUAL COMMUNICATIONS INSTRUCTOR Height 167.6 cm (5' 6) 03/23/2024 8:25 AM VISUAL COMMUNICATIONS INSTRUCTOR Body Mass Index 29.05 03/23/2024 8:25 AM VISUAL COMMUNICATIONS INSTRUCTOR Plan of Treatment Health Maintenance Due Date Last Done Comments Pre-Diabetes and Diabetes Screening 1960 HPV/Cotest (21-29) 1981 CERVICAL CANCER SCREENING 1990 HPV/Cotest (30-65) 1990 PAP SMEAR 1990 FIT-DNA Q 3 years 2005 FIT/FOBT Q 1 year 2005 Flex Sig/CT Colonography Q 5 years 2005 ZOSTER VACCINE (1 of 2) 2010 RSV VACCINE (60+ or ) (1 - Risk 60-74 years 1-dose series) 2020 BREAST CANCER SCREENING 11/05/2021 11/06/19 21, 02/08/2015, 02/08/2015 COLORECTAL SCREENING 10/05/2022 10/05/2012 Colorectal Cancer Screening 10/05/2022 Preventative Visit- Commercial 05/11/2024 INFLUENZA VACCINE (#1) 2024 02/25/2021, 2019 COVID-19 Vaccine (2024- season) 01/09/202504/2021 DTAP/TDAP/TD VACCINES (2 - T d or Tdap) 09/07/2028 09/07/2018 Insurance RX [employer] (INTERNAL) [facility] [employer] RX [employer] RX Member Subscriber Plan / Payer (Ef fective 2024-Present) Name:Anayeli Carranza Relation to Subscriber:Self Name:Anayeli Carranza Subscriber ID:Not on file Payer ID:Not on file Group ID:[facility] Type:RX Commercial Address: [address] Care Teams Molding Fitter Relationship Specialty [place] [id number] [facility] [address] [place] [phone] PCP - General Family Practice 11/03/23
--- OUTSIDE RECORDS SUMMARY | 2025-02-13 20:33 | XMS_ITS | Clinical Summary ---
Author Organization [facility] [address] [facility] Address [address] [place] [address] Care Team Providers Care Pipeline Systems Operator Name Role Phone Shanel Ventura NP Primary Care Provider [phone] Allergies Active Allergy Reactions Criticality Noted Date Comments Prochlorperazine Rash Medium Sulfa (Sulfonamide Antibiotics) Other (See comments) Reaction: Throat tightness, Medications FLUoxetine (PROzac) 40 mg capsule take 1 capsule by oral route every day in the morning 0 0 6 Active docusate sodium (COLACE) 100 mg capsule take 1 capsule (100MG) by oral route every day at bedtime as needed 30 0 6 Active HYDROcodone-acetam inophen (NORCO) 5-325 mg per tabletIndications: Pain Take 1-2 tablets by mouth every 4 (four) hours as needed for pain (1 tablet for mild to moderate pain or 2 tablets for severe pain). Do not exceed 8 tablets/day. 12 tablet 8 Active aspirin 81 mg chewable tablet Take 81 mg by mouth daily 8 Active pregabalin (LYRICA) 150 mg capsule 0 Active traZODone (DESYREL) 100 mg tablet trazodone 100 mg tablet 9 Active acetaminophen-code ine (TYLENOL with CODEINE #3) 300-30 mg per tablet 0 Active cyclobenzaprine (FLEXERIL) 10 mg tablet 1 Active omeprazole (PriLOSEC) 20 mg capsule 1 Active rOPINIRole (REQUIP) 1 mg tablet 1 Active celecoxib (CeleBREX) 100 mg capsule Take 1 capsule (100 mg total) by mouth 2 (two) times a day 60 capsule 1 Active ergocalciferol (VITAMIN D) 50,000 unit capsule 2 Active nystatin 100,000 unit/mL suspension TAKE 5 ML BY MOUTH 4 TIMES DAILY 2 Active ondansetron ODT (ZOFRAN-ODT) 4 mg disintegrating tablet DISSOLVE 1 TABLET IN MOUTH EVERY 4 HOURS NEEDED 2 Active rosuvastatin (CRESTOR) 20 mg tablet 2 Active Active Problems Problem Noted Date Diagnosed Date Breast lump in female 11/05/2020 Abnormal C-reactive protein 05/16/2019 Hyperlipidemia 04/29/2019 History of laparoscopic adjustable gastric vy ng 04/26/2019 Steatosis of liver 04/26/2019 Acute cystitis without hematuria 07/04/2018 Overview (12/13/2021): Last Assessment & Plan: Suspect some of her residual symptoms 2/2 to antibiotic as should be treated. She will see how she feels after completing Mass of soft tissue 07/04/2018 Overview (12/13/2021): Last Assessment & Plan: Suspect lipoma but given tenderness and her concern will get US Pernicious anemia 01/04/2018 Obesity (BMI 30.0-34.9) 12/18/2017 ZULEMA (obstructive sleep apnea) 12/18/2017 GERD (gastroesophageal reflux disease) 8 Neck pain, chronic 08/17/2017 Anxiety 08/05/2017 Overview (12/13/2021): Last Assessment & Plan: Needs refill. Currently controlled on the fluoxetine 60mg BRCA1 positive 08/05/2017 Herniation of intervertebral disc 08/05/2017 Herpes zoster 08/05/2017 Migraines 08/05/2017 Rheumatoid arthritis 08/05/2017 Presence of total knee joint prosthesis, left Paroxysmal atrial fibrillati on with rapid ventricular response 05/11/2017 Breast cancer screening, high risk patient 06/07 Abnormal mammogram 02/07/2015 Knee pain 10/27/2011 Osteoarthritis of knee 10/24/2011 Surgical History Surgery Date Site/Laterality Comments LAPAROSCOPIC GASTRIC BANDING lap band KNEE ARTHROSCOPY Arthroscopy knee KNEE ARTHROPLASTY Knee replacement Medical History Medical History Date Comments Hx Other Medical sleep apnea; Co mments: DLN 11/09/2015 - Hx Other Medical back pain; Comm ents: DLN 11/09/2015 - Anemia Anemia; Comments : DLN 11/09/2015 - Hx Other Medical brca; Comments: DLN 11/09/2015 - Malignant neoplasm of unknow n origin (HCC) Cancer, unknown; Comments: D ANDERSON 11/09/2015 - Hx Other Medical neuropathy; Com ments: [place] 11/09/2015 - Hx Other Medical Headache, migra ine Depression Depression Hypertension Hypertension Hx Other Medical 05/01/16 trigge r finger surgery left hand; Comments: DWL 05/13/2016 - Atrial fibrillation (HCC) Sleep apnea Paroxysmal atrial fibrillation (HCC) 05/11/2017 Family History Medical History Relation Name Comments COPD Father Coronary artery disease Father Heart attack Father Heart failure Father Breast cancer Mother Cancer Other 1 Family history of Cancer, unknown; Diabetes Other 2 Family history of Diabetes mellitus; Arthritis Other 3 Family history of Arthritis; COPD Other 4 Family history of COPD; Coronary artery disease Other 5 Fami ly history of Coronary artery disease; Gout Other 6 Family history of Gout; Hypertension Other 7 Family history of Hypertension; Kidney disease Other 8 Family histor y of Renal disease; Seizures Other 9 Family history of Seizure disorder; Relation Name Status Comments Father Mother Other 1 Other 2 Other 3 Other 4 Other 5 Other 6 Other 7 Other 8 Other 9 Social History Tobacco Use Types Packs/Day Years Used Date Smoking Tobacco: Never Smokeless Tobacco: Never Alcohol Use Standard Drinks/Week Comments Not Currently 0 (1 standard drink = 0.6 oz pur e alcohol) AUDIT-C Answer Date Recorded Q1: How often do you have a drink containing alc ohol? Never 11/05/2020 Average Number of Drinks Not on file 021 Frequency of Binge Drinking Not on file 10/10 Comments Unknown Sex and Gender Information Value Date Recorded Sex Assigned at Not on file Legal Sex Female 9:47 AM MRP CONTROLLER Gender Identity Female 04/30/2022 8:02 PM MRP CONTROLLER Sexual Orientation Straight 04/30/2022 8: 02 PM MRP CONTROLLER Obstetrics History Last Filed Vital Signs Vital Sign Reading Time Taken Comments Blood Pressure 113/79 12/13/2021 11:52 AM CDT Pulse 60 12/13/2021 11:52 AM CDT Temperature 2.8 C (37 F) 02/08/2018 9:58 PM CDT Respiratory Rate 20 02/08/2018 9:58 PM CDT Oxygen Saturation 95% 03/01/2020 2:34 PM CDT Inhaled Oxygen Concentration - - Weight 93.8 kg (206 lb 12.8 oz) 022 11:52 AM CDT Height 167.6 cm (5' 6) 12/13/2021 11:5 2 AM CDT Body Mass Index 33.38 12/13/2021 11:52 AM CDT Plan of Treatment Health Maintenance Due Date Last Done Comments Cervical Cancer Screening 1960 Colon Cancer Screening-Colonoscopy 1960 Depression Screening 1960 Hepatitis B Screening 1978 Regular Well Visit/Exam 18-64 1978 Pneumococcal vaccine <65 (1 of 2 - PCV) 12/22/1979 Zoster Vaccine (1 of 2) 2010 Breast Cancer Screening-Mammogram 11/05/2021 021, 02/08/2015 Covid-19 Vaccine ( season) 2025 04/29/2021, 09/20/2020, 08/20/2020 Influenza Vaccine (#1) 2025 02/25/2021, 2019 DTaP/Tdap/Td Vaccine (2 - Td or Tdap) 09/07/2028 Hepatitis C Screening Completed 12/08/2015 Procedures Procedure Name Priority Date/Time Associated Diagnosis Comments DIAGNOSTIC MAMMOGRAM BILATERAL W PANCHO Schedule Routine, Read Routine (OP Routine) 11/05/2020 3:21 PM CDT Breast lump in female SERUM HEPATITIS PANEL Routine 12/08/2015 3:27 PM CDT from Last 3 Months or Most Recently Relevant to Health Maintenance Results * Diagnostic Mammogram Bilateral W Pancho (11/05/2020 3:21 PM CDT) Anatomical Region Laterality Modality Breast Bilateral Mammography 11/05/2020 4:03 PM CDT Impressions 11/05/2020 4:03 PM CDT Mild diffuse breast edema and associated skin thickening in the area of clinical concern. No underlying suspicious cystic or solid masses. OVERALL FINAL ASSESSMENT: BI-RADS Category 2: Benign. Continued clinical follow-up is recommended. Annual breast MRI in conjunction with mammography is recommended for this high risk BRCA2 positive patient. Electronically signed by: Carrie Acosta M.D. Narrative 11/05/2020 4:03 PM CDT EXAMINATION: BILATERAL DIGITAL DIAGNOSTIC MAMMOGRAM INCLUDING CAD AND BILATERAL DIGITAL BREAST TOMOSYNTHESIS US BREAST LEFT LIMITED HISTORY: 59-year-old female with left breast redness. Patient reports history of BRCA2 positive status. COMPARISON: Multiple prior examinations dating back to 2014 TECHNIQUE: Full field digital mammographic views of BOTH breasts were performed, including computer aided detection (CAD) and BILATERAL digital breast tomosynthesis (DBT). Targeted left breast ultrasound was performed by a trained candy dipper hand. BREAST PARENCHYMAL COMPOSITION: There are scattered areas of fibroglandular density. MAMMOGRAM FINDINGS: There is no mass, calcification or architectural distortion suggestive of malignancy within EITHER breast. There is no significant interval change from prior exams. ULTRASOUND FINDINGS: No suspicious cystic or solid mass visualized. There is mild diffuse breast edema and mild focal skin thickening measuring up to 0.4 cm in the area of clinical concern. Procedure Note Carrie Acosta MD - 11/05/2020 EXAMINATION: BILATERAL DIGITAL DIAGNOSTIC MAMMOGRAM INCLUDING CAD AND BILATERAL DIGITAL BREAST TOMOSYNTHESIS US BREAST LEFT LIMITED HISTORY: 59-year-old female with left breast redness. Patient reports history of BRCA2 positive status. COMPARISON: Multiple prior examinations dating back to 2014 TECHNIQUE: Full field digital mammographic views of BOTH breasts were performed, including computer aided detection (CAD) and BILATERAL digital breast tomosynthesis (DBT). Targeted left breast ultrasound was performed by a trained candy dipper hand. BREAST PARENCHYMAL COMPOSITION: There are scattered areas of fibroglandular density. MAMMOGRAM FINDINGS: There is no mass, calcification or architectural distortion suggestive of malignancy within EITHER breast. There is no significant interval change from prior exams. ULTRASOUND FINDINGS: No suspicious cystic or solid mass visualized. There is mild diffuse breast edema and mild focal skin thickening measuring up to 0.4 cm in the area of clinical concern. IMPRESSION: Mild diffuse breast edema and associated skin thickening in the area of clinical concern. No underlying suspicious cystic or solid masses. OVERALL FINAL ASSESSMENT: BI-RADS Category 2: Benign. Continued clinical follow-up is recommended. Annual breast MRI in conjunction with mammography is recommended for this high risk BRCA2 positive patient. Electronically signed by: Carrie Acosta M.D. us Carlota Morris [employer] IMG MAMMO PROCEDURES Final R esult * Serum Hepatitis panel (12/08/2015 3:27 PM CDT) HAV ab, IgM Negative Negative CDR HIST ORICAL RESULTS HBV core ab, IgM Negative Negative CDR HISTORICAL RESULTS HBV surface ag Negative Negative CDR H ISTORICAL RESULTS Comment:Test performed at [facility], [address] [place] [address], [place]., [address] HCV ab Negative Negative CDR HISTOR ICAL RESULTS Serum 12/08/2015 3:27 PM CDT us Traci Crabtree MD LAB BLOOD ORDERABLES Final Resul t CDR HISTORICAL RESULTS from Last 3 Months or Most Recently Relevant to Health Maintenance Insurance [facility] [id number] [place] [address] Care Teams Pipeline Systems Operator Relationship Specialty Start Date End Date Shanel Ventura NP [facility] [place] [address] PCP - General Nurse Practitioner 03/01/20
--- OUTSIDE RECORDS SUMMARY | 2025-02-13 20:34 | XMS_ITS | Clinical Summary ---
Author Organization [facility] Address [address], [address] [address] Phone Care Team Providers Care Microcomputer Support Specialist Name Role Phone Bridgerv[employer]y Shanel Louise ALMONTE Primary Care Provider [phone] Social History Tobacco Use Types Packs/Day Years Used Date Smoking Tobacco: Never Assessed Comments No Sex and Gender Information Value Date Recorded Sex Assigned at Not on file Legal Sex Female 11:18 PM CDT Gender Identity Not on file Sexual Orientation Not on file Plan of Treatment Health Maintenance Due Date Last Done Comments Hepatitis C Virus (HCV) Screening 1960 Pap Smear 1981 Cervical Cancer Screening (CCS) 1990 HPV/Cotest 1990 Cologuard 2005 Colonoscopy 2005 Colorectal Cancer Screening 2005 Immunochemical Fecal Occult Blood 2005 Pneumococcal Immunization (5 0+ years) (1 of 1 - PCV) 2010 Zoster Immunization (1 of 2) 2010 Influenza Immunization (#1) 2025 03/14/2020 SARS-COV-2 Immunization ( season) 2025 04/29/2021, 09/20/2020, 08/20/2020 Respiratory Syncytial Virus (RSV) Immunization (Adult) (1 - 1-dose 75+ series) 12/22/2035 DTaP/Tdap/Td Immunization Discontinued 09/07/2018 TdaP Immunization Completed 09/07/2018 Hepatitis B Immunization Aged Out No longer eligible based on patient's age to complete this topic Human Papillomavirus (HPV) Immunization Aged Out No longer eligible based on patient's age to complete this topic Meningococcal Immunization (ACWY) Aged Out No longer eligible based on patient's age to complete this topic Rotavirus Immunization Aged Out No lo nger eligible based on patient's age to complete this topic Insurance [place]ICAID [place] Care Teams Microcomputer Support Specialist Relationship Specialty Start Date End Date Shanel Ventura APRN PCP - General Advanced Practice Nurse 11/29/20
--- OUTSIDE RECORDS SUMMARY | 2025-02-13 20:34 | XMS_ITS | Data Portability ---
Author Organization [facility] [employer], Main Office Address [address] [place] [address] Assessment No assessment recorded. Plan of Treatment Reminders Order Date Submit Date Provider Last Modified By Organization Details Last Modified Time Details Appointments None recorded. Lab lipid panel, serum [address] (Lab), [address] [place], [address], 3 16:41:42 CMP, serum or plasma [address] (Lab), [address] [place], [address], 3 16:41:56 vitamin D, 25-hydroxy, total, serum [address] (Lab), [address] [place], [address], 3 16:41:14 vitamin B12 + folate, serum or blood [address] (Lab), [address] [place], [address], 3 16:41:30 CBC [address] (Lab), [address] [place], [address], 3 16:40:49 iron + TIBC + ferritin, serum [address] [facility] (Lab), [address] [place], [address], 3 16:41:00 Referral None recorded. Procedures None recorded. Surgeries None recorded. Imaging home sleep study 2022 023 [email or web address] [id number] [facility] ([facility]), [address] [place], [address], 3 09:19:00 Medication Orders nystatin 100,000 unit/mL oral suspension 2022 023 [facility]Pharmacy #[id number], [address] [facility], [place], [address], 3 16:13:54 montelukast 10 mg tablet 2022 023 [id number] [address] [facility] [place], [address], 3 16:16:07 ProAir HFA 90 mcg/actuati on aerosol inhaler 2022 023 [id number] [address] [facility], [place], [address], 3 16:24:45 Patient TargetsNo targets recorded. Patient InstructionsNo instructions recorded. Reason for Referral None Reported. Results Created Date Observation Date Name Description Value Unit Range Abnormal Flag Note LastModifiedBy Organization Detail LastModifiedTime 10/10/19 22 10/09/2021 VITAM IN B12 (DAMIAN SWAPNIL ) vb12 363 pg/mL 239-93 1 Not Available [facility] (Lab) [address] [place], [address], 10/09/2021 20:36:00 10/10/19 22 10/09/2021 VITAM IN D 25-HY DROXY vd25oh 17.0 NG/mL 30-100 low Vitam in D Statu s: Defic ient: <20 ng/mL Insuf ficie nt: 20-29 ng/mL Suffi cient : 30-10 0 ng/mL Not Available [facility] (Lab) [address] [place], [address], 10/09/2021 20:00:44 10/10/19 22 10/09/2021 BASIC METAB OLIC PANEL sodium 140 mmol/ L 137-14 5 Not Available [facility] (Lab) [address] [place], [address], 10/09/2021 19:52:38 10/10/19 22 10/09/2021 BASIC METAB OLIC PANEL potassium 4.4 mmol/ L 3.5-5. 1 Not Available [facility] (Lab) [address] [place], [address], 10/09/2021 19:52:38 10/10/19 22 10/09/2021 BASIC METAB OLIC PANEL chloride 105 mmol/ L 98-107 Not Available [facility] (Lab) [address] [place], [address], 10/09/2021 19:52:38 10/10/19 22 10/09/2021 BASIC METAB OLIC PANEL carbon dioxide 27 mmol/ L 22-30 Not Available [facility] (Lab) [address] [place], [address], 10/09/2021 19:52:38 10/10/19 22 10/09/2021 BASIC METAB OLIC PANEL anion gap 12.4 mmol/ L 14-22 low Not Available [facility] (Lab) [address] [place], [address], 10/09/2021 19:52:38 10/10/19 22 10/09/2021 BASIC METAB OLIC PANEL glucose 84 mg/dL 70-99 Not Available [facility] (Lab) [address] [place], [address], 10/09/2021 19:52:38 10/10/19 22 10/09/2021 BASIC METAB OLIC PANEL BUN 19 mg/dL 8-19 Not Available [facility] (Lab) [address] [place], [address], 10/09/2021 19:52:38 10/10/19 22 10/09/2021 BASIC METAB OLIC PANEL creatinine 1.08 mg/dL 0.66-1 .25 Not Available [facility] (Lab) [address] [place], [address], 10/09/2021 19:52:38 10/10/19 22 10/09/2021 BASIC METAB OLIC PANEL GFR 52 Refer ence Range : Shubert ge GFR Healt hy Adult : >60 mL/mi n/1.7 3 m2 Chron ic Kidne y Disea se: 15-60 mL/mi n/1.7 3 m2 Kidne y Failu re: <15/m L/min /1.73 m2 www.n iddk. nih.g ov The MDRD study equat ion has not been valid ated in child karlo <18 years of age; pregn ant women ; the elder ly >85 years of age; or in some racia l or ethni c subgr oups, such as Ginger nics. Outsi de the valid ated malaika eters , estim ated GFR is less accur ate, requi ring clini carrillo judgm ent on a case- by-ca se basis . Clini carrillo inter preta tion for other races and ages must be made by the clini willard. The MDRD study equat ion has not been valid ated for the evalu ation of serum creat inine relat ed to nutri tiara l statu s or medic ation usage . For perso ns <18 years of age, a pedia tric GFR calcu lator is avail able on the [facility] websi te: https ://yisel payan.o rg/pr ofess ional s/kdo qi/gf r_cal culat or Not Available [facility] (Lab) [address] [place], [address], 10/09/2021 19:52:38 10/10/19 22 10/09/2021 BASIC METAB OLIC PANEL calcium 9.3 mg/dL 8.4-10 .2 Not Available [facility] (Lab) [address] [place], [address], 10/09/2021 19:52:38 10/10/19 22 10/09/2021 HEPAT IC/LI OMAR PANEL alkaline phosphatase 100 U/L 38-126 Not Available [facility] (Lab) [address] [place], [address], 10/09/2021 19:52:34 10/10/19 22 10/09/2021 HEPAT IC/LI OMAR PANEL alanine aminotransfe rase 16 U/L 0-35 Not Available [facility] (Lab) [address] [place], [address], 10/09/2021 19:52:34 10/10/19 22 10/09/2021 HEPAT IC/LI OMAR PANEL aspartate aminotransfe rase 29 U/L 15-37 Not Available [facility] (Lab) [address] [place], [address], 10/09/2021 19:52:34 10/10/19 22 10/09/2021 HEPAT IC/LI OMAR PANEL bilirubin, total 0.70 mg/dL 0.20-1 .30 Not Available [facility] (Lab) [address] [place], [address], 10/09/2021 19:52:34 10/10/19 22 10/09/2021 HEPAT IC/LI OMAR PANEL bilirubin, conjugated (direct) 0.00 mg/dL 0.00-0 .30 Not Available [facility] (Lab) [address] [place], [address], 10/09/2021 19:52:34 10/10/19 22 10/09/2021 HEPAT IC/LI OMAR PANEL biliurubin,u ncong. (indirect) 0.40 mg/dL 0.00-1 .1 Not Available [facility] (Lab) [address] [place], [address], 10/09/2021 19:52:34 10/10/19 22 10/09/2021 HEPAT IC/LI OMAR PANEL total protein 6.9 g/dL 6.3-8. 2 Not Available [facility] (Lab) [address] [place], [address], 10/09/2021 19:52:34 10/10/19 22 10/09/2021 HEPAT IC/LI OMAR PANEL albumin 3.9 g/dL 3.4-5. 0 Not Available [facility] (Lab) [address] [place], [address], 10/09/2021 19:52:34 10/10/19 22 10/09/2021 HEPAT IC/LI OMAR PANEL globulin 3.0 g/dL 2.6-4. 2 Not Available [facility] (Lab) [address] [place], [address], 10/09/2021 19:52:34 10/10/19 22 10/09/2021 HEPAT IC/LI OMAR PANEL A/G ratio 1.3 ratio 1.0-2. 0 Not Available [facility] (Lab) [address] [place], [address], 10/09/2021 19:52:34 10/10/19 22 10/09/2021 LIPID PANEL cholesterol 292 mg/dL 140-19 9 high NIH RAMONITA NSUS RECOM MENDA TION FOR THAI STERO L: ADULT CHILD LOW RISK: <200 <170 BORDE RLINE : <200- 239 ----- HIGH RISK: >240 >200 Not Available [facility] (Lab) [address] [place], [address], 10/09/2021 19:52:33 10/10/19 22 10/09/2021 LIPID PANEL triglyceride s 172 mg/dL 0-150 high NIH RAMONITA NSUS REPOR T RECOM MENDA TION FOR TRIGL YCERI CHESTER: ADULT CHILD LOW RISK: <150 ----- BODER LINE: 150-1 99 ----- HIGH RISK: >200 ----- Not Available [facility] (Lab) [address] [place], [address], 10/09/2021 19:52:33 10/10/19 22 10/09/2021 LIPID PANEL HDL cholesterol 65 mg/dL 40- Not Available [facility] (Lab) [address] [place], [address], 10/09/2021 19:52:33 10/10/19 22 10/09/2021 LIPID PANEL LDL cholesterol, calculated 193 mg/dL 0-130 high NIH RAMONITA NSUS REPOR T RECOM MENDA TIONS FOR LDL: ADULT CHILD LOW RISK <130 <110 (OPTI MAL LDL) <100 ----- BORDE RLINE : 130-1 59 ----- HIGH RISK: >160 >130 A TRIGL YCERI DE RESUL T >400 INVAL IDATE S THE CALCU LATIO N FOR LDL FRACT IONAT ION - THE LDL RESUL T WILL NOT BE REPOR ALMA. Not Available [facility] (Lab) [address] [place], [address], 10/09/2021 19:52:33 01/01/20 22 01/20/2022 BRCAS SURE COMPR EHENS BECKA TEST brcassure comprehensiv e test commen t . NEGAT BECKA FOR PATHO GENIC VARIA NTS No clini bud signi fican t varia nts or varia nts of uncer tain signi fican ce were ident ified . GENE VARIA NT BRCA1 NEGAT BECKA No patho genic varia nts were ident ified . BRCA2 NEGAT BECKA No patho genic varia nts were ident ified . Not Available [facility] (Lab) [address] [place], [address], 01/20/2022 09:14:24 01/01/20 22 01/20/2022 BRCAS SURE COMPR EHENS BECKA TEST specimen type commen t . Whole Blood Not Available [facility] (Lab) [address] [place], [address], 01/20/2022 09:14:24 01/01/20 22 01/20/2022 BRCAS SURE COMPR EHENS BECKA TEST interpretati on commen t . No patho genic varia nts were ident ified . Not Available [facility] (Lab) [address] [place], [address], 01/20/2022 09:14:24 01/01/20 22 01/20/2022 BRCAS SURE COMPR EHENS BECKA TEST released by joya t Emily pearson, PhD, [facility] Not Available [facility] (Lab) [address] [place], [address], 01/20/2022 09:14:24 01/01/20 22 01/20/2022 BRCAS SURE COMPR EHENS BECKA TEST recommendati ons commen t . Roshan ic couns gilson is recom alison d to discu ss the poten tial clini carrillo and/o r repro ducti ve impli catio ns of these resul ts, as well as recom menda tions for testi ng famil y membe rs. To acces s Integ rated Roshan ics Roshan ic Couns elors pleas e visit www.i ntegr irasema mejía cs.co m/gen etic- couns gilson or call (824) [facility] ([phone]). Not Available [facility] (Lab) [address] [place], [address], 01/20/2022 09:14:24 01/01/20 22 01/20/2022 BRCAS SURE COMPR EHENS BECKA TEST clinical info commen t . Perso nal and/o r famil y histo ry of Hered itary Breas t and Ovari an Cance r (HBOC ) Not Available [facility] (Lab) [address] [place], [address], 01/20/2022 09:14:24 01/01/20 22 01/20/2022 BRCAS SURE COMPR EHENS BECKA TEST references commen t . 1. NCCN Roshan ic/Fa giovaniia l High Risk Asses sment : Breas t, Ovari an, and Pancr eatic . Versi on 2. 2. Patricio minor et al. BRCA1 - and BRCA2 -Asso ciate d Hered itary Breas t and Ovari an Cance r. GeneR pedro collins, updat ed 2016. PMID: 77581 425. Not Available [facility] (Lab) [address] [place], [address], 01/20/2022 09:14:24 01/01/2001/20/2022 BRCAS SURE COMPR EHENS BECKA TEST pdf . Perfo rmed at: [facility] Jessica m [address], [place] [address] Lab Direc tor: Byron Begum [facility] , Phone : [phone] Not Available [facility] (Lab) [address] [place], [address], 01/20/2022 09:14:24 01/01/20 22 01/20/2022 BRCAS SURE COMPR EHENS BECKA TEST preauthoriza tion commen t . Prior autho rizat ion revie w compl ete Not Available [facility] (Lab) [address] [place], [address], 01/20/2022 09:14:24 01/01/2001/20/2022 BRCAS SURE COMPR EHENS BECKA TEST additional clinical info commen t . NCCN Guide lines When BRCA1 and BRCA2 resul ts are negat becka, addit ional testi ng may be helpf ul for some patie nts with breas t, ovari an, prost ate and pancr eatic cance r. Guide lines from the Natio nal Compr ehens becka Cance r Minnie little(R) (NCCN (R)) recom mend consi charly jacobs germl ine roshan ic testi ng for high- penet daphne breas t and/o r ovari an cance r genes (incl uding , but not limit ed to, BRCA1 /2, CDH1, PALB2 , PTEN, and TP53) in patie nts with any of the crite stephen in the table below . To discu ss compr ehens becka roshan ic testi ng for breas t, ovari an, prost ate and pancr eatic cance r genes , an Integ rated Purplu ics Roshan ic Coord inato r is avail able at 800-3 45-43 63. Breas t cance r diagn osed <= age 45 Male breas t cance r, ovari an cance r, or pancr eatic cance r Breas t cance r diagn osed age 46-50 with Prost ate multi ple prima ry breas t cance rs or >= 1 cance r at close relat becka with breas t, ovari an, any age and pancr eatic , or prost ate cance r Ashke nazi Jewis h ances try, or that is metas tatic , high risk or in combi natio n with certa in famil y histo ry crite stephen Breas t cance r diagn osed at any age and one of the follo wing: To aid in PARP inhib itor or olapa rib treat ment Ashke nazi Jewis h ances try Tripl e negat becka breas t cance r >= 1 close relat becka with breas t cance r <= age 50, or ovari an, pancr eatic , prost ate, or male breas t cance r at any age >= 3 total diagn oses of breas t cance r in patie nt and/o r close blood relat mar >= 2 close blood relat mar with eithe r breas t or prost ate cance r at any age Patie nts with a first or secon d degre e relat becka meeti ng certa in crite stephen in this table may consi jude germl ine roshan ic testi ng as well. Compl ete crite stephen may be found at NCCN. org. Not Available [facility] (Lab) [address], [place], [address], 01/20/2022 09:14:24 01/01/20 22 01/20/2022 BRCAS SURE COMPR EHENS BECKA TEST methods and limitations commen t . Next- gener ation seque ncing : Genom ic regio ns of inter est are selec alma using a custo m captu re reage nt for targe t enric hment and seque nced via the Illum medhat(R ) next gener ation seque ncing platf orm. Regio ns of inter est inclu de all exons and intro n/exo n junct ions (+/-2 0 nucle otide s) of the BRCA1 (NM_0 17424 .3) and BRCA2 (NM_0 09507 .3) genes . Seque ncing reads are align ed with the human [employer] e refer ence GRCh3 7/hg1 9 build . Minim um mean cover age is 40X. Any segme nt faili ng minim um read depth cover age is rescu ed by bi-di recti onal Sange r seque ncing to compl ete seque nce radha sis. Varia nts, inclu ding SNVs and CNVs, are ident ified using a custo m bioin forma tics pipel ine. Repor alma varia nts: Patho genic and likel y patho genic varia nts and varia nts of uncer tain signi fican ce (VUS) are repor alma. Non-d eleti on varia nts are speci fied using the numbe ring and nomen clatu re recom alison d by the Human Genom e Varia tion Socie ty (HGVS , http: //www .hgvs .org/ ). Benig n varia nts are not repor alma. Varia nt class ifica tion and confi rmati on are consi stent with ACMG stand ards and guide lines (Rich ards, PMID: 74383 868; Diana, PMID: 29196 774). Detai led varia nt class ifica tion infor matio n is avail able upon reque st. A varia nt of uncer tain signi fican ce (VUS) shoul d not be used in clini carrillo decis ion makin g; a VUS is class ified based on inade quate or confl ictin g evide nce regar ding its patho genic ity or clini carrillo relev ance. Limit ation s: Techn ologi es used do not detec t germl ine mosai cism and do not rule out the prese nce of large chrom osoma l aberr ation s, inclu ding rearr angem ents, gene fusio ns, or varia nts in regio ns or genes not inclu ded in this test, or possi ble inter / intra genic inter actio ns betwe en varia nts. Varia nt class ifica tion and/o r inter preta tion may stephen e over time if more infor matio n becom es avail able. False posit becka or false negat becka resul ts may occur for reaso ns that inclu de: roshan ic varia nts, pseud ogene inter feren ce, techn ical handl ing, blood trans fusio ns, bone marro w trans plant ation , misla belin g of sampl es, or gabriela eous repre senta tion of famil y relat ionsh ips. For heter ozygo us varia nts in the same gene the assay canno t deter mine wheth er they are on the same or diffe rent chrom osome ; to deter mine phase and clini carrillo signi fican ce, rarel y, paren kevyn testi ng may be requi red. Exact break point s of exon- level delet ions/ dupli catio ns are not deter mined . The prese nce of an inher ited cance r syndr ome due to a diffe rent roshan ic cause canno t be ruled out. Any inter preta tion shoul d be clini bdu corre lated with infor matio n about the patie nts prese ntati on and relev ant famil y histo ry. This test was devel oped and its perfo rmanc e purnima cteri stics deter mined by [employer]. It has not been clear ed or appro tim by the Food and Drug Admin istra tion. Not Available [facility] (Lab) [address], [place], [address], 01/20/2022 09:14:24 01/01/20 22 12/31/2021 urina lysis , dipst ick Leukocytes (reference range: negative ashley/ l) Negati ve Not Available [address] , [address], [place], [address], 12/31/2021 14:57:36 01/01/20 22 12/31/2021 urina lysis , dipst ick Nitrite (reference rage: negative mg/dl) negati ve Not Available [address] , [address], [place], [address], 12/31/2021 14:57:36 01/01/20 22 12/31/2021 urina lysis , dipst ick Urobilinogen (reference range: 0.2-1 mg/dl) 0.2 Not Available [address] , [address], [place], [address], 12/31/2021 14:57:36 01/01/20 22 12/31/2021 urina lysis , dipst ick Protein (reference range: negative mg/dl) Negati ve Not Available [address] , [address], [place], [address], 12/31/2021 14:57:36 01/01/20 22 12/31/2021 urina lysis , dipst ick pH (reference range: 5-7) 6.5 Not Available [address] , [address], [place], [address], 12/31/2021 14:57:36 01/01/20 22 12/31/2021 urina lysis , dipst ick Blood (reference range: negative Rajesh/ l) Negati ve Not Available [address] , [address], [place], [address], 12/31/2021 14:57:36 01/01/20 22 12/31/2021 urina lysis , dipst ick Specific [place] (reference range: 1.005-1.030) 1.015 Not Available [address] , [address], [place], [address], 12/31/2021 14:57:36 01/01/20 22 12/31/2021 urina lysis , dipst ick Ketone (reference range: negative mg/dl) Negati ve Not Available [address] , [address], [place], [address], 12/31/2021 14:57:36 01/01/20 22 12/31/2021 urina lysis , dipst ick Bilirubin (reference range: negative mg/dl) Small Not Available [address] , [address], [place], [address], 12/31/2021 14:57:36 01/01/20 22 12/31/2021 urina lysis , dipst ick Glucose (reference range: negative mg/dl) Negati ve Not Available [address] , [address], [place], [address], 12/31/2021 14:57:36 01/01/20 22 12/31/2021 urina lysis , dipst ick Appearance Clear Not Available [address] , [address], [place], [address], 12/31/2021 14:57:36 01/01/20 22 12/31/2021 urina lysis , dipst ick Color Yellow Not Available [facility] [address], [place], [address], 12/31/2021 14:57:36 01/01/20 22 12/31/2021 CULTU RE URINE urc ===== ===== ===== ===== ===== ===== ===== ===== ===== ===== ===== ===== ===== ===== ===== ===== ===== ===== ===== ===== ===== ===== ===== ===== CULTU RE NO.: [id number] Exam Statu s: Final Exam Type: CULTU RE URINE ===== ===== ===== ===== ===== ===== ===== ===== ===== ===== ===== ===== ===== ===== ===== ===== ===== ===== ===== ===== ===== ===== ===== ===== Cultu re Repor t: Organ ism #01 Staph yloco ccus haemo lytic us (stah ae) Antib iotic s staha e Achie vable Achie vable (01) Dosag e Serum Level Urine Level mcg/m l mcg/m l Cefox itin Scree n NEG - 021A Cipro floxa kishore <=0.5 S 021A Genta micin <=0.5 S 021A Induc ible Clind amyci NEG - 021A Levof loxac in <=0.1 2 S 021A Linez olid 2 S 021A Oxaci llin <=0.2 5 S 021A Rifam pin <=0.5 S 021A Tetra cycli ne <=1 S 021A Vanco mycin <=0.5 S 021A rt - Test Card Code AST-G P 021A o2 - Final Organ ism STAPH Y 021A af - Antib iotic Fami MACRO L 021A af - Antib iotic Famil y Na ap - Pheno type Name RESIS T 021A ap - Pheno type Name Nitro furan toin <=16 S 021A Not Available [facility] (Lab) [address] [place], [address], 01/03/2022 07:53:20 10/16/19 XR, lumbo sacra l spine , 4 or more view [facility] [address] [place] [address] [phone] Patirajeev t Name: ANAYELI BARAJAS Access ion #: [id number] Sex: F : 1960 5 Locati on: RA2 Attend ing Physic daniel: BETY SADLER Orderi Physic daniel: BETY SADLER Exam Date: 10/16/19 3:57 PM Exam Name: XR L SPINE 4V+ Admitt ing Diagno sis(es ): RADIOL OGY REPORT - FINAL EXAM: XR L SPINE 4V+ HISTOR Y: LBP 60-yea r-old female with low back pain radiat ing down the bilate ral legs, fall in Novemb er 2020. COMPAR KARTHIKEYAN: Radiog raphs dated 2019. TECHNI QUE: Five views of the lumbar spine were perfor med. FINDIN GS: No fractu res are identi fied throug hout the lumbar spine. There is 5 mm cresencio listhe sis L4 on L5. There is mild-t o-mode rate degene rative disc diseas e. There is advanc ed lower lumbar facet arthro henny. The obliqu e films do not demons trate spondy lolysi s. Surgic al clips in the right upper quadra nt are consis tent with prior cholec ystect peña. Page 1 of 2 [facility] Patien t Name: ANAYELI BARAJAS Access ion #: [id number] Sex: F : 1960 5 Exam Date: 10/16/19 3:57 PM Exam Name: XR L SPINE 4V+ Admitt ing Diagno sis(es ): IMPRES ROLAN: 1. No fractu re of the lumbar spine. 2. Degene rative disc diseas e and facet arthro henny. 3. Grade 1 cresencio listhe sis L4 on L5 withou t eviden ce of spondy lolysi s. 4. Given the patien t's histor y of lower extrem ity radicu lar sympto ms, consid er follow -up noncon trast MRI of the lumbar spine for evalua tion of the exitin g nerve roots. Create d and electr onical ly signed by: Migue borjas MD Signed Date: 10/16/19 8:01 PM (CT) Dictat ed by: Migue borjas MD (CT) (CT) Page 2 of [address] [facility] [facility] (Imaging) [address] [place], [address], 07/09/2022 13:31:02 10/16/19 22 10/15/2021 XR, lumba r spine No observ ation record ed. MIGRATION. [id number] [facility] Add On Lab Orders [address] [place], [address], 07/09/2022 13:31:02 11/14/19 22 11/13/2021 XR, cervi carrillo spine , 2 or 3 view No observ ation record ed. MIGRATION. [facility] Add On Lab Orders [address] [place], [address], 07/09/2022 13:31:02 11/14/19 22 XR, cervi carrillo spine , 2 or 3 view [facility] [place] [address] [facility] [place] [address] [phone] Patirajeev t Name: ANAYELI BARAJAS Access ion #: [id number] Sex: F : 1960 1 Locati on: RA2 Attend ing Physic daniel: BETY SADLER Orderi ng Physic daniel: BETY SADLER Exam Date: 11/14/19 4:06 PM Exam Name: XR C SPINE 2-3V Admitt ing Diagno sis(es ): RADIOL OGY REPORT - FINAL EXAM: XR C SPINE 2-3V HISTOR Y: neck pain 60-yea r-old female with neck pain and dizzin ess since fallin g 8 months ago; limite d range of motion ; pain radiat es to the bilate ral lower extrem ities. COMPAR KARTHIKEYAN: None availa ble. TECHNI QUE: AP, latera l, and odonto id views of the cervic al spine were perfor med. FINDIN GS: No cervic al fractu re, listhe sis, or prever tebral soft tissue edema are identi fied. There is mild cervic al degene rative disc diseas e and facet arthro henny. Page 1 of 2 [facility] Juan bustillos Name: ANAYELI BARAJAS Access ion #: [id number] Sex: F : 1960 1 Exam Date: 11/14/19 4:06 PM Exam Name: XR C SPINE 2-3V Admitt ing Diagno sis(es ): IMPRES ROLAN: 1. Degene rative change s of the cervic al spine withou t eviden ce of fractu re. 2. Given the patien t's histor y of upper extrem ity radicu lar sympto ms, consid er follow -up noncon trast MRI of the cervic al spine for evalua tion of the exitin g nerve roots. Create d and electr onical ly signed by: Migue borjas MD Signed Date: 11/14/19 8:10 PM (CT) Dictat ed by: Migue borjas MD (CT) (CT) Page 2 of 2 [id number] 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 Sagita l: T1, T2, Axial: T1, PBSG, Right Sagita l/Obli que: T2, Left Sagita l/Obli que: T2. FINDIN GS: Osseou s: No eviden ce of a fractu re malali gnment or destru ctive proces s preser vation of marrow signal . Page 1 of 3 [facility] Juan bustillos Name: CARLEY Calderon ANAYELI Troy Access ion #: [id number] Sex: F : 1960 8 Exam Date: 01/17/20 11:00 AM Exam Name: MRI C SPINE WO Admitt ing Diagno sis(es ): Spinal cord: Unrema rkable Prever tebral soft tissue s: Unrema rkable Disc spaces : Levels demons trate degene rative desicc ation signal intens ity C2-3: No eviden ce of centra l or neural forami nal stenos is C3-4: Otherw ise unrema rkable C4-5: Mild bulgin g of the degene rate annulu s is noted which result s in mild centra l spinal stenos is. Right zygoap ophyse al and uncove rtebra l joint hypert rophic change s result in mild right neural forami nal stenos is. C5-6: A small centra l disc protru rolan is noted which result s in modera te centra l spinal stenos is. Uncove rtebra l joint hypert rophy on the right result s in modera te right neural forami nal stenos is. C6-7: Mild diffus e bulgin g of the degene rate annulu s is presen t which result s in mild-t o-mode rate centra l spinal stenos is, no eviden ce of neural forami nal or prefor aminal stenos is. C7-T1: Otherw ise unrema rkable Parave rtebra l soft tissue s: Unrema rkable IMPRES ROLAN: See above. Page 2 of 3 [facility] Patien t Name: ANAYELI BARAJAS Access ion #: [id number] Sex: F : 1960 8 Exam Date: 01/17/20 11:00 AM Exam Name: MRI C SPINE WO Admitt ing Diagno sis(es ): Create d and electr onical ly signed by: Alli johnson MD Signed Date: 01/17/20 3:34 PM (CT) Dictat ed by: Alli johnson MD (CT) (CT) Page 3 of 3 [id number] [facility] (Imaging) [address] [place] [address], [address], 07/09/2022 13:31:02 01/17/20 22 01/16/2022 XR, cervi carrillo spine , 2 or 3 view No observ ation record ed. [id number] , [place], [address], 07/09/2022 13:31:02 01/17/20 22 01/16/2022 MRI, lumba r spine , w/o contr ast No observ ation record ed. [id number] , [place], [address], 07/09/2022 13:31:02 01/17/20 MRI, lumba r spine , w/o contr ast [facility] [address] [address] Juan bustillos Name: ANAYELI BARAJAS Access ion #: [id number] Sex: F : 1960 8 Locati on: RA2 Attend ing Physic daniel: BETY SADLER Orderi Physic daniel: BETY SADLER Exam Date: 01/17/20 11:00 AM Exam Name: MRI L SPINE WO Admitt ing Diagno sis(es ): RADIOL OGY REPORT - FINAL EXAM: MRI L SPINE WO HISTOR Y: radicu lopath y lower back pain and right leg pain COMPAR KARTHIKEYAN: None. TECHNI QUE: Multip lanar multis equenc e noncon trast MR images of the lumbar spine were perfor med. Sagita l: T1, T2, Axial: T1, T2, T2 multia ngle. FINDIN GS: Verteb ral bodies : Unrema rkable Conus medull sima: L1, unrema rkable Disc spaces : Degene rative desicc ation signal intens ity noted throug hout the Page 1 of 3 [facility] Juan bustillos Name: ANAYELI BARAJAS Access ion #: [id number] Sex: F : 1960 8 Exam Date: 01/17/20 11:00 AM Exam Name: MRI L SPINE WO Admitt ing Diagno sis(es ): thorac olumba r spine disc spaces . Parave rtebra l soft tissue s: Unrema rkable Vascul ature: No aneury sm T12-L1 : Unrema rkable L1-2: Unrema rkable mild bulgin g of the degene rate annulu s which bulges slight ly asymme tric lead to the right which result s in mild right prefor aminal stenos is and mild right neural forami nal stenos is. L2-3: Otherw ise unrema rkable L3-4: Bilate ral facet hypert rophic change s are noted. A bulgin g degene rate annulu s and facet hypert rophic change s are presen t result ing in mild to modera te right prefor aminal stenos is, mild-t o-mode rate right neural forami nal stenos is and mild left neural forami nal stenos is. There is eviden ce of mild centra l spinal stenos is. L4-5: Degene rative etiolo gy 1-2 mm anteri or offset of L4 relati ve to L5. Additi onally , there is a tiny centra l disc protru rolan superi mposin g a bulgin g degene rate annulu s and bilate ral facet hypert rophy the net result is modera te centra l spinal stenos is, modera te to severe bilate ral prefor aminal stenos is, modera te right neural forami nal stenos is and modera te to severe left neural forami nal stenos is. L5-S1: Bilate ral facet hypert rophic change s, unrema rkable Page 2 of 3 [facility] Patien t Name: ANAYELI BARAJAS Access ion #: [id number] Sex: F : 1960 8 Exam Date: 01/17/20 11:00 AM Exam Name: MRI L SPINE WO Admitt ing Diagno sis(es ): IMPRES ROLAN: See above. Create d and electr onical ly signed by: Alli johnson MD Signed Date: 01/17/20 4:13 PM (CT) Dictat ed by: Alli johnson MD (CT) (CT) Page 3 of 3 [id number] [facility] (Imaging) [address] [place], [address], 07/09/2022 13:31:02 09/18/19 23 09/17/2022 XR, chest No observ ation record ed. [email or web address] [facility] [address] [facility] [address], [place], [address], 09/17/2022 11:56:55 10/04/19 23 10/02/2022 XR, chest No observ ation record ed. [email or web address] [place] [address] [address] [facility] [address], [place], [address], 10/03/2022 12:57:00 03/31/20 23 03/30/2023 XR, chest No observ ation record ed. [email or web address] [place] [address] [address] [facility] [address], [place], [address], 03/31/2023 13:07:32 Result Notes Documentation Provider Name and Address Organization Details Recorded Time Xr, Lumbosacral Spine, 4 Or More View : [facility] [address] [place] [address] Patient Name: ANAYELI ECHOLS Sex: F : 1960 Location: [facility] Attending Physician: BETY GONZALEZ Ordering Physician: BETY GONZALEZ Exam Date: 10/15/2021 3:57 PM Exam Name: XR L SPINE 4V+ Admitting Diagnosis(es): RADIOLOGY REPORT - FINAL EXAM: XR L SPINE 4V+ HISTORY: LBP 60-year-old female with low back pain radiating down the bilateral legs, fall in March 2021. COMPARISON: Radiographs dated 07/19/2019. TECHNIQUE: Five views of the lumbar spine were performed. FINDINGS: No fractures are identified throughout the lumbar spine. There is 5 mm anterolisthesis L4 on L5. There is nekx-vk-twtuuohu degenerative disc disease. There is advanced lower lumbar facet arthropathy. The oblique films do not demonstrate spondylolysis. Surgical clips in the right upper quadrant are consistent with prior cholecystectomy. Page 1 of 2 [facility] Patient Name: ANAYELI ECHOLS Sex: F : 1960 Exam Date: 10/15/2021 3:57 PM Exam Name: XR L SPINE 4V+ Admitting Diagnosis(es): IMPRESSION: 1. No fracture of the lumbar spine. 2. Degenerative disc disease and facet arthropathy. 3. Grade 1 anterolisthesis L4 on L5 without evidence of spondylolysis. 4. Given the patient's history of lower extremity radicular symptoms, consider follow-up noncontrast MRI of the lumbar spine for evaluation of the exiting nerve roots. Created and electronically signed by: Migue Moctezuma MD Signed Date: 10/15/2021 8:01 PM (CT) Dictated by: Migue Moctezuma MD (CT) (CT) Page 2 of 2 Not Available [facility] 07/09/2022 13:31:02 Xr, Cervical Spine, 2 Or 3 View : [address] [address] Patient Name: ANAYELI ECHOLS Sex: F : 1960 Location: [facility] Attending Physician: BETY GONZALEZ Ordering Physician: BETY GONZALEZ Exam Date: 11/13/2021 4:06 PM Exam Name: XR C SPINE 2-3V Admitting Diagnosis(es): RADIOLOGY REPORT - FINAL EXAM: XR C SPINE 2-3V HISTORY: neck pain 60-year-old female with neck pain and dizziness since falling 8 months ago; limited range of motion; pain radiates to the bilateral lower extremities. COMPARISON: None available. TECHNIQUE: AP, lateral, and odontoid views of the cervical spine were performed. FINDINGS: No cervical fracture, listhesis, or prevertebral soft tissue edema are identified. There is mild cervical degenerative disc disease and facet arthropathy. Page 1 of 2 [facility] Patient Name: ANAYELI ECHOLS Sex: F : 1960 Exam Date: 11/13/2021 4:06 PM Exam Name: XR C SPINE 2-3V Admitting Diagnosis(es): IMPRESSION: 1. Degenerative changes of the cervical spine without evidence of fracture. 2. Given the patient's history of upper extremity radicular symptoms, consider follow-up noncontrast MRI of the cervical spine for evaluation of the exiting nerve roots. Created and electronically signed by: Migue Moctezuma MD Signed Date: 11/13/2021 8:10 PM (CT) Dictated by: Migue Moctezuma MD (CT) (CT) Page 2 of 2 Not Available [facility] 07/09/2022 13:31:02 Mri, Cervical Spine, W/o Contrast : [address] [address] Patient Name: ANAYELI ECHOLS Sex: F : 1960 Location: [facility] Attending Physician: BETY GONZALEZ Ordering Physician: BETY GONZALEZ Exam Date: 01/16/2022 11:00 AM Exam Name: MRI C SPINE WO Admitting Diagnosis(es): RADIOLOGY REPORT - FINAL EXAM: MRI C SPINE WO HISTORY: , March 2021 complains of posterior neck pain bilateral arm pain right hip and right leg pain, lower back pain and dizziness COMPARISON: Radiograph 11/13/2021 TECHNIQUE: Multiplanar multisequence noncontrast MR images of the cervical spine were performed. Sagital: T1, T2, Axial: T1, PBSG, Right Sagital/Oblique: T2, Left Sagital/Oblique: T2. FINDINGS: Osseous: No evidence of a fracture malalignment or destructive process preservation of marrow signal. Page 1 of 3 [facility] Patient Name: ANAYELI ECHOLS Sex: F : 1960 Exam Date: 01/16/2022 11:00 AM Exam Name: MRI C SPINE WO Admitting Diagnosis(es): Spinal cord: Unremarkable Prevertebral soft tissues: Unremarkable Disc spaces: Levels demonstrate degenerative desiccation signal intensity C2-3: No evidence of central or neural foraminal stenosis C3-4: Otherwise unremarkable C4-5: Mild bulging of the degenerate annulus is noted which results in mild central spinal stenosis. Right zygoapophyseal and uncovertebral joint hypertrophic changes result in mild right neural foraminal stenosis. C5-6: A small central disc protrusion is noted which results in moderate central spinal stenosis. Uncovertebral joint hypertrophy on the right results in moderate right neural foraminal stenosis. C6-7: Mild diffuse bulging of the degenerate annulus is present which results in zpaj-ik-ujecjqux central spinal stenosis, no evidence of neural foraminal or preforaminal stenosis. C7-T1: Otherwise unremarkable Paravertebral soft tissues: Unremarkable IMPRESSION: See above. Page 2 of 3 [facility] Patient Name: ANAYELI ECHOLS Sex: F : 1960 Exam Date: 01/16/2022 11:00 AM Exam Name: MRI C SPINE WO Admitting Diagnosis(es): Created and electronically signed by: Alli Grimes MD Signed Date: 01/16/2022 3:34 PM (CT) Dictated by: Alli Grimes MD (CT) (CT) Page 3 of 3 Not Available [facility] 07/09/2022 13:31:02 Mri, Lumbar Spine, W/o Contrast : [address] [address] Patient Name: ANAYELI ECHOLS Sex: F : 1960 Location: [facility] Attending Physician: BETY GONZALEZ Ordering Physician: BETY GONZALEZ Exam Date: 01/16/2022 11:00 AM Exam Name: MRI L SPINE WO Admitting Diagnosis(es): RADIOLOGY REPORT - FINAL EXAM: MRI L SPINE WO HISTORY: radiculopathy lower back pain and right leg pain COMPARISON: None. TECHNIQUE: Multiplanar multisequence noncontrast MR images of the lumbar spine were performed. Sagital: T1, T2, Axial: T1, T2, T2 multiangle. FINDINGS: Vertebral bodies: Unremarkable Conus medullaris: L1, unremarkable Disc spaces: Degenerative desiccation signal intensity noted throughout the Page 1 of 3 [facility] Patient Name: ANAYELI ECHOLS Sex: F : 1960 Exam Date: 01/16/2022 11:00 AM Exam Name: MRI L SPINE WO Admitting Diagnosis(es): thoracolumbar spine disc spaces. Paravertebral soft tissues: Unremarkable Vasculature: No aneurysm T12-L1: Unremarkable L1-2: Unremarkable mild bulging of the degenerate annulus which bulges slightly asymmetric lead to the right which results in mild right preforaminal stenosis and mild right neural foraminal stenosis. L2-3: Otherwise unremarkable L3-4: Bilateral facet hypertrophic changes are noted. A bulging degenerate annulus and facet hypertrophic changes are present resulting in mild to moderate right preforaminal stenosis, icax-eq-wpxomatq right neural foraminal stenosis and mild left neural foraminal stenosis. There is evidence of mild central spinal stenosis. L4-5: Degenerative etiology 1-2 mm anterior offset of L4 relative to L5. Additionally, there is a tiny central disc protrusion superimposing a bulging degenerate annulus and bilateral facet hypertrophy the net result is moderate central spinal stenosis, moderate to severe bilateral preforaminal stenosis, moderate right neural foraminal stenosis and moderate to severe left neural foraminal stenosis. L5-S1: Bilateral facet hypertrophic changes, unremarkable Page 2 of 3 [facility] Patient Name: ANAYELI ECHOLS Sex: F : 1960 Exam Date: 01/16/2022 11:00 AM Exam Name: MRI L SPINE WO Admitting Diagnosis(es): IMPRESSION: See above. Created and electronically signed by: Alli Grimes MD Signed Date: 01/16/2022 4:13 PM (CT) Dictated by: Alli Grimes MD (CT) (CT) Page 3 of 3 Not Available [facility] 07/09/2022 13:31:02 Problems Name Problem SNOMED Code Status Onset Date Resolution Date Notes Provider Name and Address Organization Details Recorded Time Steatotic liver disease 934957625 Active 2018 Not Available [facility] 3 13:29:36 Fibromyalg ia 790605805 Active 2018 Not Available [facility] 3 13:29:36 History of laparoscop ic adjustable gastric banding 375185473 Active 2018 Not Available [facility] 3 13:29:37 Rheumatoid arthritis 51249079 Completed 201805/16/2019 Not Available [facility] 3 13:29:37 Hyperlipid emia 78891294 Active 2018 Not Available [facility] 3 13:29:37 C-reactive protein outside reference range 887235611 Active 2019 Not Available [facility] 3 13:29:36 Obstructiv e sleep apnea syndrome 44083207 Active 2019 Not Available [facility] 3 13:29:37 Vitamin D deficiency 25451426 Active 2020 Not Available [facility] 3 13:29:36 Mixed anxiety and depressive disorder 710706753 Active 2020 Not Available [facility] 3 13:29:36 Gastroesop hageal reflux disease 692350331 Active 2021 Not Available [facility] 3 13:29:36 Low back pain 190393680 Active 2021 Not Available [facility] 3 13:29:36 Family history of breast cancer 437992711 Active 2021 Not Available [facility] 3 13:29:37 Spinal stenosis in cervical region 99649925 Active 2022 KELSEY Barcenas [address], [address], [place], [address] , [email or web address] 3 12:02:13 Upper respirator y infection 68730336 Active 2022 Vikash INNA Colón [address], [address], [place], [address] , [email or web address] 3 15:25:45 Pneumonia 151616760 Active 2022 KELSEY Barcenas [address], [address], [place], [address] , [employer] 3 16:31:29 Candidiasi s of mouth 89665392 Active 2022 KELSEY Barcenas [address], [address], [place], [address] , [employer] 3 16:11:34 Dyspnea 859526003 Active 2022 KELSEY Barcenas [address], [address], [place], [address] , [employer] 3 16:14:07 Sleep disorder 30210483 Active 2022 KELSEY Barcenas [address], [address], [place], [address] , [employer] 3 16:15:25 Iron deficiency anemia 26214761 Active 2022 KELSEY Barcenas [address], [address], [place], [address] , [employer] 3 16:24:55 Cobalamin deficiency 222867709 Active 2022 KELSEY Barcenas [address], [address], [place], [address] , [email or web address] 3 16:25:34 Problem Notes None recorded. Medical Equipment None Reported. Allergies Allergen ID Allergen Name Allergen Category Reaction Reaction Severity Criticality Documentation Date Start Date Code Code System Note Provider Name and Address Organization Details Recorded Time 02932 Substance with sulfonami de structure and antibacte rial mechanism of action (substanc e) medicatio n Not available Not available Not available 07/09/2022 61861 8003 SNOMED Not Available [facility] 3 13:31:00 Medications Name Sig Start Date Stop Date Status Note LastModified by Organization Details LastModified Time celecoxib 200 mg capsule Take 1 capsule every day by oral route for 30 days. 07/04 completed Not Available Not Available Not Available fluoxetine 40 mg capsule TAKE 1 CAPSULE BY MOUTH ONCE DAILY IN THE MORNING ALONG WITH 20MG. Needs appt before next refill 2023 active Not Available Not Available Not Avai lable cyclobenzap rine 10 mg tablet TAKE 1 TABLET BY MOUTH THREE TIMES A DAY NEEDED 2022 active Not Available Not Available Not Avai lable fluconazole 100 mg tablet TAKE 1 TABLET BY MOUTH EVERY DAY FOR 14 DAYS active Not Available Not Available No t Available atorvastati n 40 mg tablet Take 1 tablet every day by oral route at bedtime for 30 days. active Not Available Not Available No t Available clotrimazol e 10 mg cameron Please specify direction s, refills and quantity active Not Available Not Available No t Available nystatin 100,000 unit/mL oral suspension TAKE 5 ML BY MOUTH 4 TIMES A DAY active Not Available Not Available No t Available doxycycline hyclate 100 mg capsule Take 1 capsule twice a day by oral route for 10 days. 09/20 completed Not Available Not Available Not Available atorvastati n 20 mg tablet Take 1 tablet every day by oral route at bedtime for 90 days. 10/15 completed Not Available Not Available Not Available ropinirole 1 mg tablet TAKE 3 TABLETS BY MOUTH AT BEDTIME active Not Available Not Available No t Available tizanidine 2 mg tablet TAKE 1 TABLET BY MOUTH ONCE DAILY NEEDED FOR MUSCLE RELAXANT. TAKE IN THE EVENING. active Not Available Not Available No t Available azithromyci n 250 mg tablet TAKE 2 TABLETS BY MOUTH TODAY, THEN TAKE 1 TABLET DAILY FOR 4 DAYS active Not Available Not Available No t Available alprazolam 1 mg tablet 1 tab prior to procedure active Not Available Not Available No t Available Lidocaine Viscous 2 % mucosal solution TAKE 15 ML EVERY 3 HOURS BY ORAL ROUTE NEEDED. active Not Available Not Available No t Available tizanidine 4 mg tablet TAKE 1 TABLET BY MOUTH EVERY 6 HOURS NEEDED active Not Available Not Available No t Available benzonatate 200 mg capsule Take 1 capsule 3 times a day by oral route as needed. active Not Available Not Available No t Available hydrocodone 5 mg-acetamin ophen 325 mg tablet TAKE 1 TABLET EVERY 4 6 HOURS NEEDED FOR PAIN 08/22 completed Not Available Not Available Not Available sucralfate 1 gram tablet TAKE 1 TABLET BY MOUTH TWICE A DAY active Not Available Not Available No t Available ondansetron HCl 4 mg tablet active Not Available Not Available Not Available prednisone 20 mg tablet TAKE 2 TABLETS BY MOUTH EVERY DAY FOR 5 DAYS active Not Available Not Available No t Available penicillin V potassium 500 mg tablet TAKE 1 TABLET BY MOUTH EVERY 12 HOURS FOR 10 DAYS. active Not Available Not Available No t Available acetaminoph en 300 mg-codeine 30 mg tablet TAKE 1 TABLET BY MOUTH EVERY 6 HOURS NEEDED FOR MODERATE PAIN MUST LAST 30 DAYS active Not Available Not Available No t Available ciprofloxac in 250 mg tablet Take 1 tablet every 12 hours by oral route for 5 days. 05/14 completed Not Available Not Available Not Available omeprazole 40 mg capsule,del ayed release TAKE 1 CAPSULE BY MOUTH EVERY DAY FOR 90 DAYS active Not Available Not Available No t Available aspirin 81 mg tablet,vilma yed release TAKE ONE TABLET DAILY active Not Available Not Available No t Available oxycodone-a cetaminophe n 5 mg-325 mg tablet TAKE 1 TABLET EVERY 4-6 HOURS NEEDED FOR PAIN 04/26 completed Not Available Not Available Not Available amoxicillin 875 mg tablet TAKE 1 TABLET BY MOUTH EVERY 12 HOURS FOR 10 DAYS active Not Available Not Available No t Available trazodone 100 mg tablet Take 1 po at bedtime 2022 active Not Available Not Available Not Avai lable Kenalog 10 mg/mL suspension for injection In office injection administe red by the provider 07/04 completed [facility]: [id number]- [phone] Not Available Not Available Not Available benzonatate 100 mg capsule TAKE 1 CAPSULE BY MOUTH THREE TIMES A DAY NEEDED FOR COUGH active Not Available Not Available No t Available simvastatin 20 mg tablet Take 1 tablet every day by oral route for 30 days. active Not Available Not Available No t Available nortriptyli ne 10 mg capsule TAKE 1 TO 2 CAPSULES AT BEDTIME 04/26 completed Not Available Not Available Not Available ferrous sulfate 325 mg (65 mg iron) tablet active Not Available Not Available Not Available neomycin-po lymyxin-dex ameth 3.5 mg/mL-10,00 0 unit/mL-0.1 % eye drops active Not Available Not Available Not Available polymyxin B sulfate 10,000 unit-trimet hoprim 1 mg/mL eye drops INSTILL 1 DROP INTO AFFECTED EYE(S) BY OPHTHALMI C ROUTE EVERY 6 HOURS active Not Available Not Available No t Available Prevalite 4 gram powder for suspension in a packet MIX 1 PACKET (4 GRAMS) IN CHOICE OF FLUID AND DRINK DAILY active Not Available Not Available No t Available pramipexole 0.25 mg tablet TAKE 1 TABLET BY MOUTH EVERYDAY AT BEDTIME active Not Available Not Available No t Available buspirone 7.5 mg tablet TAKE 1 TABLET BY MOUTH EVERY 12 HOURS 04/26 completed Not Available Not Available Not Available omeprazole 20 mg capsule,del ayed release TAKE 1 CAPSULE BY MOUTH TWICE DAILY BEFORE MEAL(S) 07/23 completed Not Available Not Available Not Available diclofenac sodium 75 mg tablet,vilma yed release TAKE 1 TABLET BY MOUTH TWICE A DAY NEEDED active Not Available Not Available No t Available montelukast 10 mg tablet TAKE 1 TABLET BY MOUTH EVERY DAY active Not Available Not Available No t Available ergocalcife rol (vitamin D2) 1,250 mcg (50,000 unit) capsule TAKE 1 CAPSULE BY MOUTH TWICE WEEKLY 2022 active Not Available Not Available Not Avai lable methylpredn isolone 4 mg tablets in a dose pack Use as directed 05/14 completed Not Available Not Available Not Available albuterol sulfate HFA 90 mcg/actuati on aerosol inhaler INHALE 2 PUFFS EVERY 4 HOURS BY INHALATIO N ROUTE NEEDED active Not Available Not Available No t Available celecoxib 100 mg capsule 07/23 completed Not Available Not Available Not Available ondansetron 4 mg disintegrat ing tablet DISSOLVE 1 TABLET IN MOUTH ONCE EVERY 4 HOURS NEEDED active Not Available Not Available No t Available cefdinir 300 mg capsule Take 1 capsule every 12 hours by oral route for 10 days. active Not Available Not Available No t Available fluoxetine 20 mg capsule TAKE 1 CAPSULE BY MOUTH ONCE DAILY IN THE MORNING ALONG WITH 40MG active Not Available Not Available No t Available doxycycline hyclate 100 mg tablet TAKE ONE TABLET TWICE DAILY FOR 10 DAYS 09/20 completed Not Available Not Available Not Available amoxicillin 875 mg-mariano carolina clavulanate 125 mg tablet TAKE 1 TABLET BY MOUTH EVERY 12 HOURS FOR 10 DAYS 10/27 completed Not Available Not Available Not Available rosuvastati n 20 mg tablet TAKE 1 TABLET BY MOUTH EVERY DAY AT BEDTIME active Not Available Not Available No t Available rosuvastati n 40 mg tablet TAKE 1 TABLET BY MOUTH EVERY DAY active Not Available Not Available No t Available nitrofurant oin monohydrate /macrocryst als 100 mg capsule TAKE ONE CAPSULE TWICE DAILY UNTIL ALL TAKEN . TAKE WITH FOOD 04/26 completed Not Available Not Available Not Available pregabalin 150 mg capsule TAKE 1 CAPSULE BY MOUTH TWICE A DAY. Needs appt before next refill 2023 active Not Available Not Available Not Avai lable chlorhexidi ne gluconate 0.12 % mouthwash SWISH 15 MLS BY MOUTH AND SPIT TWICE DAILY FOR 2 WEEKS 08/22 completed Not Available Not Available Not Available lidocaine (PF) 10 mg/mL (1 %) injection solution In office injection administe red by the provider 07/04 completed [facility]: [id number] [phone] [phone] Not Available Not Available Not Available Emgality Pen 120 mg/mL subcutaneou s pen injector Inject 1ml monthly 11/28 completed Not Available Not Available Not Available Ubrelvy 50 mg tablet TAKE 1 TABLET BY MOUTH AT ONSET OF MIGRAINE. MAY REPEAT IN 2 HOURS IF HEADACHE NOT RESOLEVED . NO MORE THAN 2 TABLETS IN 24 HOUR PERIOD 11/28 completed Not Available Not Available Not Available Vitals Date Recorded Body mass index (BMI) Body height Oxygen saturation Oxygen saturation in Arterial blood by Pulse oximetry Heart rate Body temperature Body weight Systolic And Diastolic Provider Name and Address Organization Details Last Updated DateTime 3 33.6 kg/m2 167.64 cm 96 % 96 % 81 /min 96.3 [degF] 43885.2 1 g 126/78 mm[Hg] Not Available [facility] 3 13:29:26 Date Recorded Body mass index (BMI) Body height Oxygen saturation Oxygen saturation in Arterial blood by Pulse oximetry Heart rate Body temperature Body weight Systolic And Diastolic Provider Name and Address Organization Details Last Updated DateTime 2 34.5 kg/m2 167.64 cm 97 % 97 % 80 /min 96.4 [degF] 17075.7 7 g 110/70 mm[Hg] Not Available [facility] 3 13:29:26 Date Recorded Body height Body mass index (BMI) Body weight Body temperature Oxygen saturation Oxygen saturation in Arterial blood by Pulse oximetry Heart rate Systolic And Diastolic Provider Name and Address Organization Details Last Updated DateTime 3 167.64 cm 29.5 kg/m2 71965.4 g 97.2 [degF] 96 % 96 % 80 /min 136/80 mm[Hg] Maria Esther Vanegas CMA [place] [facility] 3 16:01:52 Date Recorded Body mass index (BMI) Body height Oxygen saturation Oxygen saturation in Arterial blood by Pulse oximetry Heart rate Body temperature Body weight Systolic And Diastolic Provider Name and Address Organization Details Last Updated DateTime 2 33.4 kg/m2 167.64 cm 98 % 98 % 72 /min 96.3 [degF] 00159.6 2 g 114/68 mm[Hg] Not Available [facility] 3 13:29:26 Date Recorded Body mass index (BMI) Body height Oxygen saturation Oxygen saturation in Arterial blood by Pulse oximetry Heart rate Body temperature Body weight Systolic And Diastolic Provider Name and Address Organization Details Last Updated DateTime 2 33.9 kg/m2 167.64 cm 96 % 96 % 84 /min 97.2 [degF] 42232.4 g 118/76 mm[Hg] Not Available [facility] 3 13:29:26 Social History Question Answer Notes LastModified by Organizat ion Details LastModified Time Tobacco Smoking Status Never Smoker Not Available [facility] 07/09/2022 13:29:16 What Is Your Level Of Caffeine Consumption? Occasional [id number] Information not available 07/09/2022 In The 14 Days Before Symptom Onset, Have You Had Close Contact With A Laboratory-confirm ed COVID-19 While That Case Was Ill? No [id number] Information not available 07/09/2022 In The 14 Days Before Symptom Onset, Have You Had Close Contact With A Person Who Is Under Investigation For COVID-19 While That Person Was Ill? No [id number] Information not available 07/09/2022 What Type Of Diet Are You Following? REGULAR [id number].[id number] [id number] Information not available 07/09/2022 Has Tobacco Cessation Counseling Been Provided? No [id number].[id number] Information not available 07/09/2022 Do You Have Any Dietary Restrictions? No MIGRATION.[id number] 2309 Information not available 07/09/2022 Sex: Female Functional Status Question Answer Note LastModified by Organizat ion Details LastModified Time Do you use any illicit or recreational drugs? No [id number] 26 Information not available 07/09/2022 Do you or have you ever used any other forms of tobacco or nicotine? No [id number].[id number] 26 Information not available 07/09/2022 What is your level of alcohol consumption? None [id number].[id number] 26 Information not available 07/09/2022 What is your exercise level? None [id number].[id number] 26 Information not available 07/09/2022 Mental Status None recorded. Family History Relationship Description Onset Age of this Age Resolved Age Notes LastModified by Organization Details LastModified Time Father Congestive heart failure [id number] Not available 07/09/2022 13:29:18 Father Chronic obstructive pulmonary disease MIGRATION.945 [id number] Not available 07/09/2022 13:29:18 Father Diabetes mellitus MIGRATION.971 [id number] Not available 07/09/2022 13:29:18 Father Hyperlipidem ia MIGRATION.982 [id number] Not available 07/09/2022 13:29:18 Father Myocardial infarction MIGRATION.822 [id number] Not available 07/09/2022 13:29:19 Mother Hyperlipidem ia MIGRATION.440 [id number] Not available 07/09/2022 13:29:19 Mother Malignant neoplasm of breast MIGRATION.485 [id number] Not available 07/09/2022 13:29:19 Medical History No medical history recorded. Gynecological History Statement/Question Response Menses Monthly N Current Control Method Menopause Breast Problems no Discharge no Obstetrics History GPAL:G 0 P 0 0 0 0 Immunizations Vaccine Type Date Status Note Provider Nam e and Address Organization Details Recorded Time COVID-19, mRNA, LNP-S, PF, 30 mcg/0.3 mL dose 08/20/2020 completed Not Available [facility] 13:30:59 Influenza, split virus, quadrivalent, PF 02/25/2021 completed Not Available [facility] 3 13:30:59 Influenza, split virus, quadrivalent, PF 03/14/2020 completed Not Available [facility] 3 13:30:59 Past Encounters Encounter ID Performer Location Encounter Start Date Encounter Closed Date Diagnosis/Indication Diagnosis SNOMED-CT Code Diagnosis ICD10 Code Diagnosis IMO Codes Diagnosis Note [id number] S[facility] [place] include 234 beds at the [facility] , [place] [address] 08/22/2020 00:00:00 08/22/2020 17:41:26 [id number] Richi Mrarero MD [address] [address] 09/12/2020 00:00:00 09/12/2020 16:50:15 [id number] Hanna Otoole MD [facility] [place] include 234 beds at the [facility] [place] [address] 02/25/2021 00:00:00 02/26/2021 10:35:10 [id number] Hanna Otoole MD [facility] [place] include 234 beds at the [facility] [place] [address] 04/01/2021 00:00:00 04/02/2021 08:44:55 [id number] [facility] [place] Counts include 234 beds at the [facility] [place] [address] 07/23/2021 00:00:00 07/23/2021 16:21:04 [id number] Hanna Otoole MD [facility] [place] include 234 beds at the [facility] [place] [address] 10/15/2021 00:00:00 10/16/2021 08:18:48 [id number] Hanna Otoole MD [facility] [place] Counts include 234 beds at the [facility] [address] [place] [address] 11/13/2021 00:00:00 11/14/2021 08:16:28 [id number] [facility] ic_[facility]way [facility] Adam [place] [address] [place] [address] 12/31/2021 00:00:00 12/31/2021 15:10:43 [id number] KELSEY Barcenas [facility] Primary Care Jacob [place] [address] [place] [address] 05/14/2022 00:00:00 05/14/2022 16:48:36 [id number] Blessing Lambert MD [facility] [address] [facility] [address] 10/27/2022 15:57:26 10/27/2022 16:37:08 Candidiasis of mouth 63857739 B37.0 Improving. Dyspnea 245609660 R06.00 Symptoms seem most likely allergy related.Wi ll try adding on singulair and continue albuterol as needed.If symptoms do not improve, will have her see pulmonolog y to evaluate further. Sleep disorder 25266744 G47.9 Started work-up for sleep apnea 2 years ago and states she was told she had ZULEMA but never received any further follow-up or equipment. Will put in orders for new sleep study and have her continue f/u with Dr. Win. Spinal hang scarlet in cervical region 15707501 M48.02 Has appointmen t with neurosurge ry this month. 05/14/22: MRI Cervical Spine 01/16/22. She has completed course of PT.Will take acetaminop hen-codein e for pain PRN. She also takes daily diclofenac and pregabalin .Will submit new referrals for neurosurge ry and pain management as she never followed up because she states she was never contacted about referrals. Iron defic iency anemia 41989367 D50.9 Recheck labs. Vitamin D deficiency 347 28980 E55.9 Currently on 50,000 units twice weekly. Cobalamin deficiency 190 345770 E53.8 Not currently on supplement . Hyperlipidemia 76376098 E78.5 Health Concerns Section Related Observation LastModified by Organization Detai ls LastModified Time None Recorded Concern Status LastModified by Organization Details LastModified Time None Recorded Advance Directives Directive None Recorded Payers Insurance Date Sequence Insurance Name Policy Number Policy Mejia Covered Member ID Mejia Member ID Guarantor Name 10/24/2022 1 [facility] (HMO) [id number] Anayeli Carolina Kinza [id number] Anayeli Echols 10/24/2022 [facility] (MEDICAID HMO) [id number] Anayeli Carolina Friesland [id number] Anayeli Echols Notes Date Note Type Note Provider Name and Address Organization Details Recorded Time 10/27/2022 text/html Pt. was seen at ER 09/17/22 and diagnosed with pneumonia (treated with azithromycin) and then 10/02/22 for mouth pain, diagnosed with thrush/ulcers (treated with nystatin).CBC/me tabolic normal.CXR unremarkable. EKG normal, unchanged. KELSEY Barcenas [address] [place] [address], [facility] [address] [place], [address], [place] [facility] 10/27/2022 17:03:15 OBGyn Episode No OBEpisode recorded.
--- OUTSIDE RECORDS SUMMARY | 2025-02-13 20:34 | XMS_ITS | Patient Health Record ---
Author Organization [facility] Address [address] [place] [address] Care Team Providers Care Extension Course Counselor Name Role Phone Jairon Hall Unavailable [phone] Reason For Referral No Information Medications Medication SIG (Take, Route, Frequency, Duration) Notes Start Date End Date Status Prevalite 4 gram Packet Oral *Pick strength-form from [employer] for eRX* Active Aspirin Adult Low Strength 81 MG Tablet Delayed Release Oral Active Atorvastatin Calcium 40 MG Tablet Oral Active Ondansetron HCl 4 MG Tablet Oral Active rOPINIRole HCl 1 MG Tablet Oral Active FLUoxetine HCl 20 MG Capsule Oral Active Acetaminophen-Codeine #3 300-30 MG Tablet Oral Active Benzonatate 100 MG Capsule Oral Active Sucralfate 1 GM Tablet Oral Active Doxycycline Hyclate 100 MG Tablet Oral Active FLUoxetine HCl 40 MG Capsule Oral Active Amoxicillin-Pot Clavulanate 875-125 MG Tablet Oral Active traZODone HCl 100 MG Tablet Oral Active tiZANidine HCl 2 MG Tablet Oral Active Omeprazole 20 MG Capsule Delayed Release Oral Active Simvastatin 20 MG Tablet Oral Active Plan Of Treatment No Information Insurance Providers Payer Name Payer Address Payer Phone Subscriber Number Group Number Insured Name Patient Relationship to Insured Coverage Start Date Coverage End Date Bcbs-I l Ppo [address] [place] [address] [id number] ALEJANDRA CARRANZA Spouse - patient is the spouse of the insured
--- OUTSIDE RECORDS SUMMARY | 2025-02-13 20:34 | XMS_ITS | Clinical Summary ---
Author Organization [facility] Address [address] [place] [address] Care Team Providers Care Flame Cutter Name Role Phone Zain Garnett MD Unavailable [phone] None, Provider MD Primary Care Provider Unavaila ble Allergies Active Allergy Reactions Criticality Noted Date Comments Cayenne Unknown 11/10/2016 Cefdinir Contact Dermatitis Medium 03/25/2018 Blisters in mouth Codeine Unknown 11/10/2016 Hydrocodone-Acetaminophen Anaphylaxis High 7 Currently taking and no allergies Morphine Other (see comment) Medium 12/31/2017 Makes HR drop Prochlorperazine Rash Medium Sulfa Antibiotics Other (see comment) 7 SOB, HIVES Reaction: Throat tightness, Sulfacetamide Anaphylaxis High 08/05/2017 Medications flecainide 100 MG tablet Take 1 tablet (100 mg total) by mouth daily as needed (palpitations ). 30 tablet 1 8 Active metoprolol tartrate 25 MG tablet Take 1 tablet (25 mg total) by mouth every 8 (eight) hours as needed (palpitations ). 60 tablet 1 8 Active aspirin 81 MG chewable tablet Chew 1 tablet (81 mg total) by mouth daily. 100 tablet 3 8 Active folic acid 1 MG tablet Take 1 tablet by mouth daily. 8 Active cyanocobalamin 1000 MCG/ML injection INJECT 1 ML MONTHLY DIRECTED 1 8 Active nortriptyline 10 MG capsule TAKE 1 TO 2 CAPSULES AT BEDTIME 1 9 Active FLUOXETINE 20 MG capsuleIndicatio ns:Anxiety TAKE 1 CAPSULE DAILY EVERY DAY IN THE MORNING ALONG WITH A 40MG CAPSULE 90 capsule 1 9 Active FLUOXETINE 40 MG capsuleIndicatio ns:Anxiety TAKE 1 CAPSULE EVERY DAY IN THE MORNING ALONG WITH A 20MG CAPSULE 90 capsule 1 9 Active OMEPRAZOLE 20 MG capsuleIndicatio ns:Gastroesophag eal reflux disease, esophagitis presence not specified TAKE ONE CAPSULE TWICE DAILY BEFORE MEALS 60 capsule 6 9 Active TRAZODONE 100 MG tabletIndication s:Anxiety TAKE ONE TABLET DAILY AT BEDTIME 90 tablet 2 9 Active TIZANIDINE 2 MG tabletIndication s:Neck pain, chronic TAKE THREE TABLETS ONCE DAILY NEEDED 60 tablet 4 9 Active ASPIRIN EC 81 MG tablet TAKE ONE TABLET DAILY 15 tablet 0 Active ONDANSETRON 4 MG tabletIndication s:Gastroesophage al reflux disease, esophagitis presence not specified TAKE ONE TABLET EVERY 8 HOURS NEEDED FOR NAUSEA 90 tablet 0 Active Active Problems Problem Noted Date Diagnosed Date Mass of soft tissue 07/04/2018 Assessment & Plan (07/04/2018 8:08 AM 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 She will see how she feels after completing Pernicious anemia 01/04/2018 Paroxysmal atrial fibrillati on with rapid ventricular response ([facility] 12/18/2017 Obesity (BMI 30.0-34.9) 12/18/2017 ZULEMA (obstructive sleep apnea) 12/18/2017 GERD (gastroesophageal reflux disease) 8 Neck pain, chronic 08/17/2017 Anxiety 08/05/2017 Assessment & Plan (07/04/2018 8:09 AM CORE LAYER MACHINE OPERATOR): Needs refill. Currently controlled on the fluoxetine 60mg BRCA1 positive 08/05/2017 Fatty liver disease, nonalcoholic 08/05/2017 Fibromyalgia 08/05/2017 Herniation of intervertebral disc 08/05/2017 Herpes zoster 08/05/2017 Migraines 08/05/2017 Rheumatoid arthritis ([facility]) 8 Resolved Problems Problem Noted Date Diagnosed Date Resolved Date Dyspnea on effort 12/18/2017 06/14/2018 Chest pain 06/14/2018 Immunizations Immunization Administration Dates Next Due Tdap (Historical Only-select from magnify glass) 09/07/2018 Social History Tobacco Use Types Packs/Day Years Used Date Smoking Tobacco: Never Smokeless Tobacco: Never Alcohol Use Standard Drinks/Week Comments No 0 (1 standard drink = 0.6 oz pur e alcohol) Comments No Sex and Gender Information Value Date Recorded Sex Assigned at Not on file Legal Sex Female 7:43 PM CDT Gender Identity Not on file Sexual Orientation Not on file Last Filed Vital Signs Vital Sign Reading Time Taken Comments Blood Pressure 136/73 07/24/2023 6:09 PM CDT Pulse 69 07/24/2023 6:09 PM CDT Temperature 36.7 C (98 F) 07/24/2023 4:11 PM CDT Respiratory Rate 20 07/24/2023 4:11 PM CDT Oxygen Saturation 99% 07/24/2023 4:11 PM CDT Inhaled Oxygen Concentration - - Weight 88.9 kg (195 lb 15.8 oz) 07/24/2023 4:11 PM CDT Height 170.2 cm (5' 7) 07/24/2023 4:11 PM CDT Body Mass Index 30.7 07/24/2023 4:11 PM CDT Plan of Treatment Health Maintenance Due Date Last Done Comments Cervical Cancer Screening Pap Smear (Age 30 to 64) Every 3 Years 1960 Annual Physical 12/22/1963 Hepatitis C 1978 Cervical Cancer Screening Pap with HPV Testing (Age 30 to 64) Every 5 Years 1990 Cervical Cancer Screening with HPV 1990 Mammogram Screening 2000 Pneumococcal Vaccine: 50+ Years (1 of 1 - PCV) 2010 Zoster Vaccines (1 of 2) 2010 RSV Immunization or 60+ Years (1 - Risk 60-74 years 1-dose series) 2020 Colorectal Cancer Screening Colonoscopy (10 Years) 10/05/2022 10/05/2012 COVID-19 Vaccine (5 - 2025-26 season) 2025 04/05/2022, 04/29/2021, 09/20/2020, Additional history exists Influenza Adult (#1) 2025 04/05/2022, 02/25/2021, 03/14/2020 DTaP, Tdap and Td Vaccines (2 - Td or Tdap) 09/07/2028 09/07/2018 Meningococcal B Vaccine Aged Out No l onger eligible based on patient's age to complete this topic Meningococcal Vaccine Aged Out No kylie sharri eligible based on patient's age to complete this topic RSV Immunizations Under 20 Months Aged Out No longer eligible based on patient's age to complete this topic Procedures Procedure Name Priority Date/Time Associated Diagnosis Comments COLONOSCOPY Routine 10/05/2012 12:00 AM CDT from Last 3 Months or Most Recently Relevant to Health Maintenance Results * Colonoscopy (10/05/2012 12:00 AM CDT) 10/05/2012 10/05/2012 Narrative [facility] TO EPIC CONVERSION - 10/05/2012 12:00 AM CDT Documented hx of procedure Procedure Note Md Generic MD Jody - 03/14/2018 Documented hx of procedure Generic Conversion Md [facility] PROCEDURE ORDERABLES Final Result [facility] TO [facility] CONVERSION from Last 3 Months or Most Recently Relevant to Health Maintenance Insurance [employer] [employer] Care Teams Flame Cutter Relationship Specialty Start Date End Date None, Provider, PCP - General UNKNOWN PHYSICIAN SPECIALTY 07/08/23 Zain Garnett MD [address] [facility] [address] [place] [address] Marquita Broker In Charge CARDIOVASCULAR DISEASE 12/17/17
[2025-02-13 20:45] LABS: Alanine Aminotransferase 19 U/L (6-35); Albumin Level 3.8 g/dL (3.5-5.1); Alkaline Phosphatase 103 U/L (38-126); Anion Gap 7 mmol/L (4-12); Aspartate Amino Transferase 29 U/L (14-36); Bilirubin,Total 0.4 mg/dL (0.2-1.3); Blood Urea Nitrogen 10 mg/dL (7-17); Calcium 8.7 mg/dL (8.4-10.2); Carbon Dioxide 26 mmol/L (22-30); Chloride 105 mmol/L (98-107); Estimated CRCL calculation 76 ml/min; Estimated Glomerular Filt Rate > 60; Glucose 98 mg/dL (65-110); Potassium 3.4 mmol/L (3.4-5.0); Sodium 138 mmol/L (137-145); Total Protein 6.8 g/dL (6.3-8.2)
[2025-02-13 20:49] LABS: INR 1.0; Prothrombin Time 13.5 Seconds (11.1-14.7)
[2025-02-13 20:59] LABS: Hypochromasia 1+; Microcytosis 1+ (NORMAL)
[2025-02-13 21:00] LABS: Schistocytes None Seen
--- NOTE | 2025-02-13 21:42 | ED_ITS ---
HPI - Fall General Chief Complaint: Fall Stated Complaint: FALL, HIT HEAD, RIGHT ARM, HIP, KNEE PAIN. Time Seen by Provider: 02/13/25 20:08 Source: patient Mode of arrival: EMS Limitations: no limitations History of Present Illness HPI Narrative: 64-year-old with a history of anxiety, depression, hyperlipidemia was brought in from home by EMS with a complains of fall. Patient states that he was not out of her truck did not realize that there with a garbage can behind the she accidentally fell on her right hip complaining of pain mostly on the medial aspect of the hip. To also states that she might have hit her head but no LOC. Denies any neck pain. complaint: fall Onset (ago): hour(s) (1) Fall from: standing Fall witnessed: yes, by family Place fall occurred: home Loss of consciousness: none Context: tripped/slipped Location of injury: head and pelvis Related Data Allergies Allergy/AdvReac Type Severity Reaction Status Date / Time hydrocodone Allergy Severe HALLUCINATI Verified 04/18/24 09:21 ONS morphine Allergy Severe ANAPHYLAXIS Verified 04/18/24 09:21 adhesive tape Allergy Intermediate Rash Verified 04/18/24 09:21 latex Allergy Intermediate Itching Verified 04/18/24 09:21 ketorolac Allergy Unknown Anxiety Verified 04/18/24 09:21 Sulfa (Sulfonamide Allergy Unknown shortness Verified 04/18/24 09:21 Antibiotics) of breath and itching Review of Systems 2 Review of Systems: All systems reviewed & are unremarkable except as noted in HPI and below Constitutional: Constitutional: Reports no additional constitutional complaints Eyes: Eyes: Reports no additional eye complaints ENT: Reports system reviewed and no additional complaints, except as documented Cardiovascular: Cardiovascular: Reports no additional cardiovascular complaints Respiratory: Respiratory: Reports no additional respiratory complaints Gastrointestinal: Gastrointestinal: Reports no additional gastrointestinal complaints Musculoskeletal: Musculoskeletal: Reports as per HPI Neurologic: Reports system reviewed and no additional complaints, except as documented [facility] Past Medical History Medical History Sciatica of right side Psychophysiological insomnia Other polyosteoarthritis Other chronic pain ZULEMA (obstructive sleep apnea) Neck pain Mixed hyperlipidemia Major depressive disorder, recurrent, moderate Lipid screening Insomnia due to psychological stress Gynecomastia, female Genetic susceptibility to malignant neoplasm of ovary Generalized anxiety disorder Family history of breast cancer BRCA2 positive Abnormal mammogram Abdominal pain in female COVID-19 Fibromyalgia History of sleep apnea History of hypertension Surgical History Surgical History Status post total left knee replacement Presence of unspecified artificial knee joint History of oophorectomy Bariatric surgery status History of cholecystectomy History of inguinal hernia repair History of hysterectomy Family History Family History Father Hypertension Cerebrovascular accident Family history of diabetes mellitus in first degree relative Family history of heart disease in male family member before age 55 Family history of type 1 diabetes mellitus Mother Hypertension Family history of malignant neoplasm of breast in first degree relative Other Asthma Depression Family history of allergic disorder Family history of arthritis Social History Social History (Updated 07/13/23 @ 14:53 by Jyoti Vallejo) Smoking status: Never smoker Second hand tobacco smoke exposure: No Alcohol intake: never Do You Feel Safe in your Home?: Yes Lack of Transportation: No Lack of Food: Never True Current Housing: I Have Housing Concerned About Future Housing: No Difficulty Paying Gas/Electric Bills: No Difficulty Paying for Meds: No Currently Unemployed: No Education: High School Diploma/GED Difficulty w/ Childcare or Family Care: No Living arrangements: with family Gender identity (if verbalized by the patient): Female Exam 2 Narrative: GENERAL: Well-appearing, well-nourished, and in no acute distress. HEAD: Normocephalic, atraumatic. EYES: PERRLA and EOMI. ENT: Nares clear, no rhinorrhea or epistaxis. Mucous membranes moist. NECK: Supple. CHEST: Clear to auscultation. No respiratory distress. HEART: Regular rate and rhythm. No murmur heard. Normal peripheral pulses. ABDOMEN: Soft, nontender, nondistended, normal active bowel sounds. EXTREMITIES: Normal range of motion. No edema. No obvious shortening noted no rotation complained of pain mostly on the medial aspect of the thigh on the right side SKIN: Warm, dry, no rash. NEURO: No focal deficits. Alert and oriented x3. PSYCH: Normal mood and affect. Course Vital Signs Vital signs: Vital Signs Temperature 36.6 C 02/13/25 20:05 Pulse Rate 78 02/13/25 20:05 Respiratory Rate 17 02/13/25 20:05 Blood Pressure 148/85 H 10/06/25 20:05 Pulse Oximetry 100 02/13/25 20:05 Temperature 36.6 C 02/13/25 20:05 Pulse Rate 75 02/13/25 20:37 Respiratory Rate 14 02/13/25 20:37 Blood Pressure 109/78 02/13/25 20:37 Pulse Oximetry 92 02/13/25 20:37 MDM - Fall Differential Diagnosis Differential diagnosis: Likely concussion with loss of consciousness and other (Hip fracture, pelvic fracture, head injury) Lab Data Attestation: I reviewed the patient's lab results. 02/13/25 20:29 02/13/25 20:29 Labs: Lab Results 02/13/25 Range/Units 20:29 WBC 9.8 (4.5-10.0) K/mm3 RBC 4.06 L (4.2-5.4) M/mm3 Hgb 8.8 L (12.0-15.0) g/dL Hct 29.0 L (37.0-47.0) % MCV 71.4 L (80-100) fl MCH 21.7 L (26-34) pg MCHC 30.3 L (32-36) g/dl RDW 18.9 H (11.5-14.5) % Plt Count 274 (150-375) k/mm3 MPV 9.1 (7.4-10.4) fl Immature Gran % (Auto) 1.2 H (0-0.5) % Neut % (Auto) 69.3 (45.5-73.1) % Lymph % (Auto) 17.8 L (18.3-44.2) % [place] % (Auto) 7.2 (2.6-8.5) % Eos % (Auto) 4.0 (0-4.4) % Baso % (Auto) 0.5 (0.2-1.2) % Lymph # (Auto) 1.74 (0.9-3.2) K/mm3 [place] # (Auto) 0.7 H (0.1-0.6) K/mm3 Eos # (Auto) 0.4 H (0-0.3) K/mm3 Baso # (Auto) 0.1 (0.0-0.1) K/mm3 Abs Immat Gran (auto) 0.12 H (0.00-0.031) K/mm3 Absolute Neuts (auto) 6.8 H (1.3-6.7) K/mm3 Absolute Nucleated RBC 0.000 (0.0-0.012) K/mm3 Band Neutrophils % Not Reportable Nucleated RBC % 0.0 (0.0-0.2) % Platelet Estimate Adequate (Adequate) Hypochromasia 1+ Microcytosis 1+ (NORMAL) Schistocytes None seen PT 13.5 (11.1-14.7) Seconds INR 1.0 Sodium 138 (137-145) mmol/L Potassium 3.4 (3.4-5.0) mmol/L Chloride 105 (98-107) mmol/L Carbon Dioxide 26 (22-30) mmol/L Anion Gap 7 (4-12) mmol/L BUN 10 (7-17) mg/dL Creatinine 0.73 (0.7-1.0) mg/dL Estim Creat Clear Calc 76 ml/min Estimated GFR > 60 (59 - ) Glucose 98 (65-110) mg/dL Calcium 8.7 (8.4-10.2) mg/dL Total Bilirubin 0.4 (0.2-1.3) mg/dL AST 29 (14-36) U/L ALT 19 (6-35) U/L Alkaline Phosphatase 103 (38-126) U/L Total Protein 6.8 (6.3-8.2) g/dL Albumin 3.8 (3.5-5.1) g/dL ECG Data EKG #1: ECG completion date: 02/13/25 ECG completion time: 21:58 EKG Interpretation: normal rate (66), sinus rhythm, no ectopy, normal QRS and normal QT Discharge Plan Discharge Clinical Impression: Closed fracture of pubic ramus Qualifiers: Encounter type: initial encounter Laterality: right Qualified Code(s): S32.591A - Other specified fracture of right pubis, initial encounter for closed fracture Patient Disposition: Still a Patient Condition: Stable Instructions: Antibiotic Form Patient Language: Uzbek Prescriptions: No Action duloxetine 60 mg capsule,delayed release(DR/EC) 60 mg PO DAILY Qty: 90 3RF gabapentin 600 mg tablet 600 mg PO DAILY Qty: 90 3RF omeprazole 40 mg capsule,delayed release(DR/EC) 40 mg PO DAILY Qty: 90 3RF tizanidine 4 mg capsule 4 mg PO QHS Qty: 90 3RF trazodone 100 mg tablet See Rx Instructions .ROUTE .COMPLEX Qty: 90 3RF Dose Instruction: TAKE 1 TABLET BY MOUTH EVERY DAY AT BEDTIME NEEDED FOR INSOMNIA Rx Instructions: TAKE 1 TABLET BY MOUTH EVERY DAY AT BEDTIME NEEDED FOR INSOMNIA triamcinolone acetonide 0.1 % cream See Rx Instructions .ROUTE .COMPLEX Qty: 80 1RF Dose Instruction: APPLY TOPICALLY TWICE A DAY Rx Instructions: APPLY TOPICALLY TWICE A DAY albuterol sulfate 90 mcg/actuation HFA aerosol inhaler See Rx Instructions .ROUTE .COMPLEX Qty: 6.7 3RF Dose Instruction: INHALE 1 PUFF BY MOUTH 4 TIMES A DAY NEEDED FOR WHEEZE OR FOR SHORTNESS OF BREATH Rx Instructions: INHALE 1 PUFF BY MOUTH 4 TIMES A DAY NEEDED FOR WHEEZE OR FOR SHORTNESS OF BREATH cholecalciferol (vitamin D3) 1,250 mcg (50,000 unit) capsule See Rx Instructions .ROUTE .COMPLEX Qty: 12 0RF Dose Instruction: TAKE 1 CAPSULE BY MOUTH ONCE WEEKLY Rx Instructions: TAKE 1 CAPSULE BY MOUTH ONCE WEEKLY ropinirole 4 mg tablet See Rx Instructions .ROUTE .COMPLEX Qty: 90 3RF Dose Instruction: TAKE 1 TABLET BY MOUTH DAILY AT BEDTIME Rx Instructions: TAKE 1 TABLET BY MOUTH DAILY AT BEDTIME Follow-up/Referrals: Shanel Ventura APRN [Primary Care Provider, Family Practice] Time of Disposition: 22:08
--- NOTE | 2025-02-13 22:59 | P.HP_ITS ---
H&P: HPI History of Present Illness Date/Time: 02/13/25 22:59 Chief Complaint: Fall Narrative: 64-year-old female with PMH COVID and RSV with residual shortness of breath, anxiety and depression, hyperlipidemia, fibromyalgia, hypertension, iron deficiency anemia, vitamin B12 deficiency, vitamin-D deficiency presents to [facility] ER on 02/13/2025 after a fall. She reports she got out of her car and someone put a garbage can there so she fell and hit her head on the door and then fell on her right buttock and right hip. Complained of pain. ER evaluation demonstrated a comfortable female with stable vital signs, hemoglobin 8.8, slightly lower than her baseline of 10, MCV 71.4, Chem 7 panel and LFTs within normal limits. Head CT no acute findings, hip and right pelvis x-ray demonstrating minimally displaced fractures of the right superior and inferior pubic rami and right pubic body. Patient was given Zofran, Dilaudid. She reportedly has a allergy to hydrocodone with hallucinations and anaphylaxis with morphine but she tolerated Dilaudid well. Review of Systems Review of Systems: All systems reviewed & are unremarkable except as noted in HPI and below (Subjective) PMFSH Past Medical History Medical History Sciatica of right side Psychophysiological insomnia Other polyosteoarthritis Other chronic pain ZULEMA (obstructive sleep apnea) Neck pain Mixed hyperlipidemia Major depressive disorder, recurrent, moderate Lipid screening Insomnia due to psychological stress Gynecomastia, female Genetic susceptibility to malignant neoplasm of ovary Generalized anxiety disorder Family history of breast cancer BRCA2 positive Abnormal mammogram Abdominal pain in female COVID-19 Fibromyalgia History of sleep apnea History of hypertension Surgical History Surgical History Status post total left knee replacement Presence of unspecified artificial knee joint History of oophorectomy Bariatric surgery status History of cholecystectomy History of inguinal hernia repair History of hysterectomy Family History Family History Father Hypertension Cerebrovascular accident Family history of diabetes mellitus in first degree relative Family history of heart disease in male family member before age 55 Family history of type 1 diabetes mellitus Mother Hypertension Family history of malignant neoplasm of breast in first degree relative Other Asthma Depression Family history of allergic disorder Family history of arthritis Social History Social History (Updated 07/13/23 @ 14:53 by Jyoti Vallejo) Smoking status: Never smoker Second hand tobacco smoke exposure: No Alcohol intake: never Do You Feel Safe in your Home?: Yes Lack of Transportation: No Lack of Food: Never True Current Housing: I Have Housing Concerned About Future Housing: No Difficulty Paying Gas/Electric Bills: No Difficulty Paying for Meds: No Currently Unemployed: No Education: High School Diploma/GED Difficulty w/ Childcare or Family Care: No Living arrangements: with family Gender identity (if verbalized by the patient): Female Meds Home Medications and Allergies Home Medications ?Medication ?Instructions ?Recorded ?Confirmed ?Type omeprazole 40 mg capsule,delayed 40 mg PO DAILY #90 ca ps 07/12/24 02/14/25 Rx release tizanidine 4 mg capsule 4 mg PO QHS #90 caps 5 02/14/25 Rx trazodone 100 mg tablet See Rx Instructions .Route 0 07/12/24 02/14/25 Rx .COMPLEX #90 tabs albuterol sulfate 90 mcg/actuation See Rx Instructions .Route 10/19/24 02/14/25 Rx aerosol inhaler .COMPLEX #6.7 ea cholecalciferol (vitamin D3) 1,250 See Rx Instructions .Route 12/20/24 02/14/25 Rx mcg (50,000 unit) capsule .COMPLEX #12 caps ropinirole 4 mg tablet See Rx Instructions .Route 0 01/10/25 02/14/25 Rx .COMPLEX #90 tabs gabapentin 600 mg tablet 600 mg PO Q12H 02/14/2512/02 History Allergies Allergy/AdvReac Type Severity Reaction Status Date / Time hydrocodone Allergy Severe HALLUCINATI Verified 04/18/24 09:21 ONS morphine Allergy Severe ANAPHYLAXIS Verified 04/18/24 09:21 adhesive tape Allergy Intermediate Rash Verified 04/18/24 09:21 latex Allergy Intermediate Itching Verified 04/18/24 09:21 ketorolac Allergy Unknown Anxiety Verified 04/18/24 09:21 Sulfa (Sulfonamide Allergy Unknown shortness Verified 04/18/24 09:21 Antibiotics) of breath and itching Vital Signs Vital Signs - 24 hr 02/13/25 20:05 02/13/25 20:11 02/13/25 20:15 Temperature 98 F Pulse Rate 78 83 79 Respiratory Rate 17 17 21 H Blood Pressure 148/85 H Pulse Oximetry 100 100 97 02/13/25 20:16 02/13/25 20:32 02/13/25 20:37 Temperature Pulse Rate 78 82 75 Respiratory Rate 13 14 14 Blood Pressure 156/76 H 109/78 Pulse Oximetry 96 92 Exam Const: General: comfortable and no acute distress Other: A&O x3, pleasant and cooperative Eyes: Pupils: Equal, round and reactive pupils present Neck: Neck: supple Resp: Effort & Inspection: normal respiratory effort Auscultation: clear to auscultation bilaterally Cardio: Rate: regular rate Rhythm: regular rhythm Heart sounds: no gallops, no murmurs and no rubs GI: Inspection: non-distended GI Palp: Yes Soft to palpation and No Te nderness to palpation present (GI) : General: Yes bladder normal to palpation Neuro: Other: Right lower extremity flexion at the hip limited by severe pain, otherwise motor function and sensation intact. Extrem: General: no edema H&P: Results Labs Labs: Short CBC 02/13/25 Range/Units 20:29 WBC 9.8 (4.5-10.0) K/mm3 Hgb 8.8 L (12.0-15.0) g/dL Hct 29.0 L (37.0-47.0) % Plt Count 274 (150-375) k/mm3 BMP 02/13/25 20:29 Sodium 138 Potassium 3.4 Chloride 105 Carbon Dioxide 26 BUN 10 Creatinine 0.73 Glucose 98 Calcium 8.7 Liver Function 02/13/25 Range/Units 20:29 Total Bilirubin 0.4 (0.2-1.3) mg/dL AST 29 (14-36) U/L ALT 19 (6-35) U/L Alkaline Phosphatase 103 (38-126) U/L Albumin 3.8 (3.5-5.1) g/dL Assessment and Plan Assessment and plan (1) Anxiety and depression: Code(s): F41.9 - Anxiety disorder, unspecified; F32.A - Depression, unspecified Status: Acute (2) Closed fracture of pubic ramus: Qualifiers: Encounter type: initial encounter Laterality: right Qualified Code(s): S32.591A - Other specified fracture of right pubis, initial encounter for closed fracture Code(s): S32.599A - Other specified fracture of unspecified pubis, initial encounter for closed fracture Status: Acute Plan 64-year-old female with PMH COVID and RSV with residual shortness of breath, anxiety and depression, hyperlipidemia, fibromyalgia, hypertension, iron deficiency anemia, vitamin B12 deficiency, vitamin-D deficiency presents to [facility] ER on 02/13/2025 after a fall. She reports she got out of her car and someone put a garbage can there so she fell and hit her head on the door and then fell on her right buttock and right hip. Complained of pain. ER evaluation demonstrated a comfortable female with stable vital signs, hemoglobin 8.8, slightly lower than her baseline of 10, MCV 71.4, Chem 7 panel and LFTs within normal limits. Head CT no acute findings, hip and right pelvis x-ray demonstrating minimally displaced fractures of the right superior and inferior pubic rami and right pubic body. Patient was given Zofran, Dilaudid. She reportedly has a allergy to hydrocodone with hallucinations and anaphylaxis with morphine but she tolerated Dilaudid well. ----- For some reason I was called from the ER to admit a patient who is here primarily with a pubic rami fracture and there was no orthopedic surgeon on her case yet. I asked that orthopedic surgery be contacted before this patient is admitted to ensure they will be comfortable managing this patient. She rests comfortably, continue Tylenol and Dilaudid p.r.n.. Bed rest, fall precaution. SCDs for DVT prophylaxis, start pharmacological DVT prophylaxis as guided by Orthopedic surgery. The patient has history of COVID and RSV and she reports sometimes she has trouble with dyspnea on exertion. She even has a albuterol rescue inhaler prescribed. She has never smoked, or been diagnosed with any lung conditions. I discussed the risk of using narcotics and the patient wants to continue. We will hold trazodone, tizanidine, gabapentin while we are administering Dilaudid. Start continuous pulse oximetry. No evidence of overt bleeding, unclear why she is not on iron supplementation. Hemoglobin is 8.8 which is slightly lower than baseline albeit relatively stable. She has hypochromasia and microcytosis. Low iron, low ferritin store. Start ferrous sulfate, consider laxatives/stool softener especially while receiving narcotics for pain. ----- Saline lock IV. Patient wishes to be full code. 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 Hospitalist MIPS Advance Care Plan I have confirmed that the patient's Advanced Care Plan is present, code status is documented, or surrogate decision maker is listed in patient medical record.: Yes Medication Reconciliation I have utilized all available resources to obtain, update and review the patients current medications (includes all prescriptions, OTC, herbals, cannabis, and nutritional supplements).: Yes
[2025-02-14 00:05] VITALS: BP 145/65; PULSE 80; RESP 18; TEMP 36.2; O2SAT 97
--- NOTE | 2025-02-14 00:19 | ADMGEN ---
This patient, Anayeli Echols, was admitted to 3 [facility] Surg Room 319-01. Patient/family oriented to hospital policies and general routines including ID bracelet, bed and alarms, visiting hours, pain management, procedures, bathroom and other care routines, personal items, smoking policy, room service/diet, and visiting hours. Information on how to activate the Rapid Response Team has been discussed. Patient/Family are encouraged to report perceived risks to care and to ask questions if they do not understand what they are told or what they should do.
[2025-02-14] MEDS: HYDROmorphone HCL INJ (*CRX) 1 MG/ML SYR 0.5 MG IV PUSH ×4 (02:59→19:28)
[2025-02-14 05:40] VITALS: BP 137/63; PULSE 71; RESP 18; TEMP 37.6; O2SAT 96
[2025-02-14 06:00] LABS: Hematocrit 29.6 % (37.0-47.0); Hemoglobin 8.7 g/dL (12.0-15.0); Mean Corpuscular HGB Conc 29.4 g/dl (32-36); Mean Corpuscular Hemoglobin 21.5 pg (26-34); Mean Corpuscular Volume 73.3 fl (80-100); Platelet Count Result 256 k/mm3 (150-375); Red Blood Count 4.04 M/mm3 (4.2-5.4); White Blood Count 8.3 K/mm3 (4.5-10.0)
[2025-02-14 06:26] LABS: Anion Gap 4 mmol/L (4-12); Blood Urea Nitrogen 9 mg/dL (7-17); Calcium 8.5 mg/dL (8.4-10.2); Carbon Dioxide 30 mmol/L (22-30); Chloride 102 mmol/L (98-107); Estimated CRCL calculation 73 ml/min; Estimated Glomerular Filt Rate > 60; Glucose 100 mg/dL (65-110); Magnesium 2.1 mg/dL (1.6-2.3); Potassium 3.5 mmol/L (3.4-5.0); Sodium 136 mmol/L (137-145)
--- NOTE | 2025-02-14 07:33 | PM.CNOR ---
Assessment and Plan Assessment and plan (1) Closed fracture of pubic ramus: Qualifiers: Encounter type: initial encounter Laterality: right Qualified Code(s): S32.591A - Other specified fracture of right pubis, initial encounter for closed fracture <KELSEY Hardy - Last Filed: 02/14/25 14:02> Code(s): S32.599A - Other specified fracture of unspecified pubis, initial encounter for closed fracture <KELSEY Hardy - Last Filed: 02/14/25 14:02> Status: Acute <KELSEY Hardy - Last Filed: 02/14/25 14:02> Assessment and Plan: Superior and inferior pelvic rami fractures. Patient fell over a bad of garbage. Typically ambulates without assistance. Has support at home. Can be treated conservatively. Patient may weight bear as tolerated and start PT/OT. She may not be able to tolerate much initially. Will take 6-8 weeks for healing. May benefit from SNF/Rehab at discharge but patient is motivated to return home. Spoke with patient's nurse. Patient does not tolerate pain medications. Reviewed radiographs of the right hip and pelvis as well as the femur. Radiographs show superior and inferior pelvic rami fracture. No fracture at the femur. Moderate arthritis in the knee. Ortho instructions: D/C to SNF/rehab or home with home health if doing well with PT/OT. Xray and follow up in office in approximately 4-6 weeks. PT: WBAT with a walker. DVT prophylaxis: continue Lovenox for 30 days total Pain medication: Tylenol or Oxycodone. <KELSEY Hardy - Last Filed: 02/14/25 14:02> Assessment and Plan: Patient seen and examined. Discussed above care plan. Radiographic images reviewed personally. Agree with conservative care plan. Pain medication and discharge plan discussed with nursing. <Dani Mccallum MD - Last Filed: 02/14/25 16:24> History of Present Illness HPI Consult date: 02/14/25 <KELSEY Hardy - Last Filed: 02/14/25 14:02> 02/14/25 <Dani Mccallum MD - Last Filed: 02/14/25 16:24> Chief complaint: Pubic rami fracture <KELSEY Hardy - Last Filed: 02/14/25 14:02> Narrative: Patient admitted to the hospital after she fell over a bag of garbage. She hit her head, right hip, and right buttock. Patient had immediate pain and was taken to the Emergency department where she was found to have a superior and inferior pelvic rami fracture. Patient typically lives at home and ambulates without assistance. She does have help at home and wishes to discharge back home. Notes some shoulder and elbow soreness from the fall without any limitations to range of motion or strength. No groin pain prior to injury. History of knee pain. Pain is at the anterior femur today. <KELSEY Hardy - Last Filed: 02/14/25 14:02> Review of Systems Review of Systems: All systems reviewed & are unremarkable except as noted in HPI and below <KELSEY Hardy - Last Filed: 02/14/25 14:02> FOR[facility]LY [facility] Past Medical History Medical History: Medical History Sciatica of right side Psychophysiological insomnia Other polyosteoarthritis Other chronic pain ZULEMA (obstructive sleep apnea) Neck pain Mixed hyperlipidemia Major depressive disorder, recurrent, moderate Lipid screening Insomnia due to psychological stress Gynecomastia, female Genetic susceptibility to malignant neoplasm of ovary Generalized anxiety disorder Family history of breast cancer BRCA2 positive Abnormal mammogram Abdominal pain in female COVID-19 Fibromyalgia History of sleep apnea History of hypertension <KELSEY Hardy - Last Filed: 02/14/25 14:02> Surgical History Surgical History: Surgical History Status post total left knee replacement Presence of unspecified artificial knee joint History of oophorectomy Bariatric surgery status History of cholecystectomy History of inguinal hernia repair History of hysterectomy <KELSEY Hardy - Last Filed: 02/14/25 14:02> Family History Family History: Family History Father Hypertension Cerebrovascular accident Family history of diabetes mellitus in first degree relative Family history of heart disease in male family member before age 55 Family history of type 1 diabetes mellitus Mother Hypertension Family history of malignant neoplasm of breast in first degree relative Other Asthma Depression Family history of allergic disorder Family history of arthritis <KELSEY Hardy - Last Filed: 02/14/25 14:02> Social History Social History: Social History (Updated 07/13/23 @ 14:53 by Jyoti Vallejo) Smoking status: Never smoker Second hand tobacco smoke exposure: No Alcohol intake: never Substance use: never Substance use type: does not use Do You Feel Safe in your Home?: Yes Lack of Transportation: No Lack of Food: Never True Current Housing: I Have Housing Concerned About Future Housing: No Difficulty Paying Gas/Electric Bills: No Difficulty Paying for Meds: No Currently Unemployed: No Education: Master's Degree or Higher Difficulty w/ Childcare or Family Care: No Living arrangements: with family Gender identity (if verbalized by the patient): Female Spiritual care concerns: No <KELSEY Hardy - Last Filed: 02/14/25 14:02> Meds Home Medications and Allergies Home medications: Home Medications ?Medication ?Instructions ?Recorded ?Confirmed ?Type omeprazole 40 mg capsule,delayed 40 mg PO DAILY #90 caps 07/12/24 02/14/25 Rx release tizanidine 4 mg capsule 4 mg PO QHS #90 caps 07/12/24 02/14/25 Rx trazodone 100 mg tablet See Rx Instructions .Route 07/12/24 02/14/25 Rx .COMPLEX #90 tabs albuterol sulfate 90 mcg/actuation See Rx Instructions .Route 10/19/24 02/14/25 Rx aerosol inhaler .COMPLEX #6.7 ea cholecalciferol (vitamin D3) 1,250 See Rx Instructions .Route 12/20/24 02/14/25 Rx mcg (50,000 unit) capsule .COMPLEX #12 caps ropinirole 4 mg tablet See Rx Instructions .Route 01/10/25 02/14/25 Rx .COMPLEX #90 tabs gabapentin 600 mg tablet 600 mg PO Q12H 02/14/25 02/14/25 History <KELSEY Hardy - Last Filed: 02/14/25 14:02> Allergies/Adverse reactions: Allergies Allergy/AdvReac Type Severity Reaction Status Date / Time hydrocodone Allergy Severe HALLUCINATI Verified 04/18/24 09:21 ONS morphine Allergy Severe ANAPHYLAXIS Verified 04/18/24 09:21 adhesive tape Allergy Intermediate Rash Verified 04/18/24 09:21 latex Allergy Intermediate Itching Verified 04/18/24 09:21 ketorolac Allergy Unknown Anxiety Verified 04/18/24 09:21 Sulfa (Sulfonamide Allergy Unknown shortness Verified 04/18/24 09:21 Antibiotics) of breath and itching <KELSEY Hardy - Last Filed: 02/14/25 14:02> Vital Signs Vital Signs - 24 hr 02/13/25 20:05 02/13/25 20:11 02/13/25 20:15 Temperature 98 F Pulse Rate 78 83 79 Respiratory Rate 17 17 21 H Blood Pressure 148/85 H Pulse Oximetry 100 100 97 Oxygen Delivery 02/13/25 20:16 02/13/25 20:32 02/13/25 20:37 Temperature Pulse Rate 78 82 75 Respiratory Rate 13 14 14 Blood Pressure 156/76 H 109/78 Pulse Oximetry 96 92 Oxygen Delivery 02/13/25 21:43 02/13/25 21:45 02/13/25 21:47 Temperature Pulse Rate 81 77 77 Respiratory Rate 18 13 16 Blood Pressure 100/86 Pulse Oximetry 90 95 98 Oxygen Delivery 02/13/25 22:10 02/13/25 22:15 02/13/25 22:30 Temperature Pulse Rate 68 73 78 Respiratory Rate 15 18 23 H Blood Pressure Pulse Oximetry Oxygen Delivery 02/13/25 22:45 02/13/25 23:38 02/14/25 00:05 Temperature 98 F 97.2 F L Pulse Rate 83 80 Respiratory Rate 24 H 18 Blood Pressure 145/65 H Pulse Oximetry 97 Oxygen Delivery 02/14/25 01:01 02/14/25 05:40 Temperature 99.7 F H Pulse Rate 71 Respiratory Rate 18 Blood Pressure 137/63 Pulse Oximetry 96 Oxygen Delivery Room Air <KELSEY Hardy - Last Filed: 02/14/25 14:02> Exam Narrative: Normal weight 64 y/o female. Resting comfortably. Sitting up at the commode at the time of my visit. No edema. No ecchymosis. No erythema. Mild pain at the right pelvis. No hematoma. Range of motion limited due to pain. Calf nontender. Thigh nontender. No varicosities. Distal pulses palpable. Wiggles toes. <KELSEY Hardy - Last Filed: 02/14/25 14:02> Results Labs Result Diagrams: 02/14/25 05:36 02/14/25 05:36 <KELSEY Hardy - Last Filed: 02/14/25 14:02> Labs: Abnormal lab results 02/13/25 02/14/25 Range/Units 20:29 05:36 RBC 4.06 L 4.04 L (4.2-5.4) M/mm3 Hgb 8.8 L 8.7 L (12.0-15.0) g/dL Hct 29.0 L 29.6 L (37.0-47.0) % MCV 71.4 L 73.3 L (80-100) fl MCH 21.7 L 21.5 L (26-34) pg MCHC 30.3 L 29.4 L (32-36) g/dl RDW 18.9 H 19.2 H (11.5-14.5) % Immature Gran % (Auto) 1.2 H (0-0.5) % Lymph % (Auto) 17.8 L (18.3-44.2) % [place] # (Auto) 0.7 H (0.1-0.6) K/mm3 Eos # (Auto) 0.4 H (0-0.3) K/mm3 Abs Immat Gran (auto) 0.12 H (0.00-0.031) K/mm3 Absolute Neuts (auto) 6.8 H (1.3-6.7) K/mm3 Sodium 136 L (137-145) mmol/L H & H 02/13/25 02/14/25 Range/Units 20:29 05:36 Hgb 8.8 L 8.7 L (12.0-15.0) g/dL Hct 29.0 L 29.6 L (37.0-47.0) % Coagulation 02/13/25 Range/Units 20:29 INR 1.0 All other labs normal. <KELSEY Haryd - Last Filed: 02/14/25 14:02>
--- NOTE | 2025-02-14 08:25 | P.PNIM_ITS ---
Progress Note: A&P Assessment and Plan (1) Closed fracture of pubic ramus: Qualifiers: Encounter type: initial encounter Laterality: right Qualified Code(s): S32.591A - Other specified fracture of right pubis, initial encounter for closed fracture Code(s): S32.599A - Other specified fracture of unspecified pubis, initial encounter for closed fracture Status: Acute Assessment and Plan: - presented with mechanical fall -hip and right pelvis x-ray demonstrating minimally displaced fractures of the right superior and inferior pubic rami and right pubic body. - orthopedic surgery consulted: * D/C to SNF/rehab * Xray and follow up in office in approximately 6 weeks. * PT: WBAT with a walker. * DVT prophylaxis: continue Lovenox for 30 days total - continue pain control - PT/OT (2) Anxiety and depression: Code(s): F41.9 - Anxiety disorder, unspecified; F32.A - Depression, unspecified Status: Acute Assessment and Plan: - continue home trazodone (3) Fall: Code(s): W19.XXXA - Unspecified fall, initial encounter Status: Acute Assessment and Plan: - She reports she got out of her car and someone put a garbage can there so she fell and hit her head on the door and then fell on her right buttock and right hip. - CT head with no acute process - CXR no acute process - PT/OT (4) Iron deficiency anemia: Code(s): D50.9 - Iron deficiency anemia, unspecified Status: Acute Assessment and Plan: - Hgb 8.8 on admit, stable this AM. Denied signs of bleeding. - has prior history of iron deficiency anemia. Reports remote history of colonoscopy with polyps, but hasn't had a scope since due to losing insurance. Strongly encouraged close outpatient follow-up for repeat colonoscopy. - started on iron supplement on admission. Monitor CBC. Transfuse Hgb <7. Plan Code status: full code DVT prophylaxis: Lovenox Dispo: TBD pending PT/OT Subjective Date/time seen: 02/14/25 08:25 Interval history: Patient seen examined at bedside. Pain is well controlled. Denies any blood in her stools, dark/tarry stools. Having pain in her upper thigh. Review of Systems Review of Systems: All systems reviewed & are unremarkable except as noted in HPI and below (Subjective) Exam Narrative: General: NAD Eyes: EOMI ENT: neck supple Cardiovascular: Regular rate and rhythm Respiratory: Clear to auscultation, respirations even and unlabored on RA Gastrointestinal: Soft, non tender Genitourinary: no suprapubic tenderness Musculoskeletal: No edema. Mild tenderness in R thigh with palpation. No deformity or bruising noted. Skin: warm, dry Neuro: Alert. Strength 4/5 in LLE. 5/5 in RLE. Psych: Mood appropriate Objective Data Vital Signs Vital Signs: Vital Signs - 24 hr 02/13/25 20:05 02/13/25 20:11 02/13/25 20:15 Temperature 98 F Pulse Rate 78 83 79 Respiratory Rate 17 17 21 H Blood Pressure 148/85 H Pulse Oximetry 100 100 97 Oxygen Delivery 02/13/25 20:16 02/13/25 20:32 02/13/25 20:37 Temperature Pulse Rate 78 82 75 Respiratory Rate 13 14 14 Blood Pressure 156/76 H 109/78 Pulse Oximetry 96 92 Oxygen Delivery 02/13/25 21:43 02/13/25 21:45 02/13/25 21:47 Temperature Pulse Rate 81 77 77 Respiratory Rate 18 13 16 Blood Pressure 100/86 Pulse Oximetry 90 95 98 Oxygen Delivery 02/13/25 22:10 02/13/25 22:15 02/13/25 22:30 Temperature Pulse Rate 68 73 78 Respiratory Rate 15 18 23 H Blood Pressure Pulse Oximetry Oxygen Delivery 02/13/25 22:45 02/13/25 23:38 02/14/25 00:05 Temperature 98 F 97.2 F L Pulse Rate 83 80 Respiratory Rate 24 H 18 Blood Pressure 145/65 H Pulse Oximetry 97 Oxygen Delivery 02/14/25 01:01 02/14/25 05:40 Temperature 99.7 F H Pulse Rate 71 Respiratory Rate 18 Blood Pressure 137/63 Pulse Oximetry 96 Oxygen Delivery Room Air Intake/Output Intake/Output: Intake & Output 02/11/25 02/12/25 02/13/25 02/14/25 23:59 23:59 23:59 23:59 Intake Total 550 Output Total 1105 Balance -555 Meds/Results Medications: Active Medications Generic Name Dose Route Start Last Admin Trade Name Freq PRN Reason Stop Dose Admin Acetaminophen 650 mg 02/13/25 22:09 Acetaminophen 325 Mg Tablet PO Q4H PRN Mild Pain (1-3) or Fever Albuterol 1 puff 02/14/25 00:35 Albuterol Sulfate (*Sp) Aerosol 1 Puff INHALATION Q6HRT PRN SHORTNESS OF BREATH/WHEEZING Ferrous Sulfate 325 mg 02/14/25 09:00 Ferrous Sulfate 325 Mg Tablet PO DAILY STEFFEN Hydromorphone HCl 0.5 mg 02/13/25 22:09 02/14/25 06:48 Hydromorphone Hcl Inj (*Crx) 1 Mg/Ml Syr IV PUSH 0.5 mg Q4H PRN Administration Pain Rated 7-10 Pantoprazole Sodium 40 mg 02/14/25 09:00 Pantoprazole 40 Mg Tablet PO Q12HR STEFFEN Ropinirole HCl 1 mg 02/14/25 21:00 Ropinirole Hcl 1 Mg Tablet BY MOUTH QHS [facility] Radiology Results: ITS Impressions Head CT 02/13/25 21:18 IMPRESSION: 1. No fracture or acute intracranial process. Chest X-Ray 02/13/25 22:12 IMPRESSION: 1. No acute cardiopulmonary disease. Hip/Pelvis X-Ray 02/13/25 22:15 IMPRESSION: 1. Minimally displaced fractures of the right superior and inferior pubic rami and right pubic body. Labs Labs: Laboratory Results - last 24 hr 02/13/25 02/14/25 20:29 05:36 WBC 9.8 8.3 RBC 4.06 L 4.04 L Hgb 8.8 L 8.7 L Hct 29.0 L 29.6 L MCV 71.4 L 73.3 L MCH 21.7 L 21.5 L MCHC 30.3 L 29.4 L RDW 18.9 H 19.2 H Plt Count 274 256 MPV 9.1 9.9 Immature Gran % (Auto) 1.2 H Neut % (Auto) 69.3 Lymph % (Auto) 17.8 L [place] % (Auto) 7.2 Eos % (Auto) 4.0 Baso % (Auto) 0.5 Lymph # (Auto) 1.74 [place] # (Auto) 0.7 H Eos # (Auto) 0.4 H Baso # (Auto) 0.1 Abs Immat Gran (auto) 0.12 H Absolute Neuts (auto) 6.8 H Absolute Nucleated RBC 0.000 Band Neutrophils % Not Reportable Nucleated RBC % 0.0 Platelet Estimate Adequate Hypochromasia 1+ Microcytosis 1+ Schistocytes None seen PT 13.5 INR 1.0 Sodium 138 136 L Potassium 3.4 3.5 Chloride 105 102 Carbon Dioxide 26 30 Anion Gap 7 4 BUN 10 9 Creatinine 0.73 0.77 Estim Creat Clear Calc 76 73 Estimated GFR > 60 > 60 Glucose 98 100 Calcium 8.7 8.5 Magnesium 2.1 Total Bilirubin 0.4 AST 29 ALT 19 Alkaline Phosphatase 103 Total Protein 6.8 Albumin 3.8 Quality VTE Prophylaxis VTE prophylaxis: pharmacologic ordered
[2025-02-14] MEDS: FERROUS SULFATE 325 MG TABLET PO (08:59)
[2025-02-14] MEDS: ACETAMINOPHEN 325 MG TABLET 650 MG PO ×3 (09:00→20:26)
[2025-02-14] MEDS: PANTOPRAZOLE 40 MG TABLET PO ×2 (09:00→20:25)
[2025-02-14 09:02] LABS: Iron 39 ug/dL (37-170)
[2025-02-14 09:17] LABS: Percent Iron Saturation 10 % (20-50)
--- OUTSIDE RECORDS SUMMARY | 2025-02-14 09:20 | XMS_ITS | Encounter Summary ---
Author Organization [facility] Address [address] [place] [address] Phone Care Team Providers Care Strike Plate Attacher Name Role Phone Gabrielle Thompson MD Primary Care Provider [phone] Tasha Blakely MD Primary Care Pr ovider Shanel Ventura NP Primary Care Provider [phone] Encounter Details Date Type Department Care Team (Latest Contact Info) Description 02/08/2018 Orders Only [facility] Scanning, Provider Social History Tobacco Use Types Packs/Day Years Used Date Smoking Tobacco: Never Smokeless Tobacco: Never Comments Unknown Sex and Gender Information Value Date Recorded Sex Assigned at Not on file Legal Sex Female 9:47 AM PULLER MACHINE Gender Identity Female 04/30/2022 8:02 PM PULLER MACHINE Sexual Orientation Straight 04/30/2022 8: 02 PM PULLER MACHINE documented as of this encounter Plan of [...] on filedocumented in this encounter Care Teams Strike Plate Attacher Relationship Specialty [place] [address] [place] [address] PCP - General 02/08/18 08/15/18 Tasha Blakely MD [address] [address] PCP - General Internal Medicine 08/16/18 02/29/20 Shanel Ventura NP [address] [address] PCP - General Nurse Practitioner 03/01/20 documented as of this encounter
--- OUTSIDE RECORDS SUMMARY | 2025-02-14 09:20 | XMS_ITS | Clinical Summary ---
Author Organization [facility] Address [address] [place] [address] Care Team Providers Care Captain Room Service Name Role Phone Susana Dixon MD Primary Care Provider + Source Comments [facility],non-owned Affiliates and Associated Physician Practices is amultiple site organization consisting of ambulatory clinics and hospital sitesin [place], [place], [place] and [place]. This disclosure is being madepursuant to the Care Everywhere program and may not contain all information available regarding this patient. Last updated 18.[facility] Allergies Active Allergy Reactions Criticality Noted Date [...] on file Legal Sex Female 6:41 PM ROUGE MILLER Gender Identity Not on file Sexual Orientation [...] patient's age to complete this topic Insurance [facility] MEDICAID Care Teams Captain Room Service Relationship Specialty Start Date End Date Susana Dixon MD [address] [place] [address] PCP - General 01/22/22
--- OUTSIDE RECORDS SUMMARY | 2025-02-14 09:20 | XMS_ITS | Encounter Summary ---
Author Organization [facility] Address [facility] [place] [address] Care Team Providers Care Coffee Maker Name Role Phone Shanel Ventura Primary Care Provider + Susana Dixon MD Primary Care Provider + Encounter Details Date Type Department Care Team (Late st Contact Info) Description 11/01/2019 Lab Requisition [facility] [address] [place] [id number] Social History Tobacco Use Types Packs/Day Years Used Date Smoking Tobacco: Never Smokeless Tobacco: Never Alcohol Use Standard Drinks/Week Comments No 0 (1 standard drink = 0.6 oz pur e alcohol) Comments No Sex and Gender Information Value Date Recorded Sex Assigned at Not on file Legal Sex Female 6:41 PM STACK CLERK Gender Identity Not on file Sexual Orientation [...] Not detected, Invalid 11/01/2019 8:52 PM CDT [facility] Microbiology SPECIMEN FROM NASOPHARYNGEAL STRUCTURE / Unknown Collection / Unknown 10/31/2019 1:02 PM CDT 11/01/2019 11:59 AM CDT Narrative [facility] - 11/01/2019 8:52 PM CDT This Real Time RT-PCR assay was developed and its performance characteristics determined by [facility]. This test has been authorized [...] LAB - MICROBIOLOGY ORDERABLES Fi nal Result [facility] [address] [place], [place] [address], [facility] [phone] documented in this encounter Visit Diagnoses Not on filedocumented in this encounter Additional Health Concerns Infection Onset Date Last Indicated Resolved Time COVID-19 Under Investigation 10/31/2019 10/31/2019 11/01/2019 8:52 PM CDT documented as of this encounter Care Teams Coffee Maker Relationship Specialty Start Date End Date Shanel Ventura APRN-ROWENA [address] [address] PCP - General Nurse Practitioner 04/27/19 01/21/22 Susana Dixon MD [address] [place] [address] PCP - General 01/22/22 documented as of this encounter
--- OUTSIDE RECORDS SUMMARY | 2025-02-14 09:21 | XMS_ITS | Clinical Summary ---
Author Organization [facility] Address [address], [address] [address] Phone Care Team Providers Care Remediation Project Engineer Name Role Phone Bridgervitaly Shanel Louise ALMONTE Primary Care Provider [phone] Social History Tobacco Use Types Packs/Day Years [...] this topic Insurance MEDICAID [place] Care Teams Remediation Project Engineer Relationship Specialty Start Date End Date Shanel Ventura APRN PCP - General Advanced Practice Nurse 11/29/20
--- OUTSIDE RECORDS SUMMARY | 2025-02-14 09:21 | XMS_ITS | Clinical Summary ---
Author Organization [facility] [address] Address [address] [place] [address] Care Team Providers Care Psychological Anthropologist Name Role Phone Shanel Ventura NP Primary Care Provider [phone] Allergies Active Allergy Reactions Criticality Noted Date [...] on file Legal Sex Female 9:47 AM SWIMMING POOL INSTALLER Gender Identity Female 04/30/2022 8:02 PM SWIMMING POOL INSTALLER Sexual Orientation Straight 04/30/2022 8: 02 PM SWIMMING POOL INSTALLER Obstetrics History Last Filed Vital Signs Vital [...] breast ultrasound was performed by a trained superintendent greens. BREAST PARENCHYMAL COMPOSITION: There are scattered areas [...] breast ultrasound was performed by a trained superintendent greens. BREAST PARENCHYMAL COMPOSITION: There are scattered areas [...] by: Carrie Acosta M.D. us Carlota Morris [facility] HAND IMG MAMMO PROCEDURES Final R esult * Serum Hepatitis panel (12/08/2015 3:27 PM CDT) HAV ab, IgM Negative Negative CDR HIST ORICAL RESULTS HBV core ab, IgM Negative Negative CDR HISTORICAL RESULTS HBV surface ag Negative Negative CDR H ISTORICAL RESULTS Comment:Test performed at [facility], [address] [place] [address], [place]., [address] HCV ab Negative Negative CDR HISTOR ICAL RESULTS Serum 12/08/2015 3:27 PM CDT us Traci Crabtree MD LAB BLOOD ORDERABLES Final Resul t CDR HISTORICAL RESULTS from Last 3 Months or Most Recently Relevant to Health Maintenance Insurance [facility] [id number] [place] [address] Care Teams Psychological Anthropologist Relationship Specialty Start Date End Date Shanel Ventura NP [facility] [place] [address] PCP - General Nurse Practitioner 03/01/20
--- OUTSIDE RECORDS SUMMARY | 2025-02-14 09:21 | XMS_ITS | Clinical Summary ---
Author Organization [facility] Address [address] [place] [address] Care Team Providers Care Clinical Trainer Name Role Phone Zain Garnett MD Unavailable [phone] None, Provider MD Primary Care Provider [...] 07/04/2018 Assessment & Plan (07/04/2018 8:08 AM HEALTH POLICY NURSE): Suspect lipoma but given tenderness and her concern will get US Acute cystitis without hematuria 07/04/2018 Assessment & Plan (07/04/2018 8:10 AM HEALTH POLICY NURSE): Suspect some of her residual symptoms 2/2 to antibiotic as should be treated. She will see how she feels after completing Pernicious anemia 01/04/2018 Paroxysmal atrial fibrillati on with rapid ventricular response ([facility]) 12/18/2017 Obesity (BMI 30.0-34.9) 12/18/2017 ZULEMA (obstructive sleep apnea) 12/18/2017 GERD (gastroesophageal reflux disease) 8 Neck pain, chronic 08/17/2017 Anxiety 08/05/2017 Assessment & Plan (07/04/2018 8:09 AM HEALTH POLICY NURSE): Needs refill. Currently controlled on the fluoxetine 60mg BRCA1 positive 08/05/2017 Fatty liver disease, nonalcoholic 08/05/2017 Fibromyalgia 08/05/2017 Herniation of intervertebral disc 08/05/2017 Herpes zoster 08/05/2017 Migraines 08/05/2017 Rheumatoid arthritis ([facility]) 8 Resolved Problems Problem Noted [...] Health Maintenance Insurance [employer] MEDICAID Care Teams Clinical Trainer Relationship Specialty Start Date End Date None, Provider, PCP - General UNKNOWN PHYSICIAN SPECIALTY 07/08/23 Zain Garnett MD [address] [facility] [address] [place] [address] Marquita Electrical Plumbing Supervisor CARDIOVASCULAR DISEASE 12/17/17
--- OUTSIDE RECORDS SUMMARY | 2025-02-14 09:21 | XMS_ITS | Clinical Summary ---
Author Organization [facility] Address [address] [place] [address] Phone Care Team Providers Care Cognos Name Role Phone Beena Owen MD Primary [...] daily. 180 Tablet 3 07/10/2024 7:52 PM HOSPITAL UNIT CLERK 4 Active DULoxetine (CYMBALTA) 60 mg Capsule, Delayed Release(E.C.) Take 1 Capsule (60 mg) by mouth daily. 90 Capsule 3 07/10/2024 7:52 PM HOSPITAL UNIT CLERK 4 Active omeprazole (PriLOSEC) 40 mg Capsule, Delayed Release(E.C.) Take 1 Capsule (40 mg) by mouth daily. 90 Capsule 1 07/10/2024 7:52 PM HOSPITAL UNIT CLERK 4 Active ergocalciferol (Vitamin D2) 50,000 unit capsuleIndicat ions:Vitamin D deficiency TAKE 1 CAPSULE BY MOUTH EVERY WEEK (every 7 days) 12 Capsule 07/10/2024 7:52 PM HOSPITAL UNIT CLERK 4 Active rOPINIRole (REQUIP) 4 mg Tablet Take 1 Tablet (4 mg) by mouth daily at bedtime. 90 Tablet 3 5 Active traZODone (DESYREL) 100 mg tablet Take 1 Tablet (100 mg) by mouth daily at bedtime. 90 Tablet 3 07/10/2024 7:52 PM HOSPITAL UNIT CLERK 5 Active cyanocobalamin (VITAMIN B-12) 1,000 mcg/mL SolutionIndica tions:Vitamin B12 deficiency (non anemic) INJECT 1000 MCG SUBCUTANEOUSLY ONCE A WEEK FOR 4 WEEKS, FOLLOWED BY ONCE A MONTH FOR 4 MONTHS 8 mL 1 07/10/2024 7:52 PM HOSPITAL UNIT CLERK 5 Active Syringe with Needle, Disp, (BD Luer-Kesha Syringe) 3 mL 25 gauge x 1 SyringeIndicat ions:Vitamin B12 deficiency (non anemic) Use as directed to administer b12 (cyaocobalamin). 8 Each 07/10/2024 7:52 PM HOSPITAL UNIT CLERK 5 Active tiZANidine (ZANAFLEX) 4 mg Tablet Take 1 Tablet (4 mg) by mouth every 6 hours as needed for spasms 30 Tablet 1 07/10/2024 7:52 PM HOSPITAL UNIT CLERK 5 Active Active Problems Problem Noted Date [...] COVID-19 VACCINE - EMERGENCY USE AUTHORIZATION, MRNA, [id number](PF) 30 MCG/0.3 ML IM SUSP 08/20/2020 INFLUENZA VACCINE QUADRIVALENT 6 MOS UP PF IM ,03/14/2020 Family History Medical History Relation Name Comments Depression Father Mauricio Diabetes Father [place] Heart Disease Father Mauricio High Cholesterol Father [place] Hypertension Father [place] Respiratory Disease Father [place] COPD Breast Cancer Mother Vero Osorio Osteoporosis [...] 81.6 kg (180 lb) 03/23/2024 8:25 AM HOSPITAL UNIT CLERK Height 167.6 cm (5' 6) 03/23/2024 8:25 AM HOSPITAL UNIT CLERK Body Mass Index 29.05 03/23/2024 8:25 AM HOSPITAL UNIT CLERK Plan of Treatment Health Maintenance Due Date [...] T d or Tdap) 09/07/2028 09/07/2018 Insurance [facility] Address[facility] [address] [place] [address] RX [employer] (INTERNAL) [facility] RX [employer] RX Member Subscriber Plan / Payer (Ef fective 2024-Present) Name:Anayeli Carranza Relation to Subscriber:Self Name:Anayeli Carranza Subscriber ID:Not on file Payer ID:Not on file Group ID:[facility] Type:RX Commercial Address: [address] Care Teams Cognos Relationship Specialty [place] [address] [facility] [address] [place] [id number] PCP - General Family Practice 11/03/23
--- OUTSIDE RECORDS SUMMARY | 2025-02-14 09:21 | XMS_ITS | Patient Health Record ---
Author Organization [facility] Address [address] [place] [address] Care Team Providers Care Fur Repairer Name Role Phone Jairon Hall Unavailable [phone] Reason For Referral No Information Medications Medication SIG (Take, Route, Frequency, Duration) Notes Start Date End Date Status Prevalite 4 gram Packet Oral *Pick strength-form from The Original [employer] for eRX* Active Aspirin Adult Low Strength [...] End Date Bcbs-I l Ppo [address] [place] [address] [id number] ALEJANDRA CARRANZA Spouse - patient is the spouse of the insured
[2025-02-14 09:43] LABS: Ferritin 7.48 ng/mL (11.1-264)
[2025-02-14 11:47] VITALS: O2SAT 96
[2025-02-14 14:00] VITALS: BP 117/61; PULSE 80; RESP 18; TEMP 36.6; O2SAT 100
[2025-02-14] MEDS: oxyCODONE HCL (*CRX) 5 MG TAB IR PO ×2 (16:28→23:21)
[2025-02-14] MEDS: ENOXAPARIN 40 MG/0.4 ML SYRINGE SUB-Q (16:30)
[2025-02-14] MEDS: HYDROmorphone HCL INJ (*CRX) 1 MG/ML SYR (19:28)
[2025-02-14 20:11] VITALS: BP 116/67; PULSE 81; RESP 18; TEMP 36.8; O2SAT 95
[2025-02-15] MEDS: ACETAMINOPHEN 325 MG TABLET 650 MG PO ×4 (03:06→20:03)
[2025-02-15] MEDS: oxyCODONE HCL (*CRX) 5 MG TAB IR PO ×3 (03:06→16:49)
[2025-02-15 05:13] VITALS: BP 136/70; PULSE 83; RESP 16; TEMP 36.2; O2SAT 97
[2025-02-15 06:45] LABS: Hematocrit 29.2 % (37.0-47.0); Hemoglobin 8.6 g/dL (12.0-15.0); Immature Granulocyte Percent A 0.3 % (0-0.5); Lymphocytes Absolute Auto 1.16 K/mm3 (0.9-3.2); Mean Corpuscular HGB Conc 29.5 g/dl (32-36); Mean Corpuscular Hemoglobin 21.6 pg (26-34); Mean Corpuscular Volume 73.2 fl (80-100); Nucleated Red Blood Cells Absolute Auto 0.000 K/mm3 (0.0-0.012); Nucleated Red Blood Cells Perc 0.0 % (0.0-0.2); Platelet Count Result 247 k/mm3 (150-375); Red Blood Count 3.99 M/mm3 (4.2-5.4); White Blood Count 9.8 K/mm3 (4.5-10.0)
[2025-02-15 06:58] LABS: Anion Gap 4 mmol/L (4-12); Blood Urea Nitrogen 6 mg/dL (7-17); Calcium 8.4 mg/dL (8.4-10.2); Carbon Dioxide 28 mmol/L (22-30); Chloride 102 mmol/L (98-107); Estimated CRCL calculation 78 ml/min; Estimated Glomerular Filt Rate > 60; Glucose 113 mg/dL (65-110); Potassium 3.4 mmol/L (3.4-5.0); Sodium 134 mmol/L (137-145)
[2025-02-15 07:32] LABS: Anisocytosis 1+; Hypochromasia 1+; Schistocytes None Seen; Target Cells Occasional
--- NOTE | 2025-02-15 07:58 | P.PNIM_ITS ---
Progress Note: A&P Assessment and Plan (1) Closed fracture of pubic ramus: Qualifiers: Encounter type: initial encounter Laterality: right Qualified Code(s): S32.591A - Other specified fracture of right pubis, initial encounter for closed fracture Code(s): S32.599A - Other specified fracture of unspecified pubis, initial encounter for closed fracture Status: Acute Assessment and Plan: * presented with mechanical fall * hip and right pelvis x-ray demonstrating minimally displaced fractures of the right superior and inferior pubic rami and right pubic body. * orthopedic surgery consulted: * D/C to SNF/rehab * Xray and follow up in office in approximately 6 weeks. * PT: WBAT with a walker. * DVT prophylaxis: continue Lovenox for 30 days total * continue pain control * PT/OT - SNF (2) Anxiety and depression: Code(s): F41.9 - Anxiety disorder, unspecified; F32.A - Depression, unspecified Status: Acute Assessment and Plan: * continue home trazodone (3) Fall: Code(s): W19.XXXA - Unspecified fall, initial encounter Status: Acute Assessment and Plan: * She reports she got out of her car and someone put a garbage can there so she fell and hit her head on the door and then fell on her right buttock and right hip. * CT head with no acute process * CXR no acute process * PT/OT (4) Iron deficiency anemia: Code(s): D50.9 - Iron deficiency anemia, unspecified Status: Acute Assessment and Plan: * Hgb 8.8 on admit, stable this AM. Denied signs of bleeding. * has prior history of iron deficiency anemia. Reports remote history of colonoscopy with polyps, but hasn't had a scope since due to losing insurance. Strongly encouraged close outpatient follow-up for repeat colonoscopy. * started on iron supplement on admission. Monitor CBC. Transfuse Hgb <7. Plan Code status: full code DVT prophylaxis: Lovenox Dispo: TBD pending PT/OT Subjective Date/time seen: 02/15/25 07:58 Interval history: 64-year-old female with PMH COVID and RSV with residual shortness of breath, anxiety and depression, hyperlipidemia, fibromyalgia, hypertension, iron deficiency anemia, vitamin B12 deficiency, vitamin-D deficiency presents to [facility] ER on 02/13/2025 after a fall. 02/15/2025 Patient sitting comfortably in bed at time examination. Denies any chest pain, shortness of breath, nausea/vomiting or abdominal pain. Ortho saw patient this morning, agree with discharge to SNF/rehab with repeat x-ray in follow-up in the office in 4-6 weeks. WBAT with walker. Review of Systems Review of Systems: All systems reviewed & are unremarkable except as noted in HPI and below (Subjective) Exam Narrative: General: NAD Eyes: EOMI ENT: neck supple Cardiovascular: Regular rate and rhythm Respiratory: Clear to auscultation, respirations even and unlabored on RA Gastrointestinal: Soft, non tender Genitourinary: no suprapubic tenderness Musculoskeletal: No edema. Mild tenderness in R thigh with palpation. No deformity or bruising noted. Skin: warm, dry Neuro: Alert. Strength 4/5 in LLE. 5/5 in RLE. Psych: Mood appropriate Const: General: comfortable and no acute distress Other: A&O x3, pleasant and cooperative Eyes: Pupils: Equal, round and reactive pupils present Neck: Neck: supple Resp: Effort & Inspection: normal respiratory effort Auscultation: clear to auscultation bilaterally Cardio: Rate: regular rate Rhythm: regular rhythm Heart sounds: no gallops, no murmurs and no rubs GI: Inspection: non-distended : General: Yes bladder normal to palpation Bimanual exam- vagina & uterus: bladder normal to palpation Neuro: Cranial nerves: Yes Equal, round and reactive pupils present Other: Right lower extremity flexion at the hip limited by severe pain, otherwise motor function and sensation intact. Extrem: General: no edema Objective Data Vital Signs Vital Signs: Vital Signs - 24 hr 02/14/25 11:47 02/14/25 14:00 02/14/25 20:11 Temperature 97.9 F 98.2 F Pulse Rate 80 81 Respiratory Rate 18 18 Blood Pressure 117/61 116/67 Pulse Oximetry 96 100 95 Oxygen Delivery Room Air 02/15/25 05:13 Temperature 97.2 F L Pulse Rate 83 Respiratory Rate 16 Blood Pressure 136/70 Pulse Oximetry 97 Oxygen Delivery Intake/Output Intake/Output: Intake & Output 02/12/25 02/13/25 02/14/25 02/15/25 23:59 23:59 23:59 23:59 Intake Total 1750 Output Total 2305 Balance -555 Meds/Results Medications: Active Medications Generic Name Dose Route Start Last Admin Trade Name Freq PRN Reason Stop Dose Admin Acetaminophen 650 mg 02/14/25 09:00 02/15/25 03:06 Acetaminophen 325 Mg Tablet PO 650 mg Q6H STEFFEN Administration Albuterol 1 puff 02/14/25 00:35 Albuterol Sulfate (*Sp) Aerosol 1 Puff INHALATION Q6HRT PRN SHORTNESS OF BREATH/WHEEZING Enoxaparin Sodium 40 mg 02/14/25 13:25 02/14/25 16:30 Enoxaparin 40 Mg/0.4 Ml Syringe SUB-Q 40 mg DAILY STEFFEN Administration Ferrous Sulfate 325 mg 02/14/25 09:00 02/14/25 08:59 Ferrous Sulfate 325 Mg Tablet PO 325 mg DAILY STEFFEN Administration Hydromorphone HCl 0.5 mg 02/14/25 18:29 Hydromorphone Hcl Inj (*Crx) 1 Mg/Ml Syr IV PUSH Q3HR PRN Breakthrough Pain Ondansetron HCl 4 mg 02/14/25 12:45 Ondansetron Inj 4 Mg/2 Ml Vial IV PUSH Q6H PRN Nausea And Vomiting Oxycodone HCl 5 mg 02/14/25 11:23 02/15/25 03:06 Oxycodone Hcl (*Crx) 5 Mg Tab Ir PO 5 mg Q4H PRN Administration Pain Rated 7-10 Oxycodone HCl 2.5 mg 02/14/25 15:27 Oxycodone Hcl (*Crx) 2.5 Mg Tab Ir PO Q4H PRN Pain Rated 4-6 Pantoprazole Sodium 40 mg 02/14/25 09:00 02/14/25 20:25 Pantoprazole 40 Mg Tablet PO 40 mg Q12HR STEFFEN Administration Ropinirole HCl 1 mg 02/14/25 11:25 02/14/25 16:27 Ropinirole Hcl 1 Mg Tablet BY MOUTH 1 mg BID STEFFEN Administration Radiology Results: ITS Impressions Head CT 02/13/25 21:18 IMPRESSION: 1. No fracture or acute intracranial process. Chest X-Ray 02/13/25 22:12 IMPRESSION: 1. No acute cardiopulmonary disease. Hip/Pelvis X-Ray 02/13/25 22:15 IMPRESSION: 1. Minimally displaced fractures of the right superior and inferior pubic rami and right pubic body. Femur X-Ray 02/14/25 13:06 Impression: No acute fracture or malalignment. Labs Labs: Laboratory Results - last 24 hr 02/14/25 02/15/25 05:36 06:35 WBC 9.8 RBC 3.99 L Hgb 8.6 L Hct 29.2 L MCV 73.2 L MCH 21.6 L MCHC 29.5 L RDW 19.3 H Plt Count 247 MPV 9.4 Immature Gran % (Auto) 0.3 Neut % (Auto) 77.5 H Lymph % (Auto) 11.9 L [place] % (Auto) 7.5 Eos % (Auto) 2.4 Baso % (Auto) 0.4 Lymph # (Auto) 1.16 [place] # (Auto) 0.7 H Eos # (Auto) 0.2 Baso # (Auto) 0.0 Abs Immat Gran (auto) 0.03 Absolute Neuts (auto) 7.6 H Absolute Nucleated RBC 0.000 Band Neutrophils % Not Reportable Nucleated RBC % 0.0 Platelet Estimate Adequate Hypochromasia 1+ Anisocytosis 1+ Target Cells Occasional Schistocytes None seen Sodium 134 L Potassium 3.4 Chloride 102 Carbon Dioxide 28 Anion Gap 4 BUN 6 L Creatinine 0.71 Estim Creat Clear Calc 78 Estimated GFR > 60 Glucose 113 H Calcium 8.4 Iron 39 TIBC 409 % Saturation 10 L Ferritin 7.48 L Quality VTE Prophylaxis VTE prophylaxis: pharmacologic ordered
[2025-02-15] MEDS: ENOXAPARIN 40 MG/0.4 ML SYRINGE SUB-Q (08:48)
[2025-02-15] MEDS: PANTOPRAZOLE 40 MG TABLET PO ×2 (08:48→20:03)
[2025-02-15] MEDS: FERROUS SULFATE 325 MG TABLET PO (08:48)
--- NOTE | 2025-02-15 08:50 | P.PNOP_ITS ---
Progress Note: A&P Assessment and Plan (1) Closed fracture of pubic ramus: Qualifiers: Encounter type: initial encounter Laterality: right Qualified Code(s): S32.591A - Other specified fracture of right pubis, initial encounter for closed fracture Code(s): S32.599A - Other specified fracture of unspecified pubis, initial encounter for closed fracture Status: Acute Assessment and Plan: Superior and inferior pelvic rami fractures. Patient fell over a bad of garbage. Typically ambulates without assistance. Has support at home. Can be treated conservatively. Patient may weight bear as tolerated and start PT/OT. She will start therapy today. Awaiting recommendations. She may not be able to tolerate much initially. Will take 6-8 weeks for healing. May benefit from SNF/Rehab. Patient is more agreeable to Rehab today. Tolerating Oxycodone. Ortho instructions: * D/C to SNF/rehab or home with home health if doing well with PT/OT. * Xray and follow up in office in approximately 4-6 weeks. * PT: WBAT with a walker. * DVT prophylaxis: continue Lovenox for 30 days total * Pain medication: Oxycodone. Subjective Subjective Date/Time Seen: 02/15/25 08:50 Interval history: Patient resting comfortably. Denies pain today. Notes uncomfortable and inability to bear weight. She is realizing that SNF/Rehab might be a better fit for discharge. She will work with PT/OT today. No numbness or tingling. Review of Systems Review of Systems: All systems reviewed & are unremarkable except as noted in HPI and below Exam Narrative: Normal weight 64 y/o female. Resting comfortably. Resting in bed. No edema. No ecchymosis. No erythema. Mild pain at the right pelvis. No hematoma. Range of motion limited due to pain. Calf nontender. Thigh nontender. No varicosities. Distal pulses palpable. Wiggles toes. Objective Data Vital Signs Vital Signs: Vital Signs - 24 hr 02/14/25 11:47 02/14/25 14:00 02/14/25 20:11 Temperature 97.9 F 98.2 F Pulse Rate 80 81 Respiratory Rate 18 18 Blood Pressure 117/61 116/67 Pulse Oximetry 96 100 95 Oxygen Delivery Room Air 02/15/25 05:13 Temperature 97.2 F L Pulse Rate 83 Respiratory Rate 16 Blood Pressure 136/70 Pulse Oximetry 97 Oxygen Delivery Intake/Output Intake/Output: Intake & Output 02/12/25 02/13/25 02/14/25 02/15/25 23:59 23:59 23:59 23:59 Intake Total 1750 Output Total 2305 Balance -555 Meds/Results Medications: Active Medications Generic Name Dose Route Start Last Admin Trade Name Freq PRN Reason Stop Dose Admin Acetaminophen 650 mg 02/14/25 09:00 02/15/25 08:48 Acetaminophen 325 Mg Tablet PO 650 mg Q6H STEFFEN Administration Albuterol 1 puff 02/14/25 00:35 Albuterol Sulfate (*Sp) Aerosol 1 Puff INHALATION Q6HRT PRN SHORTNESS OF BREATH/WHEEZING Enoxaparin Sodium 40 mg 02/14/25 13:25 02/15/25 08:48 Enoxaparin 40 Mg/0.4 Ml Syringe SUB-Q 40 mg DAILY STEFFEN Administration Ferrous Sulfate 325 mg 02/14/25 09:00 02/15/25 08:48 Ferrous Sulfate 325 Mg Tablet PO 325 mg DAILY STEFFEN Administration Hydromorphone HCl 0.5 mg 02/14/25 18:29 Hydromorphone Hcl Inj (*Crx) 1 Mg/Ml Syr IV PUSH Q3HR PRN Breakthrough Pain Ondansetron HCl 4 mg 02/14/25 12:45 Ondansetron Inj 4 Mg/2 Ml Vial IV PUSH Q6H PRN Nausea And Vomiting Oxycodone HCl 5 mg 02/14/25 11:23 02/15/25 08:47 Oxycodone Hcl (*Crx) 5 Mg Tab Ir PO 5 mg Q4H PRN Administration Pain Rated 7-10 Oxycodone HCl 2.5 mg 02/14/25 15:27 Oxycodone Hcl (*Crx) 2.5 Mg Tab Ir PO Q4H PRN Pain Rated 4-6 Pantoprazole Sodium 40 mg 02/14/25 09:00 02/15/25 08:48 Pantoprazole 40 Mg Tablet PO 40 mg Q12HR STEFFEN Administration Ropinirole HCl 1 mg 02/14/25 11:25 02/15/25 08:48 Ropinirole Hcl 1 Mg Tablet BY MOUTH 1 mg BID STEFFEN Administration Radiology Results: ITS Impressions Head CT 02/13/25 21:18 IMPRESSION: 1. No fracture or acute intracranial process. Chest X-Ray 02/13/25 22:12 IMPRESSION: 1. No acute cardiopulmonary disease. Hip/Pelvis X-Ray 02/13/25 22:15 IMPRESSION: 1. Minimally displaced fractures of the right superior and inferior pubic rami and right pubic body. Femur X-Ray 02/14/25 13:06 Impression: No acute fracture or malalignment. Labs Labs: Laboratory Results - last 24 hr 02/14/25 02/15/25 05:36 06:35 WBC 9.8 RBC 3.99 L Hgb 8.6 L Hct 29.2 L MCV 73.2 L MCH 21.6 L MCHC 29.5 L RDW 19.3 H Plt Count 247 MPV 9.4 Immature Gran % (Auto) 0.3 Neut % (Auto) 77.5 H Lymph % (Auto) 11.9 L [place] % (Auto) 7.5 Eos % (Auto) 2.4 Baso % (Auto) 0.4 Lymph # (Auto) 1.16 [place] # (Auto) 0.7 H Eos # (Auto) 0.2 Baso # (Auto) 0.0 Abs Immat Gran (auto) 0.03 Absolute Neuts (auto) 7.6 H Absolute Nucleated RBC 0.000 Band Neutrophils % Not Reportable Nucleated RBC % 0.0 Platelet Estimate Adequate Hypochromasia 1+ Anisocytosis 1+ Target Cells Occasional Schistocytes None seen Sodium 134 L Potassium 3.4 Chloride 102 Carbon Dioxide 28 Anion Gap 4 BUN 6 L Creatinine 0.71 Estim Creat Clear Calc 78 Estimated GFR > 60 Glucose 113 H Calcium 8.4 Iron 39 TIBC 409 % Saturation 10 L Ferritin 7.48 L
[2025-02-15 13:42] VITALS: BP 133/57; PULSE 83; RESP 14; TEMP 36.6; O2SAT 99
[2025-02-15 20:15] VITALS: BP 130/78; PULSE 74; RESP 18; TEMP 36.1; O2SAT 100
[2025-02-15] MEDS: oxyCODONE HCL (*CRX) 2.5 MG TAB IR PO (21:53)
[2025-02-16] MEDS: oxyCODONE HCL (*CRX) 2.5 MG TAB IR PO (03:25)
[2025-02-16 05:00] VITALS: BP 128/61; PULSE 71; RESP 18; TEMP 36.1; O2SAT 98
[2025-02-16 06:04] LABS: Hematocrit 29.6 % (37.0-47.0); Hemoglobin 8.8 g/dL (12.0-15.0); Immature Granulocyte Percent A 0.3 % (0-0.5); Lymphocytes Absolute Auto 1.18 K/mm3 (0.9-3.2); Mean Corpuscular HGB Conc 29.7 g/dl (32-36); Mean Corpuscular Hemoglobin 21.9 pg (26-34); Mean Corpuscular Volume 73.8 fl (80-100); Nucleated Red Blood Cells Absolute Auto 0.000 K/mm3 (0.0-0.012); Nucleated Red Blood Cells Perc 0.0 % (0.0-0.2); Platelet Count Result 256 k/mm3 (150-375); Red Blood Count 4.01 M/mm3 (4.2-5.4); White Blood Count 9.3 K/mm3 (4.5-10.0)
[2025-02-16 06:25] LABS: Anion Gap 4 mmol/L (4-12); Blood Urea Nitrogen 7 mg/dL (7-17); Calcium 8.5 mg/dL (8.4-10.2); Carbon Dioxide 32 mmol/L (22-30); Chloride 102 mmol/L (98-107); Estimated CRCL calculation 72 ml/min; Estimated Glomerular Filt Rate > 60; Glucose 104 mg/dL (65-110); Sodium 138 mmol/L (137-145)
[2025-02-16 06:31] LABS: Anisocytosis 1+; Hypochromasia 1+; Schistocytes None Seen
[2025-02-16 06:35] LABS: Potassium 3.9 mmol/L (3.4-5.0)
[2025-02-16] MEDS: ACETAMINOPHEN 325 MG TABLET 650 MG PO (09:22)
[2025-02-16] MEDS: ENOXAPARIN 40 MG/0.4 ML SYRINGE SUB-Q (09:22)
[2025-02-16] MEDS: oxyCODONE HCL (*CRX) 5 MG TAB IR PO (09:22)
[2025-02-16] MEDS: PANTOPRAZOLE 40 MG TABLET PO (09:22)
[2025-02-16] MEDS: FERROUS SULFATE 325 MG TABLET PO (09:22)
[2025-02-16] MEDS: ONDANSETRON INJ 4 MG/2 ML VIAL IV PUSH (10:57)
--- NOTE | 2025-02-16 12:50 | P.DS_ITS ---
DS: Admitting Diagnosis Discharge Date 02/16/2025 Admitting Diagnosis Closed fracture of pubic ramus DS: Discharge Diagnosis Discharge Diagnosis (1) Closed fracture of pubic ramus: Qualifiers: Encounter type: initial encounter Laterality: right Qualified Code(s): S32.591A - Other specified fracture of right pubis, initial encounter for closed fracture Code(s): S32.599A - Other specified fracture of unspecified pubis, initial encounter for closed fracture Status: Acute Assessment and Plan: * presented with mechanical fall * hip and right pelvis x-ray demonstrating minimally displaced fractures of the right superior and inferior pubic rami and right pubic body. * orthopedic surgery consulted: * D/C to SNF/rehab * Xray and follow up in office in approximately 6 weeks. * PT: WBAT with a walker. * DVT prophylaxis: continue Lovenox for 30 days total * continue pain control * PT/OT - SNF (2) Anxiety and depression: Code(s): F41.9 - Anxiety disorder, unspecified; F32.A - Depression, unspecified Status: Acute Assessment and Plan: * continue home trazodone (3) Fall: Code(s): W19.XXXA - Unspecified fall, initial encounter Status: Acute Assessment and Plan: * She reports she got out of her car and someone put a garbage can there so she fell and hit her head on the door and then fell on her right buttock and right hip. * CT head with no acute process * CXR no acute process * PT/OT (4) Iron deficiency anemia: Code(s): D50.9 - Iron deficiency anemia, unspecified Status: Acute Assessment and Plan: * Hgb 8.8 on admit, stable this AM. Denied signs of bleeding. * has prior history of iron deficiency anemia. Reports remote history of colonoscopy with polyps, but hasn't had a scope since due to losing insurance. Strongly encouraged close outpatient follow-up for repeat colonoscopy. * started on iron supplement on admission. Monitor CBC. Transfuse Hgb <7. Plan Code status: full code DVT prophylaxis: Lovenox Dispo: TBD pending PT/OT DS: Summary Hospital Course Reason for hospitalization: Fall Hospital Course: Per HPI: 64-year-old female with PMH COVID and RSV with residual shortness of breath, anxiety and depression, hyperlipidemia, fibromyalgia, hypertension, iron deficiency anemia, vitamin B12 deficiency, vitamin-D deficiency presents to [facility] ER on 02/13/2025 after a fall. She reports she got out of her car and someone put a garbage can there so she fell and hit her head on the door and then fell on her right buttock and right hip. Complained of pain. ER evaluation demonstrated a comfortable female with stable vital signs, hemoglobin 8.8, slightly lower than her baseline of 10, MCV 71.4, Chem 7 panel and LFTs within normal limits. Head CT no acute findings, hip and right pelvis x-ray demonstrating minimally displaced fractures of the right superior and inferior pubic rami and right pubic body. Patient was given Zofran, Dilaudid. She reportedly has a allergy to hydrocodone with hallucinations and anaphylaxis with morphine but she tolerated Dilaudid well. Orthopedics consulted regarding close fracture of the pubic ramus. Patient had a mechanical fall but typically ambulates without assistance. Orthopedics agrees for conservative treatment, no surgical intervention indicated at this time. Recommend weight-bearing as tolerated with a walker and continuing PT/OT. Originally was going to work with [facility] regarding SNF placement, however patient and family are adamant about wanting to be discharged home. Set up home with home health services and patient is otherwise hemodynamically stable to be discharged at safely this time. Will discharge with oxycodone. Patient is amenable to this plan. Status at Discharge Functional status at discharge: uses cane/walker Overall status at discharge: patient is progressing back to baseline Time Spent with Patient Time attestation: Total time spent providing and/or coordinating discharge services: 32 Exam Narrative: General: NAD Eyes: EOMI ENT: neck supple Cardiovascular: Regular rate and rhythm Respiratory: Clear to auscultation, respirations even and unlabored on RA Gastrointestinal: Soft, non tender Genitourinary: no suprapubic tenderness Musculoskeletal: No edema. Mild tenderness in R thigh with palpation. No deformity or bruising noted. Skin: warm, dry Neuro: Alert. Strength 4/5 in LLE. 5/5 in RLE. Psych: Mood appropriate Const: General: comfortable and no acute distress Other: A&O x3, pleasant and cooperative Eyes: Pupils: Equal, round and reactive pupils present Neck: Neck: supple Resp: Effort & Inspection: normal respiratory effort Auscultation: clear to auscultation bilaterally Cardio: Rate: regular rate Rhythm: regular rhythm Heart sounds: no gallops, no murmurs and no rubs GI: Inspection: non-distended : General: Yes bladder normal to palpation Bimanual exam- vagina & nat rena: bladder normal to palpation Neuro: Cranial nerves: Yes Equal, round and reactive pupils present Other: Right lower extremity flexion at the hip limited by severe pain, otherwise motor function and sensation intact. Extrem: General: no edema DS: Data Data Completed and Pending Labs on day of discharge: Labs from last 24 hours 02/16/25 05:43 WBC 9.3 RBC 4.01 L Hgb 8.8 L Hct 29.6 L MCV 73.8 L MCH 21.9 L MCHC 29.7 L RDW 19.6 H Plt Count 256 MPV 9.7 Immature Gran % (Auto) 0.3 Neut % (Auto) 75.8 H Lymph % (Auto) 12.7 L Pondera % (Auto) 8.0 Eos % (Auto) 2.9 Baso % (Auto) 0.3 Lymph # (Auto) 1.18 Pondera # (Auto) 0.7 H Eos # (Auto) 0.3 Baso # (Auto) 0.0 Abs Immat Gran (auto) 0.03 Absolute Neuts (auto) 7.0 H Absolute Nucleated RBC 0.000 Band Neutrophils % Not Reportable Nucleated RBC % 0.0 Platelet Estimate Adequate Hypochromasia 1+ Anisocytosis 1+ Schistocytes None seen Sodium 138 Potassium 3.9 Chloride 102 Carbon Dioxide 32 H Anion Gap 4 BUN 7 Creatinine 0.78 Estim Creat Clear Calc 72 Estimated GFR > 60 Glucose 104 Calcium 8.5 Discharge Plan Discharge Attending physician on discharge: Isaac Zamorano Oca Consulting providers: Melinda Lopez; Alexei Painter; Dani Mccallum Discharging Clinician: Alexei Painter Anticipated Discharge Date/Time: 02/16/25 12:48 Patient Disposition: Home with Home Health Service Activity: as tolerated Diet: regular Discharge Instructions: Per Care Coordination: Patient to have [facility] for RN/PT/OT eval and treat. [phone]. They will contact patient to schedule first visit. Ortho instructions: * D/C to home health. * Xray and follow up in office in approximately 4-6 weeks. Please call office for appointment details. [facility] * PT: WBAT with a walker. * DVT prophylaxis: continue Lovenox for 30 days total * Pain medication: Oxycodone. Patient Instructions: Antibiotic Form Patient Language: Greek Stand Alone Forms: General Discharge Information Follow-up/Referrals: Dani Mccallum MD [Physician, Orthopedics] Angelic Cullen PA-C [Primary Care Provider, Family Practice] Discharge Medications: New oxycodone 5 mg tablet 5 mg PO Q6H PRN (Reason: pain) Qty: 6 0RF Continued gabapentin 600 mg tablet 600 mg PO Q12H omeprazole 40 mg capsule,delayed release(DR/EC) 40 mg PO DAILY Qty: 90 3RF tizanidine 4 mg capsule 4 mg PO QHS Qty: 90 3RF trazodone 100 mg tablet See Rx Instructions .ROUTE .COMPLEX Qty: 90 3RF Dose Instruction: TAKE 1 TABLET BY MOUTH EVERY DAY AT BEDTIME NEEDED FOR INSOMNIA Rx Instructions: TAKE 1 TABLET BY MOUTH EVERY DAY AT BEDTIME NEEDED FOR INSOMNIA albuterol sulfate 90 mcg/actuation HFA aerosol inhaler See Rx Instructions .ROUTE .COMPLEX Qty: 6.7 3RF Dose Instruction: INHALE 1 PUFF BY MOUTH 4 TIMES A DAY NEEDED FOR WHEEZE OR FOR SHORTNESS OF BREATH Rx Instructions: INHALE 1 PUFF BY MOUTH 4 TIMES A DAY NEEDED FOR WHEEZE OR FOR SHORTNESS OF BREATH cholecalciferol (vitamin D3) 1,250 mcg (50,000 unit) capsule See Rx Instructions .ROUTE .COMPLEX Qty: 12 0RF Dose Instruction: TAKE 1 CAPSULE BY MOUTH ONCE WEEKLY Rx Instructions: TAKE 1 CAPSULE BY MOUTH ONCE WEEKLY ropinirole 4 mg tablet See Rx Instructions .ROUTE .COMPLEX Qty: 90 3RF Dose Instruction: TAKE 1 TABLET BY MOUTH DAILY AT BEDTIME Rx Instructions: TAKE 1 TABLET BY MOUTH DAILY AT BEDTIME Date of admission: 02/14/25 09:00 Primary Care Provider: Angelic Cullen Admitting Provider: Katherin Gordillo Attending physician on admission: Katherin Gordillo Condition: Stable Quality VTE Prophylaxis VTE prophylaxis: pharmacologic ordered
== END 2025-02-16 15:10 | disposition home health service (06) ==
LOC: ANHED 22:08 → ANH3MEDSUR 02-14 06:52
PROVIDERS: Physician Assistant; Admitting Provider General Practice; Emergency Provider Family Medicine; PCP Physician Assistant; Visit Provider Physician Assistant
DX: S32.591A Other specified fracture of right pubis, initial encounter for closed fracture (principal); S32.599A Other specified fracture of unspecified pubis, initial encounter for closed fracture; V88.8XXA Person injured in other specified noncollision transport accidents involving motor vehicle, nontraffic, initial encounter; R94.31 Abnormal electrocardiogram [ECG] [EKG]; D50.9 Iron deficiency anemia, unspecified; F41.8 Other specified anxiety disorders; M15.9 Polyosteoarthritis, unspecified; E78.2 Mixed hyperlipidemia; I10 Essential (primary) hypertension; Z79.52 Long term (current) use of systemic steroids; G47.33 Obstructive sleep apnea (adult) (pediatric); Z15.01 Genetic susceptibility to malignant neoplasm of breast; M79.7 Fibromyalgia; Z96.652 Presence of left artificial knee joint; Z90.722 Acquired absence of ovaries, bilateral; Z98.84 Bariatric surgery status; Z90.49 Acquired absence of other specified parts of digestive tract; Z98.890 Other specified postprocedural states; Z90.710 Acquired absence of both cervix and uterus; Z82.49 Family history of ischemic heart disease and other diseases of the circulatory system; Z82.3 Family history of stroke; Z83.3 Family history of diabetes mellitus; Z80.3 Family history of malignant neoplasm of breast; Z82.61 Family history of arthritis; Z82.5 Family history of asthma and other chronic lower respiratory diseases
CPT/HCPCS: 36415; 70450; 71045; 73502; 73552; 80048; 80053; 82728; 83540; 83550; 83735; 85025; 85027; 85610; 93005; 96372; 96374; 96375; 96376; 97110; 97161; 97166; 97530; 97535; 99284; A9270; G0378; J1171; J1650; J2405

== ENCOUNTER 2025-03-14 14:07 | Outpatient (CLI) | payer OTHER, MEDICAID, SELFPAY ==
[2025-03-14 14:30] LABS: Hematocrit 33.6 % (37.0-47.0); Hemoglobin 9.9 g/dL (12.0-15.0); Immature Granulocyte Percent A 0.3 % (0-0.5); Lymphocytes Absolute Auto 1.61 K/mm3 (0.9-3.2); Mean Corpuscular HGB Conc 29.5 g/dl (32-36); Mean Corpuscular Hemoglobin 22.5 pg (26-34); Mean Corpuscular Volume 76.4 fl (80-100); Nucleated Red Blood Cells Absolute Auto 0.000 K/mm3 (0.0-0.012); Nucleated Red Blood Cells Perc 0.0 % (0.0-0.2); Platelet Count Result 290 k/mm3 (150-375); Red Blood Count 4.40 M/mm3 (4.2-5.4); White Blood Count 7.9 K/mm3 (4.5-10.0)
[2025-03-14 14:58] LABS: Hypochromasia 1+
[2025-03-14 14:59] LABS: Ovalocytes Occasional; Schistocytes None Seen
[2025-03-14 15:00] LABS: Iron 64 ug/dL (37-170)
[2025-03-14 15:10] LABS: Percent Iron Saturation 15 % (20-50)
--- OUTSIDE RECORDS SUMMARY | 2025-03-14 15:39 | XMS_ITS | Encounter Summary ---
Author Organization [facility] Address [address] [place] [address] Phone Care Team Providers Care Channel Account Manager Name Role Phone Gabrielle Thompson MD Primary Care Provider [phone] Tasha Blakely MD Primary Care Pr ovider Shanel Ventura NP Primary Care Provider [phone] Encounter Details Date Type Department Care Team (Latest Contact Info) Description 02/08/2018 Orders Only [facility] Scanning, Provider Social History Tobacco Use Types Packs/Day Years Used Date Smoking Tobacco: Never Smokeless Tobacco: Never Comments Unknown Sex and Gender Information Value Date Recorded Sex Assigned at Not on file Legal 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 Gender Identity Female 04/30/2022 8:02 PM 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
--- OUTSIDE RECORDS SUMMARY | 2025-03-14 15:39 | XMS_ITS | Clinical Summary ---
Author Organization [facility] Address [address], [address] [address] Phone Care Team Providers Care Tourist Agent Name Role Phone Bridgervitaly Shanel Louise ALMONTE Primary Care Provider [phone] Social History Tobacco Use Types Packs/Day Years [...] this topic Insurance [place]ICAID [place] Care Teams Tourist Agent Relationship Specialty Start Date End Date Shanel Ventura APRN PCP - General Advanced Practice Nurse 11/29/20
--- OUTSIDE RECORDS SUMMARY | 2025-03-14 15:39 | XMS_ITS | Clinical Summary ---
Author Organization [facility] Address [address] [place] [address] Phone Care Team Providers Care 411 Directory Assistance Operator Name Role Phone Beena Owen MD Primary [...] daily. 180 Tablet 3 07/10/2024 7:52 PM BUSINESS BANKING OFFICER 4 Active DULoxetine (CYMBALTA) 60 mg Capsule, Delayed Release(E.C.) Take 1 Capsule (60 mg) by mouth daily. 90 Capsule 3 07/10/2024 7:52 PM BUSINESS BANKING OFFICER 4 Active omeprazole (PriLOSEC) 40 mg Capsule, Delayed Release(E.C.) Take 1 Capsule (40 mg) by mouth daily. 90 Capsule 1 07/10/2024 7:52 PM BUSINESS BANKING OFFICER 4 Active ergocalciferol (Vitamin D2) 50,000 unit capsuleIndicat ions:Vitamin D deficiency TAKE 1 CAPSULE BY MOUTH EVERY WEEK (every 7 days) 12 Capsule 07/10/2024 7:52 PM BUSINESS BANKING OFFICER 4 Active rOPINIRole (REQUIP) 4 mg Tablet Take 1 Tablet (4 mg) by mouth daily at bedtime. 90 Tablet 3 5 Active traZODone (DESYREL) 100 mg tablet Take 1 Tablet (100 mg) by mouth daily at bedtime. 90 Tablet 3 07/10/2024 7:52 PM BUSINESS BANKING OFFICER 5 Active cyanocobalamin (VITAMIN B-12) 1,000 mcg/mL SolutionIndica tions:Vitamin B12 deficiency (non anemic) INJECT 1000 MCG SUBCUTANEOUSLY ONCE A WEEK FOR 4 WEEKS, FOLLOWED BY ONCE A MONTH FOR 4 MONTHS 8 mL 1 07/10/2024 7:52 PM BUSINESS BANKING OFFICER 5 Active Syringe with Needle, Disp, (BD Luer-Kesha Syringe) 3 mL 25 gauge x 1 SyringeIndicat ions:Vitamin B12 deficiency (non anemic) Use as directed to administer b12 (cyaocobalamin). 8 Each 07/10/2024 7:52 PM BUSINESS BANKING OFFICER 5 Active tiZANidine (ZANAFLEX) 4 mg Tablet Take 1 Tablet (4 mg) by mouth every 6 hours as needed for spasms 30 Tablet 1 07/10/2024 7:52 PM BUSINESS BANKING OFFICER 5 Active Active Problems Problem Noted Date [...] Encounters Date Type Department Care Team Description 02/28/2025 External Device Data ST[facility] ABSTRACTION Provider, Abstract 01/24/2025 External Device Data [facility] ABSTRACTION Provider, Abstract 12/27/2024 External Device Data [facility] ABSTRACTION Provider, Abstract from Last 3 Months Immunizations Immunization Administration Dates Next Due (ADACEL/BOOSTRIX)(10 YR UP) TDAP VACCINE, 0.5ML, IM 09/07/2018 (PFIZER)(12 YR UP) COVID-19 VACCINE - EMERGENCY USE AUTHORIZATION, MRNA, [id number](PF) 30 MCG/0.3 ML IM SUSP 08/20/2020 INFLUENZA VACCINE QUADRIVALENT 6 MOS UP PF IM ,03/14/2020 Family History Medical History Relation Name Comments Depression Father [place] Diabetes Father [place] Heart Disease Father [place] High Cholesterol Father [place] Hypertension Father [place] Respiratory Disease Father [place] COPD Breast Cancer Mother Vero Osorio Osteoporosis [...] 81.6 kg (180 lb) 03/23/2024 8:25 AM BUSINESS BANKING OFFICER Height 167.6 cm (5' 6) 03/23/2024 8:25 AM BUSINESS BANKING OFFICER Body Mass Index 29.05 03/23/2024 8:25 AM BUSINESS BANKING OFFICER Plan of Treatment Health Maintenance Due Date Last Done Comments Pre-Diabetes and Diabetes Screening 1960 HPV/Cotest (21-29) 1981 CERVICAL CANCER SCREENING 1990 HPV/Cotest (30-65) 1990 PAP SMEAR 1990 FIT-DNA Q 3 years 2005 FIT/FOBT Q 1 year 2005 Flex Sig/CT Colonography Q 5 years 2005 RSV VACCINE (60+ or ) (1 - Risk 50-74 years 1-dose series) 2010 ZOSTER VACCINE (1 of 2) 2010 BREAST CANCER SCREENING 11/05/2021 11/06/19 21, 02/08/2015, 02/08/2015 COLORECTAL SCREENING 10/05/2022 10/05/2012 Colorectal Cancer Screening 10/05/2022 Preventative Visit- Commercial 05/11/2024 INFLUENZA VACCINE (#1) 2024 02/25/2021, 2019 COVID-19 Vaccine (2 - 2024-26 season) 01/09/202504/2021 DTAP/TDAP/TD VACCINES (2 - T d or Tdap) 09/07/2028 09/07/2018 Insurance [facility] Address: [facility] [id number] [place] [address] RX [employer] (INTERNAL) [facility] RX [employer] RX Member Subscriber Plan / Payer (Ef fective 2024-Present) Name:Anayeli Carranza Relation to Subscriber:Self Name:Anayeli Carranza Subscriber ID:Not on file Payer ID:Not on file Group ID:[id number] Type:RX Commercial Address: [address] Care Teams 411 Directory Assistance Operator Relationship Specialty [place] [address] [place] [id number] PCP - General Family Practice 11/03/23
--- OUTSIDE RECORDS SUMMARY | 2025-03-14 15:39 | XMS_ITS | Clinical Summary ---
Author Organization [facility] Address [address] [place] [address] Care Team Providers Care Projector Operator Name Role Phone Shanel Ventura NP Primary Care Provider Allergies Active Allergy Reactions [...] on file Legal Sex Female 9:47 AM SQL SSRS DEVELOPER Gender Identity Female 04/30/2022 8:02 PM SQL SSRS DEVELOPER Sexual Orientation Straight 04/30/2022 8: 02 PM SQL SSRS DEVELOPER Last Filed Vital Signs Vital Sign Reading [...] 12/13/2021 11:52 AM CDT Plan of Treatment Not on file Insurance [address] [address] Care Teams Projector Operator Relationship Specialty Start Date End Date Shanel Ventura NP [address] [place] [address] [place] [address] PCP - General Nurse Practitioner 03/01/20
--- OUTSIDE RECORDS SUMMARY | 2025-03-14 15:39 | XMS_ITS | Encounter Summary ---
Author Organization [facility] Address [facility] [place] [address] Care Team Providers Care Filler Shaker Name Role Phone Shanel Ventura Primary Care Provider + Susana Dixon MD Primary Care Provider + Encounter Details Date Type Department Care Team (Late st Contact Info) Description 11/01/2019 Lab Requisition [facility] [address] [place] [id number] Social History Tobacco Use Types Packs/Day Years Used Date Smoking Tobacco: Never Smokeless Tobacco: Never Alcohol Use Standard Drinks/Week Comments No 0 (1 standard drink = 0.6 oz pur e alcohol) Comments No Sex and Gender Information Value Date Recorded Sex Assigned at Not on file Legal Sex Female 6:41 PM MICROFILM TECHNICIAN Gender Identity Not on file Sexual Orientation [...] Not detected, Invalid 11/01/2019 8:52 PM CDT [facility] MICRO[facility]OLOG[facility] Microbiology SPECIMEN FROM NASOPHARYNGEAL STRUCTURE [...] CENTER MICROBIOLOGY [address] [place], [place] [address], [facility] [phone] documented in this encounter Visit Diagnoses Not on filedocumented in this encounter Additional Health Concerns Infection Onset Date Last Indicated Resolved Time COVID-19 Under Investigation 10/31/2019 10/31/2019 11/01/2019 8:52 PM CDT documented as of this encounter Care Teams Filler Shaker Relationship Specialty Start Date End Date Shanel Ventura APRN-ROWENA [address] [address] PCP - General Nurse Practitioner 04/27/19 01/21/22 Susana Dixon MD [address] [place] [address] PCP - General 01/22/22 documented as of this encounter
--- OUTSIDE RECORDS SUMMARY | 2025-03-14 15:39 | XMS_ITS | Clinical Summary ---
Author Organization [facility] Address [address] [facility] [place] [address] Care Team Providers Care Senior Technical Project Manager Name Role Phone Susana Dixon MD Primary Care Provider + Source Comments [facility],non-owned Affiliates and Associated Physician Practices is amultiple site organization consisting of ambulatory clinics and hospital sitesin [place], [place], [place] and [place]. This disclosure is being madepursuant to the Care Everywhere program and may not contain all information available regarding this patient. Last updated 18.[facility] Allergies Active Allergy Reactions Criticality Noted Date [...] on file Legal Sex Female 6:41 PM MEAT PRESS OPERATOR Gender Identity Not on file Sexual Orientation [...] patient's age to complete this topic Insurance [facility] MEDICAID Care Teams Senior Technical Project Manager Relationship Specialty Start Date End Date Susana Dixon MD [address] [place] [address] PCP - General 01/22/22
--- OUTSIDE RECORDS SUMMARY | 2025-03-14 15:39 | XMS_ITS | Clinical Summary ---
Author Organization [facility] Address [address] [place] [address] Care Team Providers Care Director Network Development Name Role Phone Zain Garnett MD Unavailable [phone] None, Provider MD Primary Care Provider [...] 07/04/2018 Assessment & Plan (07/04/2018 8:08 AM SKEIN BANDER): Suspect lipoma but given tenderness and her concern will get US Acute cystitis without hematuria 07/04/2018 Assessment & Plan (07/04/2018 8:10 AM SKEIN BANDER): Suspect some of her residual symptoms 2/2 to antibiotic as should be treated. She will see how she feels after completing Pernicious anemia 01/04/2018 Paroxysmal atrial fibrillati on with rapid ventricular response 12/18/2017 Obesity (BMI 30.0-34.9) 12/18/2017 ZULEMA (obstructive sleep apnea) 12/18/2017 GERD (gastroesophageal reflux disease) 8 Neck pain, chronic 08/17/2017 Anxiety 08/05/2017 Assessment & Plan (07/04/2018 8:09 AM SKEIN BANDER): Needs refill. Currently controlled on the fluoxetine 60mg BRCA1 positive 08/05/2017 Fatty liver disease, nonalcoholic 08/05/2017 Fibromyalgia 08/05/2017 Herniation of intervertebral disc 08/05/2017 Herpes zoster 08/05/2017 Migraines 08/05/2017 Rheumatoid arthritis 08/05/2017 Resolved Problems Problem Noted Date Diagnosed Date [...] 1960 Annual Physical 12/22/1963 Hepatitis C 1978 Hepatitis A Vaccines (1 of 2 - Risk 2-dose series) 12/22/1979 Cervical Cancer Screening Pap with HPV Testing (Age 30 to 64) Every 5 Years 1990 Cervical Cancer Screening with HPV 1990 Mammogram Screening 2000 Pneumococcal Vaccine: 50+ Years (1 of 1 - PCV) 2010 Zoster Vaccines (1 of 2) 2010 RSV Immunization or 60+ Years (1 - Risk 60-74 years 1-dose series) 2020 Colorectal Cancer Screening Colonoscopy (10 Years) 10/05/2022 10/05/2012 COVID-19 Vaccine ( season) 2025 04/05/2022, 04/29/2021, 09/20/2020, Additional history [...] Jody - 03/14/2018 Documented hx of procedure us Generic Conversion Md [facility] PROCEDURE ORDERABLES Final Result [facility] TO EPIC CONVERSION from Last 3 Months or Most Recently Relevant to Health Maintenance Insurance [employer] MEDICAID Care Teams Director Network Development Relationship Specialty Start Date End Date None, Provider, PCP - General UNKNOWN PHYSICIAN SPECIALTY 07/08/23 Zain Garnett MD [address] [facility] [address] [place] [address] Marquita Merchandising Manager CARDIOVASCULAR DISEASE 12/17/17
[2025-03-14 17:52] LABS: Alanine Aminotransferase 12 U/L (6-35); Albumin Level 4.0 g/dL (3.5-5.1); Alkaline Phosphatase 126 U/L (38-126); Anion Gap 4 mmol/L (4-12); Aspartate Amino Transferase 30 U/L (14-36); Bilirubin,Total 0.5 mg/dL (0.2-1.3); Blood Urea Nitrogen 13 mg/dL (7-17); Calcium 9.3 mg/dL (8.4-10.2); Carbon Dioxide 30 mmol/L (22-30); Chloride 102 mmol/L (98-107); Estimated Glomerular Filt Rate > 60; Glucose 91 mg/dL (65-110); Potassium 4.3 mmol/L (3.4-5.0); Sodium 136 mmol/L (137-145); Total Protein 7.2 g/dL (6.3-8.2)
[2025-03-14 18:47] LABS: Vitamin B12 282.0 pg/mL (239-931)
== END 2025-03-14 14:08 | disposition home or self-care (01) ==
LOC: ANHLAB 14:09
PROVIDERS: PCP Family Medicine; Visit Provider Physician Assistant
DX: E55.9 Vitamin D deficiency, unspecified (principal); E53.8 Deficiency of other specified B group vitamins; D64.9 Anemia, unspecified; D50.9 Iron deficiency anemia, unspecified
CPT/HCPCS: 36415; 80053; 82306; 82607; 83540; 83550; 85025

== ENCOUNTER 2025-04-30 12:18 | Emergency (ER) | payer OTHER, MEDICAID, SELFPAY ==
--- OUTSIDE RECORDS SUMMARY | 2022-04-01 07:55 | XMS_ITS | Continuity of Care Document ---
Author Organization [facility] Address [address] [place] [address] Phone Care Team Providers Care Ladle Watcher Name Role Phone Skip Munroe DO Unavailable Unavailab le Allergies, Adverse Reactions, Alerts Substance Reaction Status Criticality No Known Allergies Active No Inform ation Medications Medication Instructions Dosage Effective Dates (start - stop) Status Comments FLUOXETINE HCL (unknown strength) take 1 capsule by oral route every day Not Available - Active trazodone 100 mg tablet take 1 tablet by oral route every day after meals 100 MG - Active ROPINIROLE HCL (unknown strength) take 1 tablet by oral route 3 times every day Not Available - Active Procedures Procedure Date RADEX KNE COMPL 4/MORE VIEWS OFFICE/OUTPATIENT VISIT NEW Advance Directives Directive Yes / No Effective Date File Name Other Directive No N/A N/A WARNING:The information contained in this section is historical and is provided for information only and does not constitute a legal document or any assurance that the information is still accurate. Please verify the information with the frazier of the legal document before using it for clinical purposes. Encounters Encounter Description Practice Location Reason(s) For Visit Diagnoses Date Provider Providers Copied on Encounter OFFICE/OUTPAT IENT VISIT NEW [facility] , [address], [place], [address], [place] tel:[phone] [facility] Gomer Pain in left kneeBody mass index [BMI] 32.0-32.9, adultPrimary osteoarthritis of right kneeLumbar radiculopathy [address] [place], [place], [place], [id number] . tel: [phone] Family History Family Member Type Diagnosis Age At Onset Father Problem Cardiovascular disease Payers Payer name Insurance type Covered alliance party ID Darío omer(s) [employer] OT [id number] Social History Type Description Quantity Date Captured Comments Alcohol Use Details Unknown Caffeine Use Details Unknown Tobacco Use Status Current non-smoker Smoking Status Never smoker Non-Smoking Tobacco Use Details : No Details Available : No Details Available Sex Male Vital Signs Date / Time: Height Weight BMI Pulse Rate Blood Pressure Temperature Respiratory Rate Body Surface Area Head Circumference Head Circ. Percentile Wt./Conor. Percentile BMI percentile Pulse Ox Inhaled Ox 2:25 PM 66.00 in 90.718 kg (200.00 lbs) 32.2 8 kg/m eter (2) Chief Complaint And Reason For Visit No Information Reason For Referral Reason For Referral No Information Plan Of Treatment Date Type Action Status Referral Ordered: RADEX KNE COMPL 4/MORE VIEWS Bilateral knee ordered History Of Present Illness Encounter Date Complaint History Of Prese nt Illness No Information Functional Status Date Functional Assessmen t No Information Instructions Date Instruction Additional Infor mation Giving encouragement to exercise Related to Body mass index [BMI] 32.0-32.9, adult Assessments Type Assessment Date assessment Pain in left knee assessment Body mass index [BMI] 32.0-32.9, adult assessment Primary osteoarthritis of right knee assessment Lumbar radiculopathy Patient Care Teams Name Effective Dates (start - stop) Status Members No Information
--- NOTE | ~2025-04-30 | XR_ITS ---
XR lumbar spine min 4V 04/30/2025 14:22 Indication: Back pain Procedure: 5 views lumbar spine Comparison: 10/07/2023 Findings: There is disc narrowing at all lumbar levels. Disc narrowing most pronounced at L4-5. Vertebral body heights are maintained. There is multilevel facet hypertrophy with grade 1 degenerative spondylolisthesis at L4-5 without significant change. No acute fracture or traumatic malalignment. There is advanced multilevel facet hypertrophy at L3-4 through L5-S1. There is mild dextrocurvature of the lumbar spine. There are cholecystectomy clips. Sacral foramen are symmetric. Impression: 1: Severe lumbar spondylosis. Reviewed, dictated and finalized at location O. ECT ADMINISTRATIVE ASSISTANT Impression: 1: Severe lumbar spondylosis.
--- NOTE | ~2025-04-30 | XR_ITS ---
EXAMINATION: XR chest 2V 04/30/2025 14:22 INDICATION: Shortness of breath PROCEDURE: 2 view chest COMPARISON: 02/13/2025 FINDINGS: There is a new ill-defined opacity of the right upper lung. No evidence for edema, or pneumothorax. The cardiomediastinal silhouette is within normal limits. There are no pleural effusions. There is no pneumothorax suspected. IMPRESSION: 1: Ill-defined opacity right upper lung which may represent atelectasis or pneumonia, although underlying mass is not excluded. Clinically correlate. Consider follow-up CT in 1-2 months following appropriate therapy. Reviewed, dictated and finalized at location O. UNICATION COORDINATOR IMPRESSION: 1: Ill-defined opacity right upper lung which may represent atelectasis or pne umonia, although underlying mass is not excluded. Clinically correlate. Conside r follow-up CT in 1-2 months following appropriate therapy.
--- NOTE | ~2025-04-30 | CT_ITS ---
EXAMINATION:CT diagnostic chest w con DATE: 04/30/2025 16:36 INDICATION: 64-year-old finding of opacity the right upper lung further evaluation. Smoking history not available TECHNIQUE: Computed tomography (CT) of the chest was performed 100 cc intravenous contrast. Automated exposure control and iterative reconstruction technique were employed. The dose-length product (DLP) was 562.77 mGy-cm. COMPARISON: Chest x-ray dated 04/30/2025, 02/13/2025 FINDINGS: Lungs are mildly emphysematous. Minimal peripheral patchy airspace opacity is noted in the posterior segment of right upper lobe. No well-defined mass of the right lung is seen. Mildly enlarged right hilar node 10 mm in diameter. Spinal adenopathy or effusion. Postoperative changes of stomach in the upper abdomen. IMPRESSION: 1. Patchy airspace opacity of posterior aspect of right upper lobe in the periphery. Mild right hilar adenopathy. No well-defined pulmonary mass. Possible patchy pneumonia in the right upper lobe. Clinical follow-up and CT follow-up are recommended after treatment to ensure benign process. Reviewed, dictated and finalized at location T. OR PROJECT MANAGER IMPRESSION: 1. Patchy airspace opacity of posterior aspect of right upper lobe in the perip fe. Mild right hilar adenopathy. No well-defined pulmonary mass. Possible pat juan pneumonia in the right upper lobe. Clinical follow-up and CT follow-up are recommended after treatment to ensure benign process.
--- NOTE | ~2025-04-30 | XR_ITS ---
XR shoulder LT min 2V 04/30/2025 14:22 INDICATION: Left shoulder pain PROCEDURE: 4 views left shoulder COMPARISON: No prior studies for comparison. FINDINGS: Fracture, dislocation or subluxation is not identified. The soft tissues appear within normal limits. No foreign bodies are identified. IMPRESSION: 1: NO ACUTE BONE OR JOINT ABNORMALITY IDENTIFIED. Reviewed, dictated and finalized at location O. INVESTIGATOR
--- OUTSIDE RECORDS SUMMARY | 2025-04-30 12:20 | XMS_ITS | Clinical Summary ---
Author Organization [facility] Address [address] [place] [address] Care Team Providers Care Marketing Consultant Name Role Phone Susana Dixon MD Primary Care Provider + Source Comments [facility],non-owned Affiliates and Associated Physician Practices is amultiple site organization consisting of ambulatory clinics and hospital sitesin [place], [place], [place] and [place]. This disclosure is being madepursuant to the Care Everywhere program and may not contain all information available regarding this patient. Last updated 18.[facility] Allergies Active Allergy Reactions Criticality Noted Date [...] on file Legal Sex Female 6:41 PM CREDIT CHECKER Gender Identity Not on file Sexual Orientation [...] patient's age to complete this topic Insurance [facility] MEDICAID Care Teams Marketing Consultant Relationship Specialty Start Date End Date Susana Dixon MD [address] [place] [address] PCP - General 01/22/22
--- OUTSIDE RECORDS SUMMARY | 2025-04-30 12:20 | XMS_ITS | Clinical Summary ---
Author Organization [facility] Address [address], [address] [address] Phone Care Team Providers Care Internet Sales Director Name Role Phone Bridgervitaly Shanel Louise ALMONTE Primary Care Provider [phone] Social History Tobacco Use Types Packs/Day Years [...] complete this topic Human Papillomavirus (HPV) Immunization (No Doses Required) Completed Meningococcal Immunization (ACWY) Aged Out No longer eligible based on patient's age to complete this topic Rotavirus Immunization Aged Out No lo nger eligible based on patient's age to complete this topic Insurance [place] Care Teams Internet Sales Director Relationship Specialty Start Date End Date Shanel Ventura APRN PCP - General Advanced Practice Nurse 11/29/20
--- OUTSIDE RECORDS SUMMARY | 2025-04-30 12:20 | XMS_ITS | Encounter Summary ---
Author Organization [facility] Address [address] [place] [address] Phone Care Team Providers Care Hspt Tutor Name Role Phone Gabrielle Thompson MD Primary Care Provider [phone] Tasha Blakely MD Primary Care Pr ovider Shanel Ventura NP Primary Care Provider [phone] Encounter Details Date Type Department Care Team (Latest Contact Info) Description 02/08/2018 Orders Only [facility] Scanning, Provider Social History Tobacco Use Types Packs/Day Years Used Date Smoking Tobacco: Never Smokeless Tobacco: Never Comments Unknown Sex and Gender Information Value Date Recorded Sex Assigned at Not on file Legal Sex Female 9:47 AM PAPER WOOD CUTTER Gender Identity Female 04/30/2022 8:02 PM PAPER WOOD CUTTER Sexual Orientation Straight 04/30/2022 8: 02 PM PAPER WOOD CUTTER documented as of this encounter Plan of [...] on filedocumented in this encounter Care Teams Hspt Tutor Relationship Specialty [place] [address] [place] [address] PCP - General 02/08/18 08/15/18 Tasha Blakely MD [address] [address] PCP - General Internal Medicine 08/16/18 02/29/20 Shanel Ventura NP [address] [place] [address] PCP - General Nurse Practitioner 03/01/20 documented as of this encounter
--- OUTSIDE RECORDS SUMMARY | 2025-04-30 12:20 | XMS_ITS | Clinical Summary ---
Author Organization [facility] Address [address] [place] [address] Phone Care Team Providers Care Township Supervisor Name Role Phone Beena Owen MD Primary [...] daily. 180 Tablet 3 07/10/2024 7:52 PM EDITORIAL DIRECTOR 4 Active DULoxetine (CYMBALTA) 60 mg Capsule, Delayed Release(E.C.) Take 1 Capsule (60 mg) by mouth daily. 90 Capsule 3 07/10/2024 7:52 PM EDITORIAL DIRECTOR 4 Active omeprazole (PriLOSEC) 40 mg Capsule, Delayed Release(E.C.) Take 1 Capsule (40 mg) by mouth daily. 90 Capsule 1 07/10/2024 7:52 PM EDITORIAL DIRECTOR 4 Active ergocalciferol (Vitamin D2) 50,000 unit capsuleIndicat ions:Vitamin D deficiency TAKE 1 CAPSULE BY MOUTH EVERY WEEK (every 7 days) 12 Capsule 07/10/2024 7:52 PM EDITORIAL DIRECTOR 4 Active rOPINIRole (REQUIP) 4 mg Tablet Take 1 Tablet (4 mg) by mouth daily at bedtime. 90 Tablet 3 5 Active traZODone (DESYREL) 100 mg tablet Take 1 Tablet (100 mg) by mouth daily at bedtime. 90 Tablet 3 07/10/2024 7:52 PM EDITORIAL DIRECTOR 5 Active cyanocobalamin (VITAMIN B-12) 1,000 mcg/mL SolutionIndica tions:Vitamin B12 deficiency (non anemic) INJECT 1000 MCG SUBCUTANEOUSLY ONCE A WEEK FOR 4 WEEKS, FOLLOWED BY ONCE A MONTH FOR 4 MONTHS 8 mL 1 07/10/2024 7:52 PM EDITORIAL DIRECTOR 5 Active Syringe with Needle, Disp, (BD Luer-Kesha Syringe) 3 mL 25 gauge x 1 SyringeIndicat ions:Vitamin B12 deficiency (non anemic) Use as directed to administer b12 (cyaocobalamin). 8 Each 1 07/10/2024 7:52 PM EDITORIAL DIRECTOR 5 Active tiZANidine (ZANAFLEX) 4 mg Tablet Take 1 Tablet (4 mg) by mouth every 6 hours as needed for spasms 30 Tablet 1 07/10/2024 7:52 PM EDITORIAL DIRECTOR 5 Active Active Problems Problem Noted Date [...] Encounters Date Type Department Care Team Description 03/21/2025 External Device Data ST[facility] ABSTRACTION Provider, Abstract 02/28/2025 External Device Data ST[facility] ABSTRACTION Provider, Abstract from Last 3 Months Immunizations Immunization Administration Dates Next Due (ADACEL/BOOSTRIX)(10 YR UP) TDAP VACCINE, 0.5ML, IM 09/07/2018 (PFIZER)(12 YR UP) COVID-19 VACCINE - EMERGENCY USE AUTHORIZATION, MRNA, [id number](PF) 30 MCG/0.3 ML IM SUSP 08/20/2020 INFLUENZA VACCINE QUADRIVALENT 6 MOS UP PF IM ,03/14/2020 Family History Medical History Relation Name Comments Depression Father [place] Diabetes Father [place] Heart Disease Father [place] High Cholesterol Father [place] Hypertension Father [place] Respiratory Disease Father [place] COPD Breast Cancer Mother Vero Osorio Osteoporosis Mother Vero Osorio Relation Name Status Comments Father [place] Mother Vero Osorio Social History Tobacco Use [...] 81.6 kg (180 lb) 03/23/2024 8:25 AM EDITORIAL DIRECTOR Height 167.6 cm (5' 6) 03/23/2024 8:25 AM EDITORIAL DIRECTOR Body Mass Index 29.05 03/23/2024 8:25 AM EDITORIAL DIRECTOR Plan of Treatment Health Maintenance Due Date Last Done Comments HPV/Cotest (21-29) 1981 CERVICAL CANCER SCREENING 1990 [...] VACCINE (#1) 2024 02/25/2021, 2019 COVID-19 Vaccine ( - season) 01/09/202504/2021 DTAP/TDAP/TD VACCINES (2 - T d or Tdap) 09/07/2028 09/07/2018 Insurance RX [employer] (INTERNAL) [facility] RX [employer] RX Member Subscriber Plan / Payer (Ef fective 2024-Present) Name:Tere Anayeli M Relation to Subscriber:Self Name:Tere Anayeli M Subscriber ID:Not on file Payer ID:Not on file Group ID:[id number] Type:RX Commercial Address: [address] Care Teams Township Supervisor Relationship Specialty [place] [address] [facility] [address] [place] [phone] PCP - General Family Practice 11/03/23
--- OUTSIDE RECORDS SUMMARY | 2025-04-30 12:20 | XMS_ITS | Clinical Summary ---
Author Organization [facility] Address [address] [place] [address] Care Team Providers Care Casting And Pasting Supervisor Name Role Phone Shanel Ventura NP Primary Care Provider [phone] Allergies Active Allergy Reactions Criticality Noted Date [...] on file Legal Sex Female 9:47 AM WIND ENERGY MECHANIC Gender Identity Female 04/30/2022 8:02 PM WIND ENERGY MECHANIC Sexual Orientation Straight 04/30/2022 8: 02 PM WIND ENERGY MECHANIC Last Filed Vital Signs Vital Sign Reading [...] Plan of Treatment Not on file Insurance [address] [place] [address] Care Teams Casting And Pasting Supervisor Relationship Specialty Start Date End Date Shanel Ventura NP [address] [place] [address] [place] [address] PCP - General Nurse Practitioner 03/01/20
--- OUTSIDE RECORDS SUMMARY | 2025-04-30 12:20 | XMS_ITS | Encounter Summary ---
Author Organization [facility] Address [facility] [place] [address] Care Team Providers Care Vp Legal Affairs Name Role Phone Shanel Ventura Primary Care Provider + Susana Dixon MD Primary Care Provider + Encounter Details Date Type Department Care Team (Late st Contact Info) Description 11/01/2019 Lab Requisition [facility] [address] [place] [id number] Social History Tobacco Use Types Packs/Day Years Used Date Smoking Tobacco: Never Smokeless Tobacco: Never Alcohol Use Standard Drinks/Week Comments No 0 (1 standard drink = 0.6 oz pur e alcohol) Comments No Sex and Gender Information Value Date Recorded Sex Assigned at Not on file Legal Sex Female 6:41 PM SLEEVE SEWER Gender Identity Not on file Sexual Orientation [...] Not detected, Invalid 11/01/2019 8:52 PM CDT [facility] Microbiology SPECIMEN FROM NASOPHARYNGEAL STRUCTURE / Unknown Collection / Unknown 10/31/2019 1:02 PM CDT 11/01/2019 11:59 AM CDT Narrative [facility] - 11/01/2019 8:52 PM CDT This Real Time RT-PCR assay was developed and its performance characteristics determined by [facility]. This test has been [...] LAB - MICROBIOLOGY ORDERABLES Fi nal Result [facility] [address] [place], [place] [address], [facility] [phone] documented in this encounter Visit Diagnoses Not on filedocumented in this encounter Additional Health Concerns Infection Onset Date Last Indicated Resolved Time COVID-19 Under Investigation 10/31/2019 10/31/2019 11/01/2019 8:52 PM CDT documented as of this encounter Care Teams Vp Legal Affairs Relationship Specialty Start Date End Date Shanel Ventura APRN-ROWENA [address] [address] PCP - General Nurse Practitioner 04/27/19 01/21/22 Susana Dixon MD [address] [place] [address] PCP - General 01/22/22 documented as of this encounter
--- OUTSIDE RECORDS SUMMARY | 2025-04-30 12:20 | XMS_ITS | Clinical Summary ---
Author Organization [facility] Address [address] [place] [address] Care Team Providers Care Sheet Metal Mechanic Name Role Phone Zain Garnett MD Unavailable [phone] None, Provider MD Primary Care Provider [...] 07/04/2018 Assessment & Plan (07/04/2018 8:08 AM CUSTOMER EXPERIENCE LEADER): Suspect lipoma but given tenderness and her concern will get US Acute cystitis without hematuria 07/04/2018 Assessment & Plan (07/04/2018 8:10 AM CUSTOMER EXPERIENCE LEADER): Suspect some of her residual symptoms 2/2 to antibiotic as should be treated. She will see how she feels after completing Pernicious anemia 01/04/2018 Paroxysmal atrial fibrillati on with rapid ventricular response 12/18/2017 Obesity (BMI 30.0-34.9) 12/18/2017 ZULEMA (obstructive sleep apnea) 12/18/2017 GERD (gastroesophageal reflux disease) 8 Neck pain, chronic 08/17/2017 Anxiety 08/05/2017 Assessment & Plan (07/04/2018 8:09 AM CUSTOMER EXPERIENCE LEADER): Needs refill. Currently controlled on the fluoxetine [...] Most Recently Relevant to Health Maintenance Insurance [employer] Care Teams Sheet Metal Mechanic Relationship Specialty Start Date End Date None, Provider, PCP - General UNKNOWN PHYSICIAN SPECIALTY 07/08/23 Zain Garnett MD [address] [facility] [address] [place] [address] Marquita Machine Stuffer CARDIOVASCULAR DISEASE 12/17/17
[2025-04-30 12:40] VITALS: BP 126/71; PULSE 87; RESP 20; TEMP 38.2; O2SAT 98
[2025-04-30 14:39] LABS: Hematocrit 29.8 % (37.0-47.0); Hemoglobin 9.1 g/dL (12.0-15.0); Immature Granulocyte Percent A 0.6 % (0-0.5); Lymphocytes Absolute Auto 0.74 K/mm3 (0.9-3.2); Mean Corpuscular HGB Conc 30.5 g/dl (32-36); Mean Corpuscular Hemoglobin 22.9 pg (26-34); Mean Corpuscular Volume 74.9 fl (80-100); Nucleated Red Blood Cells Absolute Auto 0.000 K/mm3 (0.0-0.012); Nucleated Red Blood Cells Perc 0.0 % (0.0-0.2); Platelet Count Result 255 k/mm3 (150-375); Red Blood Count 3.98 M/mm3 (4.2-5.4); White Blood Count 6.3 K/mm3 (4.5-10.0)
[2025-04-30 14:48] LABS: Add Urine Microscopic? YES; Appearance Urine Cloudy (Clear); Glucose Urine UA Negative (Negative); Leukocyte Esterase Ur Negative LEU/UL (Negative); Nitrate Urine Negative (Negative); Non Pathogenic Casts 0-2; Specific Grav Ur 1.016 (1.001-1.035)
[2025-04-30 14:53] LABS: Alanine Aminotransferase 14 U/L (6-35); Albumin Level 3.5 g/dL (3.5-5.1); Alkaline Phosphatase 98 U/L (38-126); Anion Gap 6 mmol/L (4-12); Anisocytosis 1+; Aspartate Amino Transferase 25 U/L (14-36); Bilirubin,Total 0.3 mg/dL (0.2-1.3); Blood Urea Nitrogen 8 mg/dL (7-17); Calcium 8.1 mg/dL (8.4-10.2); Carbon Dioxide 29 mmol/L (22-30); Chloride 101 mmol/L (98-107); Estimated CRCL calculation 61 ml/min; Estimated Glomerular Filt Rate > 60; Glucose 91 mg/dL (65-110); Potassium 3.4 mmol/L (3.4-5.0); Sodium 136 mmol/L (137-145); Total Protein 6.5 g/dL (6.3-8.2)
[2025-04-30 14:54] LABS: Hypochromasia 1+; Microcytosis Occasional (NORMAL); Schistocytes None Seen
[2025-04-30 15:01] LABS: NT Pro B Type Natriuretic Pept 905 pg/mL (19.9-100)
[2025-04-30 15:15] LABS: Influenza A QL RT-PCR Negative (Negative); Influenza B QL RT-PCR Negative (Negative); RSV RNA, RT-PCR Negative (Negative); SARS-CoV-2 RNA PCR Negative (Negative)
[2025-04-30 15:46] LABS: Procalcitonin 0.1 ng/mL
--- NOTE | 2025-04-30 16:52 | ED.GENADULT ---
HPI - General Adult General Chief complaint: Upper Respiratory Infection Stated complaint: uri Time Seen by Provider: 04/30/25 13:28 Source: patient and family Mode of arrival: ambulatory Limitations: no limitations History of Present Illness HPI narrative: 64-year-old with history of hypertension, diabetes, asthma here with a complains of cough which is nonproductive has fever of collagen of 100.3 last night also complains of low back pain and left shoulder pain for past few days. Patient states that she fell hit her left shoulder. She states her elderly mother is sick with upper respiratory tract infection Onset (ago): day(s) (3) Severity: moderate Quality: aching Pain Consistency: constant Relieving factors: none Exacerbating factors: none Associated symptoms: denies other symptoms Related Data Home Medications ?Medication ?Instructions ?Recorded ?Confirmed ?Last Taken ?Type gabapentin 600 mg tablet 600 mg PO Q12H 02/14/25 04/20/25 Unknown History aspirin 81 mg tablet 81 mg PO DAILY 03/23/25 04/20/25 Unknown History Allergies Allergy/AdvReac Type Severity Reaction Status Date / Time hydrocodone Allergy Severe HALLUCINATI Verified 04/20/25 13:09 ONS morphine Allergy Severe ANAPHYLAXIS Verified 04/20/25 13:09 adhesive tape Allergy Intermediate Rash Verified 04/20/25 13:09 latex Allergy Intermediate Itching Verified 04/20/25 13:09 ketorolac Allergy Unknown Anxiety Verified 04/20/25 13:09 Sulfa (Sulfonamide Allergy Unknown shortness Verified 04/20/25 13:09 Antibiotics) of breath and itching Review of Systems Review of Systems: All systems reviewed & are unremarkable except as noted in HPI and below Constitutional: Constitutional: Reports no additional constitutional complaints Eyes: Eyes: Reports no additional eye complaints ENT: Reports system reviewed and no additional complaints, except as documented Cardiovascular: Cardiovascular: Reports no additional cardiovascular complaints Respiratory: Respiratory: Reports as per HPI Gastrointestinal: Gastrointestinal: Reports no additional gastrointestinal complaints Musculoskeletal: Musculoskeletal: Reports no additional musculoskeletal complaints Integumentary/Breasts: Skin/Breast: Reports system reviewed and no additional complaints, except as docu Neurologic: Reports system reviewed and no additional complaints, except as documented PMFSH Past Medical History Medical History Sciatica of right side Psychophysiological insomnia Other polyosteoarthritis Other chronic pain ZULEMA (obstructive sleep apnea) Neck pain Mixed hyperlipidemia Major depressive disorder, recurrent, moderate Lipid screening Insomnia due to psychological stress Gynecomastia, female Genetic susceptibility to malignant neoplasm of ovary Generalized anxiety disorder Family history of breast cancer BRCA2 positive Abnormal mammogram Abdominal pain in female COVID-19 Fibromyalgia History of sleep apnea History of hypertension Surgical History Surgical History Status post total left knee replacement Presence of unspecified artificial knee joint History of oophorectomy Bariatric surgery status History of cholecystectomy History of inguinal hernia repair History of hysterectomy Family History Family History Father Hypertension Cerebrovascular accident Family history of diabetes mellitus in first degree relative Family history of heart disease in male family member before age 55 Family history of type 1 diabetes mellitus Mother Hypertension Family history of malignant neoplasm of breast in first degree relative Other Asthma Depression Family history of allergic disorder Family history of arthritis Social History Social History Smoking status: Never smoker Second hand tobacco smoke exposure: No Alcohol intake: never Substance use: never Substance use type: does not use Lack of Transportation: No Lack of Food: Never True Current Housing: I Have Housing Concerned About Future Housing: No Difficulty Paying Gas/Electric Bills: No Difficulty Paying for Meds: No Currently Unemployed: No Education: Master's Degree or Higher Difficulty w/ Childcare or Family Care: No Living arrangements: with family Gender identity (if verbalized by the patient): Female Spiritual care concerns: No Exam Narrative: GENERAL: Well-appearing, well-nourished, and in no acute distress. HEAD: Normocephalic, atraumatic. EYES: PERRLA and EOMI. ENT: Nares clear, no rhinorrhea or epistaxis. Mucous membranes moist. NECK: Supple. CHEST: Clear to auscultation. No respiratory distress. HEART: Regular rate and rhythm. No murmur heard. Normal peripheral pulses. ABDOMEN: Soft, nontender, nondistended, normal active bowel sounds. EXTREMITIES: Normal range of motion. No edema. SKIN: Warm, dry, no rash. NEURO: No focal deficits. Alert and oriented x3. PSYCH: Normal mood and affect. Course Course Emergency Course: Patient comfortably resting on the bed informed her about the lab work, CT findings. Advised her to take antibiotic as prescribed. Vital Signs Vital signs: Vital Signs Temperature 38.2 C H 04/30/25 12:40 Pulse Rate 87 04/30/25 12:40 Respiratory Rate 20 04/30/25 12:40 Blood Pressure 126/71 04/30/25 12:40 Pulse Oximetry 98 04/30/25 12:40 Oxygen Delivery Room Air 04/30/25 12:40 Temperature 38.2 C H 04/30/25 12:40 Pulse Rate 87 04/30/25 12:40 Respiratory Rate 20 04/30/25 12:40 Blood Pressure 126/71 04/30/25 12:40 Pulse Oximetry 98 04/30/25 12:40 Oxygen Delivery Room Air 04/30/25 12:40 MDM Differential Diagnosis Differential Diagnosis: Bronchitis, pneumonia, lung mass, shoulder fracture, lumbosacral strain, DJD Lab Data MDM Lab Attestation statement: I personally reviewed the patient's lab results. 04/30/25 14:32 04/30/25 14:32 Labs: Lab Results 04/30/25 04/30/25 Range/Units 14:32 14:36 WBC 6.3 (4.5-10.0) K/mm3 RBC 3.98 L (4.2-5.4) M/mm3 Hgb 9.1 L (12.0-15.0) g/dL Hct 29.8 L (37.0-47.0) % MCV 74.9 L (80-100) fl MCH 22.9 L (26-34) pg MCHC 30.5 L (32-36) g/dl RDW 18.0 H (11.5-14.5) % Plt Count 255 (150-375) k/mm3 MPV 9.4 (7.4-10.4) fl Immature Gran % (Auto) 0.6 H (0-0.5) % Neut % (Auto) 78.6 H (45.5-73.1) % Lymph % (Auto) 11.8 L (18.3-44.2) % [place] % (Auto) 8.8 H (2.6-8.5) % Eos % (Auto) 0.0 (0-4.4) % Baso % (Auto) 0.2 (0.2-1.2) % Lymph # (Auto) 0.74 L (0.9-3.2) K/mm3 [place] # (Auto) 0.6 (0.1-0.6) K/mm3 Eos # (Auto) 0.0 (0-0.3) K/mm3 Baso # (Auto) 0.0 (0.0-0.1) K/mm3 Abs Immat Gran (auto) 0.04 H (0.00-0.031) K/mm3 Absolute Neuts (auto) 4.9 (1.3-6.7) K/mm3 Absolute Nucleated RBC 0.000 (0.0-0.012) K/mm3 Band Neutrophils % Not Reportable Nucleated RBC % 0.0 (0.0-0.2) % Platelet Estimate Adequate (Adequate) Hypochromasia 1+ Anisocytosis 1+ Microcytosis Occasional (NORMAL) Schistocytes None seen Sodium 136 L (137-145) mmol/L Potassium 3.4 (3.4-5.0) mmol/L Chloride 101 (98-107) mmol/L Carbon Dioxide 29 (22-30) mmol/L Anion Gap 6 (4-12) mmol/L BUN 8 D (7-17) mg/dL Creatinine 0.90 (0.7-1.0) mg/dL Estim Creat Clear Calc 61 ml/min Estimated GFR > 60 (59 - ) Glucose 91 (65-110) mg/dL Calcium 8.1 L (8.4-10.2) mg/dL Total Bilirubin 0.3 (0.2-1.3) mg/dL AST 25 (14-36) U/L ALT 14 (6-35) U/L Alkaline Phosphatase 98 (38-126) U/L NT-Pro-B Natriuret Pep 905 H (19.9-100) pg/mL Total Protein 6.5 (6.3-8.2) g/dL Albumin 3.5 (3.5-5.1) g/dL Procalcitonin 0.1 ng/mL Urine Color Yellow (Yellow) Urine Appearance Cloudy H (Clear) Urine pH 6.0 (5.0-9.0) Ur Specific [place] 1.016 (1.001-1.035) Urine Protein Negative (Negative) mg/dL Urine Glucose (UA) Negative (Negative) mg/dL Urine Ketones Negative (Negative) mg/dL Ur Blood (Man) Negative (Negative) Urine Nitrate Negative (Negative) Urine Bilirubin Negative (Negative) Urine Urobilinogen 0.2 (<2.0) mg/dL Leukocyte Esterase Rfl Negative (Negative) BRIANNE/UL Urine RBC 0-2 (0-2) /hpf Urine WBC 0-5 (0-3) /hpf Ur Squamous Epith Cells None seen (Few) /hpf Urine Bacteria None seen /hpf Urine Casts 0-2 Influenza A (RT-PCR) Negative (Negative) Influenza B (RT-PCR) Negative (Negative) RSV (RT-PCR) Negative (Negative) SARS-CoV-2 RNA (RT-PCR) Negative (Negative) Imaging Data Radiologist's impression: ITS Impressions Chest X-Ray 04/30/25 14:24 IMPRESSION: 1: Ill-defined opacity right upper lung which may represent atelectasis or pneumonia, although underlying mass is not excluded. Clinically correlate. Consider follow-up CT in 1-2 months following appropriate therapy. Shoulder X-Ray 04/30/25 14:26 IMPRESSION: 1: NO ACUTE BONE OR JOINT ABNORMALITY IDENTIFIED. Lumbar Spine X-Ray 04/30/25 14:34 Impression: 1: Severe lumbar spondylosis. Chest CT 04/30/25 16:37 IMPRESSION: 1. Patchy airspace opacity of posterior aspect of right upper lobe in the periphery. Mild right hilar adenopathy. No well-defined pulmonary mass. Possible patchy pneumonia in the right upper lobe. Clinical follow-up and CT follow-up are recommended after treatment to ensure benign process. Discharge Plan Discharge Clinical Impression: Pneumonia Qualifiers: Pneumonia type: due to unspecified organism Laterality: left Lung location: unspecified part of lung Qualified Code(s): J18.9 - Pneumonia, unspecified organism Degenerative joint disease (DJD) of lumbar spine Qualifiers: Spinal osteoarthritis complication: unspecified spinal osteoarthritis Qualified Code(s): M47.816 - Spondylosis without myelopathy or radiculopathy, lumbar region Contusion of shoulder Qualifiers: Encounter type: initial encounter Laterality: left Qualified Code(s): S40.012A - Contusion of left shoulder, initial encounter Patient Disposition: Home Condition: Stable Instructions: Antibiotic Form, Pneumonia (ED) Additional Instructions: take antibiotic as prescribed , continue home medications, follow with your doctor in 1 wk Patient Language: Chilean Prescriptions: New doxycycline monohydrate 100 mg capsule 100 mg PO BID Qty: 14 0RF No Action (DME) syringe with needle 1 mL 25 gauge x 1 syringe See Rx Instructions .Route Qty: 100 0RF Rx Instructions: use for B12 injection weekly fluoxetine 40 mg capsule 40 mg PO DAILY Qty: 90 1RF acetaminophen-codeine 300-30 mg tablet 1 tablet PO BID PRN (Reason: pain) Qty: 60 0RF gabapentin 600 mg tablet 600 mg PO Q12H omeprazole 40 mg capsule,delayed release(DR/EC) 40 mg PO DAILY Qty: 90 3RF tizanidine 4 mg capsule 4 mg PO QHS Qty: 90 3RF trazodone 100 mg tablet See Rx Instructions .ROUTE .COMPLEX Qty: 90 3RF Dose Instruction: TAKE 1 TABLET BY MOUTH EVERY DAY AT BEDTIME NEEDED FOR INSOMNIA Rx Instructions: TAKE 1 TABLET BY MOUTH EVERY DAY AT BEDTIME NEEDED FOR INSOMNIA albuterol sulfate 90 mcg/actuation HFA aerosol inhaler See Rx Instructions .ROUTE .COMPLEX Qty: 6.7 3RF Dose Instruction: INHALE 1 PUFF BY MOUTH 4 TIMES A DAY NEEDED FOR WHEEZE OR FOR SHORTNESS OF BREATH Rx Instructions: INHALE 1 PUFF BY MOUTH 4 TIMES A DAY NEEDED FOR WHEEZE OR FOR SHORTNESS OF BREATH ropinirole 4 mg tablet See Rx Instructions .ROUTE .COMPLEX Qty: 90 3RF Dose Instruction: TAKE 1 TABLET BY MOUTH DAILY AT BEDTIME Rx Instructions: TAKE 1 TABLET BY MOUTH DAILY AT BEDTIME ferrous sulfate 325 mg (65 mg iron) tablet 325 mg PO DAILY Qty: 30 2RF fluticasone propionate 50 mcg/actuation spray,suspension 1 spray intranasal DAILY Qty: 16 0RF Rx Instructions: administer into each nostril mecobalamin (vitamin B12) 10,000 mcg recon soln 1,000 mcg IM WEEKLY Qty: 4 2RF aspirin 81 mg tablet 81 mg PO DAILY cholecalciferol (vitamin D3) 1,250 mcg (50,000 unit) capsule See Rx Instructions .ROUTE .COMPLEX Qty: 12 0RF Dose Instruction: TAKE 1 CAPSULE BY MOUTH ONCE WEEKLY Rx Instructions: TAKE 1 CAPSULE BY MOUTH ONCE WEEKLY Follow-up/Referrals: Destiny,Susana [Other] Time of Disposition: 16:55
[2025-04-30 17:12] VITALS: BP 124/69; PULSE 82; RESP 22; TEMP 37.3; O2SAT 96
== END 2025-04-30 17:15 | disposition home or self-care (01) ==
PROVIDERS: Emergency Provider Family Medicine
DX: J18.9 Pneumonia, unspecified organism (principal); M47.816 Spondylosis without myelopathy or radiculopathy, lumbar region; S40.012A Contusion of left shoulder, initial encounter; E11.9 Type 2 diabetes mellitus without complications; I10 Essential (primary) hypertension; W19.XXXA Unspecified fall, initial encounter; Z20.822 Contact with and (suspected) exposure to COVID-19
CPT/HCPCS: 36415; 71046; 71260; 72110; 73030; 80053; 81001; 83880; 84145; 85025; 87637; 99284; Q9967